=== PATIENT | female | born 1945 | race Caucasian/White ===

== ENCOUNTER → 2016-10-08 | Outpatient (CLI) | payer MEDICARE, OTHER ==
[2016-10-08 11:51] LABS: Basophils % (A) 1 %; CH 28.6; CHCM 32.6; Eosinophils # (A) 0.2 k/uL (0-0.7); Eosinophils % (A) 3 %; HCT 40.7 % (34.0-46.0); HGB 13.8 gm/dL (11.4-16.0); Luc # (Auto) 0.24; Luc % (Auto) 4; Lymphocytes # (A) 1.9 k/uL (1.0-4.8); Lymphocytes % (A) 34 %; MCH 29.8 pg (25.0-35.0); MCHC 33.8 g/dL (31.0-37.0); MCV 88.1 fL (80.0-100.0); Mean Platelet Volume 7.2; Monocytes # (A) 0.3 k/uL (0-1.0); Monocytes % (A) 5 %; Neutrophils % (A) 53 %; RBC 4.62 m/uL (3.80-5.40); WBC 5.7 k/uL (3.8-10.6); WBC (Perox) 6.17
[2016-10-08 12:05] LABS: Anion Gap 12 mmol/L; Blood Urea Nitrogen 17 mg/dL (7-17); Carbon Dioxide 29 mmol/L (22-30); Chloride 101 mmol/L (98-107); Non-African American GFR(MDRD) >60 (>60 ml/min/1.73 sqM); Potassium 4.2 mmol/L (3.5-5.1); Sodium 142 mmol/L (137-145)
== END | disposition home or self-care (01) ==
LOC: LABPAT 11:17
PROVIDERS: ATTEND Obstetrics & Gynecology
DX: Z01.818 Encounter for other preprocedural examination (principal); R35.0 Frequency of micturition
CPT/HCPCS: 36415; 80051; 82565; 84520; 85025; 86850; 86900; 86901; 87086

== ENCOUNTER 2016-10-16 06:01 | Day surgery (SDC) | payer MEDICARE, OTHER ==
--- NOTE | 2016-10-12 19:26 | HP ---
DATE OF ADMISSION: 10/16/2016 This is a 71-year-old white female, 6, para 6-0-0-5, who presents with complete uterine prolapse from Dr. Lora's care. Patient is menopausal. She denies vaginal bleeding. She is not currently sexually active. She states that she has to push the uterus back into the vaginal vault in order to completely empty the bladder. She denies urine leakage. No issues with bowel movements. She presents for surgical palliation, declining option of pessary and declining option for referral to urogynecologist. Second opinion is also offered and declined. Review of systems is otherwise negative. Past medical history is significant for anemia. PAST SURGICAL HISTORY: 1. Dental surgery in 2014. 2. Eye surgery in 2013. 3. Adenoidectomy and tonsillectomy in 1971. CURRENT MEDICATIONS: Multivitamin with iron daily. ALLERGIES include INSECTICIDE, to which she reports her throat closing and facial swelling. There are NO KNOWN MEDICAL ALLERGIES. FAMILY HISTORY: Significant for bone cancer in her mother, breast cancer in her mother, renal cancer in a sister, and father for heart attack. Reproductive history is significant for vaginal deliveries x6. She has 5 living children. SOCIAL HISTORY: Social alcohol, 2 to 4 cups of caffeine daily. Former smoker. She denies alcohol or drug use. On exam, this is a pleasant white female, 5 feet 5-1/2 inches, 154 pounds, BMI 25. Blood pressure 122/76, pulse in the 70s. Patient is afebrile. The neck is soft and supple with good range of motion. No thyromegaly. No cervical lymphadenopathy. Chest is clear to auscultation in all lassiter anteriorly and posteriorly with no rales, rhonchi or wheezing. Cardiovascular exam reveals regular rate and rhythm with no murmur, click or rub. Breasts are bilaterally symmetric to inspection with no skin changes, nipple discharge. No deformities. No axillary adenopathy. No discernible lesions or masses. Gastrointestinal exam reveals no organosplenomegaly, no obvious hernias, no CVA tenderness. Urogenital exam reveals a complete uterine prolapse along with a grade 4 cystocele and rectocele. Tissues are dry and atrophic but nontender. Rectal exam reveals FIT-negative stool. No rectal lesions or masses. There are no pelvic lymph nodes to palpation. Lymphatic system appears negative. IMPRESSION: Complete uterine prolapse along with cystocele and rectocele; patient requesting vaginal hysterectomy and anterior and posterior colporrhaphies. PLAN: We will proceed with vaginal hysterectomy, A&P repairs along with cystoscopy postoperatively. Patient is aware of the risks of surgery to include but not exclusive of damage to the bladder, bowels, ureters, blood vessels, or indeed any pelvic or abdominal organs. She understands the increased risk of damage secondary to the complete prolapse. She is declining option for pessary. She is declining option for referral to urogynecologist. Risks of anesthesia, including aspiration, nerve damage and , are all reviewed in detail. The ACOG pamphlet on this surgery has been given to the patient, and she has reviewed them. I believe she understands our discussion with no reservation or question.
[2016-10-15 13:47] VITALS: BMI 24.5
[~2016-10-16 06:01] MED LIST: HYDROmorphone 1 MG/ML 1 ML SYRINGE IVP PRN; MIDAZOLAM 2 MG/2 ML VIAL IV PRN; ONDANSETRON 4 MG/2 ML VIAL IVP ONE; ceFAZolin 2 GM in SODIUM CHLORIDE 0.9% 100 ML IVPB ONE
[2016-10-16] MEDS ORDERED: LIDOCAINE 1% 20 ML VIAL (10MG/ML) FOR IV START INTRADERMA ONE (06:15)
[2016-10-16] MEDS: LACTATED RINGERS 1,000 ML IV SCH (06:35)
[2016-10-16] MEDS ORDERED: MIDAZOLAM 2 MG/2 ML VIAL ONE (07:24)
[2016-10-16] MEDS ORDERED: MORPHINE SULFATE (PF) 0.3 MG/0.3 ML SYR ONE (07:24)
[2016-10-16] MEDS ORDERED: PROPOFOL 10 MG/ML 20 ML VIAL IV ONE (07:24)
[2016-10-16] MEDS ORDERED: fentaNYL (PF) 50 MCG/ML 2 ML AMP ONE (07:24)
[2016-10-16] MEDS ORDERED: VASOPRESSIN 20 UNIT/ML 1 ML VIAL SQ ONE ×2 (07:45→09:04)
[2016-10-16] MEDS ORDERED: BACITRACIN 500 UNIT/GM OINT 28.4 GM TUBE TOPICAL ONE (07:55)
[2016-10-16] MEDS ORDERED: ONDANSETRON 4 MG/2 ML VIAL IVP PRN (08:07)
[2016-10-16] MEDS ORDERED: MORPHINE SULFATE 4 MG/ML SYRINGE IVP PRN (08:07)
[2016-10-16] MEDS ORDERED: diphenhydrAMINE 50 MG/ML 1 ML VIAL IVP PRN ×2 (08:07→09:46)
[2016-10-16] MEDS ORDERED: NALOXONE 0.4 MG/ML 1 ML VIAL IV PRN (08:07)
[2016-10-16] MEDS ORDERED: KETOROLAC 30 MG/ML 1 ML VIAL IVP PRN ×2 (08:07→09:46)
[2016-10-16] MEDS ORDERED: LACTATED RINGERS 1,000 ML IV ONE ×2 (08:48)
[2016-10-16] MEDS ORDERED: ZOLPIDEM 5 MG TAB PO PRN (09:46)
[2016-10-16] MEDS ORDERED: IBUPROFEN 600 MG TAB PO PRN (09:46)
[2016-10-16] MEDS ORDERED: SIMETHICONE 80 MG CHEWABLE PO PRN (09:46)
[2016-10-16] MEDS ORDERED: METOCLOPRAMIDE 5 MG/ML 2 ML VIAL IVP PRN (09:46)
[2016-10-16] MEDS ORDERED: Acetaminophen-Codeine 300-30mg TAB PO PRN (09:46)
--- NOTE | 2016-10-16 09:46 | P.OP ---
Date of Procedure: 10/16/16 Preoperative Diagnosis: Grade 4 uterine prolapse, grade 4 cystocele, grade 4 rectocele. Postoperative Diagnosis: Same, normal-appearing ovaries, negative cystoscopy, negative rectal exam Procedure(s) Performed: Vaginal hysterectomy, anterior and posterior colporrhaphy's, cystoscopy Anesthesia: GETA Surgeon: Jeanette Alberts Air Quality Technician #1: Gris Washburn Estimated Blood Loss (ml): 300 IV fluids (ml): 1,500 Urine output (ml): 100 Pathology: other (Cervix and uterus) Condition: stable Disposition: PACU Description of Procedure: Patient brought to the operating suite where a general anesthetic is administered following a spinal with Duramorph. The patient is placed in the dorsal lithotomy position, the cervix vagina perineal bodies and lower abdomen are all prepped and draped in usual sterile fashion. The appropriate timeout is performed to assure proper patient and procedural identification. Antibiotics are given. Complete uterine prolapse is noted. Speculum was placed into the vagina. Anterior lip of the cervix is grasped with a double- tooth tenaculum. Cervix was injected circumferentially with a dilute Pitressin solution. Lateral restraint for approximate 100 mL of clear yellow urine. A hopi blade scalpel is used to incise the cervix circumferentially with V like positioning in the back. A sponge is used to sweep the mucosa from the underlying fascial plane, at all times the bladder swept well from the operative field to avoid bladder and/or ureteral injury. The peritoneum was entered at 6:00 and suture tied with 2-0 Vicryl, held with a hemostat. Large billed speculum is then placed. Again, mucosa is swept well from the operative field, Metzenbaum scissors are used anteriorly to protect the bladder plane. Sourav clamps are used in the uterosacral cardinal ligament complex these are clamped cut and held laterally with a hemostat. 2 additional pedicles are taken superior to this, uterine vasculature is identified, clamped cut and suture ligated. The uterus is then "walked out" posteriorly. Peritoneum is entered 12:00, atraumatically. Sourav clamps are used over the final pedicles and the specimen is sent to pathology. 0 Vicryl suture is used in a Gui stitch to tie, flashed, and retied these pedicles for excellent hemostasis. Sponge stick is then used and bilateral ovaries are inspected, small and atrophic. The shallow weighted speculum was then placed and the 2-0 Vicryl stitch placed at 6:00 is brought around in a pursestring fashion to close the peritoneum. The uterosacral cardinal ligament complex these are brought across, to incorporate the opposite complex as well as the vaginal mucosa. 2 additional [id number] sutures are used to close the vaginal wall. The anterior most opening is now grasped with Allis clamps. The anterior vaginal mucosa is injected with dilute Pitressin solution and Metzenbaum scissors are used in the midline to underlying the mucosa. A good plane is established. Allis clamps are used on the edges of the incision and a fanlike fashion. Lamar catheter is placed in the urine is noted to be clear. 2-0 Vicryl suture is used in an interrupted fashion to bring the mucosal edges together in the midline thereby reducing the large cystocele. Hemostasis is very good. Metzenbaum scissors are used to trim the redundant mucosa and a 2-0 Vicryl stitch is used in a running locking fashion to close the anterior most mucosa. Excellent reapproximation is achieved. The speculum was now removed A triangular portion of tissue is removed from the perineal body. The posterior vaginal mucosa is injected with the same dilute Pitressin solution. Metzenbaum scissors are used in the midline to undermine and open the mucosa. The edges are held in a fanlike fashion again with Allis clamps. A sponge rolled finger is used to separate the mucosa from the underllying fascial plane. 2-0 Vicryl sutures used in an interrupted fashion to bring the fascial edges together in the midline, thereby reducing the rectocele. Metzenbaum scissors are used to trim the redundant skin. 2-0 Vicryl is used in a running locking fashion to close the posterior mucosa. An episiotomy like closure is used to finish our repair. A wide bulbocavernosus stitch is used for excellent reapproximation and tone. A rectal exam is performed to assure no rectal defects, mucosa is smooth. Cystoscope was then placed in the bladder is infused with sterile saline. The bladder gamez are completely intact, no defects or puckering. No evidence of blood. Bilateral ureteral openings are noted to be freely peristalsing urine. Cystoscope was removed. Vagina is packed with a Kerlix sponge with basic tracing. Lamar catheter is noted to be draining clear urine. All sponge needle and instrument counts are correct. Vital signs are stable prior to leaving the operating room, blood pressure 133/72, pulse 60, 100% O2 saturation. Estimated blood loss total 300 mL's. Fluid replacement 1500 mL's. Complications: None.
[2016-10-17] MEDS: LACTATED RINGERS 1,000 ML IV SCH (06:19)
[2016-10-17 08:07] LABS: Basophils % (A) 0 %; CH 29.3; CHCM 33.9; Eosinophils # (A) 0.1 k/uL (0-0.7); Eosinophils % (A) 1 %; HCT 31.3 % (34.0-46.0); HDW 2.52; HGB 10.9 gm/dL (11.4-16.0); Luc % (Auto) 3; Lymphocytes # (A) 1.3 k/uL (1.0-4.8); Lymphocytes % (A) 20 %; MCH 30.3 pg (25.0-35.0); MCHC 34.9 g/dL (31.0-37.0); MCV 86.8 fL (80.0-100.0); Mean Platelet Volume 7.4; Monocytes # (A) 0.4 k/uL (0-1.0); Monocytes % (A) 6 %; Neutrophils # (A) 4.4 k/uL (1.3-7.7); Neutrophils % (A) 69 %; RBC 3.61 m/uL (3.80-5.40); WBC 6.3 k/uL (3.8-10.6); WBC (Perox) 6.73
[2016-10-17] MEDS: SENNOSIDES-DOCUSATE SODIUM 1 EACH TAB PO SCH ×2 (08:38)
[2016-10-17] MEDS ORDERED: ACETAMINOPHEN TAB 325 MG TAB PO PRN (09:48)
--- NOTE | 2016-10-17 11:02 | P.DS ---
Providers Expected date of discharge: 10/17/16 Attending physician: Jeanette Alberts - Discharge Diagnosis(es) (1) Uterine procidentia Current Visit: Yes Status: Acute Hospital Course: The patient is a 71-year-old 6 para 6005 who presented in referral with findings of complete uterine procidentia. She is not sexually active but reports that she has significant pressure and is forced to push the uterus back into the vaginal vault in order to empty her bladder. She denies any specific problems with moving her bowels. She was offered the option of pessary placement and declined in favor of surgical intervention. She declined referral to urogynecology for sacral spinous fixation. She was taken to the operating room where she underwent repair of her complete procidentia which would otherwise be characterized as grade 4 uterine prolapse, cystocele, and rectocele. The repair was carried out and uncomplicated fashion. Her postoperative course was unremarkable with vital signs remaining stable and her temperature was afebrile throughout. The on postoperative day #1, she had the Lamar catheter removed and underwent a voiding trial at which time she was able to void approximate 400 mL of urine with minimal residual as noted on bladder scan. She was tolerating regular diet and ambulating routinely. She reported normal bowel function having passed flatus. She was deemed stable for discharge on postoperative day #1 was discharged home to follow-up in the office in 2 weeks for a recheck and 6 weeks routinely. Her instructions included calling for any significantly increased vaginal bleeding, pain, urinary or GI concerns, fever, or anything else that concerned her. She was specifically instructed to do no heavy lifting of more than 5-10 pounds over the next 6 weeks time. She was lastly instructed to do no driving until off of all pain medications or 2 weeks' time, whichever came first. She understood all of her instructions and agrees to follow up as noted above. Discharge medications included her normal home medications as well as a prescription for Tylenol 3, 1-2 by mouth every 6 hours when necessary pain, #20 dispensed. She was intending to hold this prescription as she is currently managing her pain with Motrin alone. Discharge hemoglobin and hematocrit were 10.9 and 31.3 respectively. Procedures: #1. Vaginal hysterectomy #2. Anterior colporrhaphy #3. Posterior colporrhaphy #4. Diagnostic cystoscopy Patient Condition at Discharge: Stable Plan - Discharge Summary Discharge Medication List Multivitamin with Iron [Multivitamins with Iron] 1 each PO DAILY 10/15/16 [ History] Follow up Appointment(s)/Referral(s): Jeanette Alberts MD [STAFF PHYSICIAN] - 2 Weeks Discharge Disposition: HOME SELF-CARE
[2016-10-17 14:15] VITALS: BP 117/62; PULSE 64; RESP 14; TEMP 98.1
== END 2016-10-17 14:20 | disposition home or self-care (01) ==
LOC: OR 06:01 → 4FBP 09:20 → OR 10-17 14:20
PROVIDERS: ATTEND Obstetrics & Gynecology
DX: N81.3 Complete uterovaginal prolapse (principal); Z79.899 Other long term (current) drug therapy; Z82.49 Family history of ischemic heart disease and other diseases of the circulatory system; Z80.3 Family history of malignant neoplasm of breast; Z80.8 Family history of malignant neoplasm of other organs or systems; Z80.51 Family history of malignant neoplasm of kidney; Z87.891 Personal history of nicotine dependence
CPT/HCPCS: 88305; 85025; 58260; 57260; J2250; J1200; J0690; J2405; J2274; J3010; J2704; 86850; 86900; 86901; 88307

== ENCOUNTER → 2018-01-19 | Outpatient (CLI) | payer MEDICARE, OTHER ==
--- NOTE | 2018-01-19 11:51 | BD ---
EXAMINATION TYPE: Axial Bone Density DATE OF EXAM: 01/19/2018 CLINICAL HISTORY: Height: 65.25 inches Weight: 162 FRAX RISK QUESTIONS: Alcohol (3 or more units per day): no Family History (Parent hip fracture): no Glucocorticoids (More than 3mos): no (Ex: prednisone, prednisolone, methylprednisolone, dexamethasone, and hydrocortisone). History of Fracture in Adulthood: no Secondary Osteoporosis: 1. Type 1 Diabetes: no 2. Hyperthyroidism: no 3. Menopause before 45: no 4. Malnutrition: no 5. Chronic liver disease: no Rheumatoid Arthritis: no Current Tobacco Use: no RISK FACTORS HISTORY OF: Family History of Osteoporosis: no Active: yes Diet low in dairy products/other sources of calcium: no Postmenopausal woman: yes Take estrogen and/or progesterone medications: no Lost more than 2 inches in height since high school: unsure, may have been about 67.5 inches at one t [employer] Frequent falls: no Poor Health: no Hyperparathyroidism: no Adrenal Insufficiency: no MEDICATIONS: Prednisone or other steroids: no Thyroid Medications: no Osteoporosis Medications:no Additional Medications: n/a Additional History: EXAM MEASUREMENTS: Bone mineral densitometry was performed using the [employer] System. Bone mineral density as measured about the Lumbar spine is: ----- L1-L4(G/cm2): 1.013 T Score Values are as follows: ----- L2: -1.5 ----- L3: -0.9 ----- L4: -1.7 ----- L1-L4: -1.4 Bone mineral density BASELINE Bone mineral density about the R hip (g/cm2): 0.631 Bone mineral density about the L hip (g/cm2): 0.669 T Score values are as follows: -----R Neck: -2.9 -----L Neck: -2.7 -----R Total: -2.9 -----L Total: -2.7 Bone mineral density BASELINE IMPRESSION: 1. Osteoporosis about the bilateral femora. 2. Osteopenia about the lumbar spine. NOTE: T-SCORE=SD OF THE YOUNG ADULT MEAN.
== END | disposition home or self-care (01) ==
LOC: RADBDWWP 10:27
PROVIDERS: ATTEND Internal Medicine
DX: M81.0 Age-related osteoporosis without current pathological fracture (principal)
CPT/HCPCS: 77080

== ENCOUNTER → 2022-07-23 | Outpatient (CLI) | payer MEDICARE, OTHER ==
--- NOTE | 2022-07-23 16:10 | BD ---
EXAMINATION TYPE: Axial Bone Density DATE OF EXAM: 07/23/2022 COMPARISON: 01-19-18 CLINICAL HISTORY: 77 years year old Female. ICD-10 CODE: M85.80 oth disorders of bone density/struct ure Height: 64.5IN Weight: 169LB FRAX RISK QUESTIONS: Secondary Osteoporosis: RISK FACTORS HISTORY OF: Active: NO Postmenopausal woman: YES Lost more than 2 inches in height since high school: YES MEDICATIONS: Additional Medications: CALCIUM WITH VITAMIN D Additional History: EXAM MEASUREMENTS: Bone mineral densitometry was performed using the [employer] System. Bone mineral density as measured about the Lumbar spine is: ----- L1-L4(G/cm2): 1.005 T Score Values are as follows: ----- L1: -1.5 ----- L2: -2.5 ----- L3: -1.3 ----- L4: -1.0 ----- L1-L4: -1.5 Bone mineral density has: Decreased -1.9% since study of: 01-19-18 Bone mineral density about the R hip (g/cm2): 0.635 Bone mineral density about the L hip (g/cm2): 0.648 T Score values are as follows: -----R Neck: -2.7 -----L Neck: -2.6 -----R Total: -3.0 -----L Total: -2.9 Bone mineral density has: Decreased -1.7% since study of: 01-19-18 FRAX%s: The graph provided illustrates a 21.2% chance for a major osteoporotic fx and a 7.9% chance f or the hips probability for fx in 10 years time. IMPRESSION: Osteoporosis (T Score less than -2.5). There is increased fracture risk and therapy is usually indicated based on age. Re-Screen 1-2 years. NOTE: T-SCORE=SD OF THE YOUNG ADULT MEAN.
== END | disposition home or self-care (01) ==
LOC: RADBDWWP 09:55
PROVIDERS: ATTEND Family Medicine
DX: M81.0 Age-related osteoporosis without current pathological fracture (principal)
CPT/HCPCS: 77080

== ENCOUNTER → 2023-03-19 | Outpatient (CLI) | payer MEDICARE, OTHER ==
--- NOTE | 2023-03-19 11:21 | USB ---
Reason for Exam: Clinical finding. Patient History: Menarche at age 10. First Full-Term at age 18. Hysterectomy at age 69. Postmenopausal. Risk Values: [place] 5 year model risk: 1.5%. NCI Lifetime model risk: 2.3%. Technique: Method: Targeted. Findings: The area of palpable concern of the left breast, the lower outer quadrant of the left breast, the axilla of the left breast and the retroareolar of the left breast were scanned. Spiculated mass 4:00 position 6 cm from the nipple measuring 3.3 x 2.8 x 2.9 cm. Irregular margins and hypervascular vascularity seen. No additional masses noted. There is a normal sized lymph node within the left axilla with mildly thickened cortex. Tissue diagnosis is recommended.. Overall Assessment: Highly suggestive of malignancy, BI-RAD 5 Management: Ultrasound Core Biopsy of the left breast. A clinical breast exam by your physician is recommended on an annual basis and results should be correlated with mammographic findings. This exam should not preclude additional follow-up of suspicious palpable abnormalities. Results were given to the patient verbally at the time of exam. Electronically signed and approved by: Barney Rosario M.D. Radiologis
--- NOTE | 2023-03-22 09:07 | MM ---
Reason for Exam: Clinical finding. Indicated Problems: Lump or thickening of the left side (size 25) for 1 Year(s). Patient History: Menarche at age 10. First Full-Term at age 18. Hysterectomy at age 69. Postmenopausal. Risk Values: [place] 5 year model risk: 1.5%. NCI Lifetime model risk: 2.3%. Prior Study Comparison: No prior studies available for comparison. Tissue Density: There are scattered fibroglandular densities. Findings: Analyzed By CAD. Spiculated mass upper outer left breast 7 cm from the nipple measuring approximately 3.7 x 2.8 cm with a few internal calcifications seen compatible with malignancy. There is architectural distortion as well as probable ulceration. No additional masses are seen within either breast. Vascular calcifications seen bilaterally. Overall Assessment: Incomplete: need additional imaging evaluation, BI-RAD 0 Management: Diagnostic Breast Ultrasound of the left breast. Results were given to the patient verbally at the time of exam. Patient should continue monthly self-breast exams. A clinical breast exam by your physician is recommended on an annual basis. This exam should not preclude additional follow-up of suspicious palpable abnormalities. Note on [place] scores and lifetime risk: 1. A [place] score greater than 3% is considered moderate risk. If this is the case, consider specialist referral to assess eligibility for a risk reducing agent. 2. If overall lifetime risk for the development of breast cancer is 20% or higher, the patient may qualify for future screening with alternating mammogram and breast MRI. Electronically signed and approved by: Barney Rosario M.D. Radiologis
== END | disposition home or self-care (01) ==
LOC: RADMAMWWP 09:30
PROVIDERS: ATTEND Family Medicine
DX: N63.23 Unspecified lump in the left breast, lower outer quadrant (principal); Z78.0 Asymptomatic menopausal state
CPT/HCPCS: 77062; 77066

== ENCOUNTER → 2023-04-02 | Day surgery (SDC) | payer MEDICARE, OTHER ==
--- NOTE | 2023-04-07 14:46 | MM ---
Reason for Exam: Post Procedure Mammogram. Last screening mammogram was performed less than 1 month ago. Patient History: Menarche at age 10. First Full-Term at age 18. Hysterectomy at age 69. Postmenopausal. Risk Values: [place] 5 year model risk: 1.5%. NCI Lifetime model risk: 2.3%. Prior Study Comparison: 03/19/2023 Bilateral MG 3D diag mammo w/cad [facility] [place] 03/19/2023 Left US breast limited , [facility]. Tissue Density: Left: There are scattered fibroglandular densities. Pathology Description: Location: axilla. Marker Left Behind. Needle Type: Mammotome Cores: 4 Pathology Description: Location: 4 o'clock. Marker Left Behind. Needle Type: Mammotone Cores: 6 The procedure of ultrasound guided core biopsy was explained to the patient. Benefits, alternatives, and risks were discussed. An informed consent was then obtained. * The BI-RADS 5, 4:00 left breast mass is identified and targeted for biopsy. * The equivocal, mildly thickened and prominent but nonenlarged left axillary lymph node is identified and targeted for biopsy. The patient was placed in supine positioning for imaging and for the procedure. The overlying skin was prepped and draped in usual sterile fashion. Lidocaine was used as anesthetic into the skin followed by lidocaine/epinephrine into the subcutaneous tissue up to area of concern in the left breast at each site transportation logistics internship. SITE 1, 4:00 breast mass: Under ultrasound guidance, a 13-gauge vacuum-assisted mammotome Elite biopsy gun device was used to obtain 6 core samples. Following this, a coil clip was left in lesion. SITE 2, equivocal axillary node: Under ultrasound guidance, a 13-gauge vacuum-assisted mammotome Elite biopsy gun device was used to obtain 4 core samples. Following this, a butterfly clip was left in lesion. The patient tolerated the procedure well without any immediate complication. The patient was kept in the radiology department for short stay after the procedure and then discharged home in stable condition. Postprocedure mammogram: The patient was transferred to mammography for physician ordered post procedure mammogram for clip placement verification. Post procedure mammogram shows coil clip within the 4:00 posterior mass. The butterfly clip within the axilla is outside the field of view. IMPRESSION: Successful, uncomplicated ultrasound guided core biopsy of the BI-RADS 5 4:00 left breast mass as well as an equivocal left axillary lymph node. Full pathology results to follow. Pathology Results: Result: Malignant, Invasive ductal carcinoma. A. LEFT BREAST, 4:00 POSITION, ULTRASOUND GUIDED CORE BIOPSY: Invasive ductal carcinoma, Grade 2 (see Surgical Pathology Cancer Case Summary). B. LEFT AXILLA, ULTRASOUND GUIDED CORE BIOPSY: Fragments of reactive lymphoid tissue, negative for metastatic carcinoma (see note below). Overall Assessment: Malignant Assessment: MG diagnostic mammo LT wo CAD. - Left: Known biopsy proven malignancy, BI-RAD 6. Management: Surgical Consultation of the left breast. Electronically signed and approved by: Norberto Major M.D. Radiologist
== END ==
LOC: RADUSWWP 09:57
PROVIDERS: ATTEND Surgery
DX: C50.912 Malignant neoplasm of unspecified site of left female breast (principal)
CPT/HCPCS: 88305; 88342; 88341; 77065; 19083; 19084; A4648

== ENCOUNTER → 2023-04-15 | Outpatient (CLI) | payer MEDICARE, OTHER ==
[2023-04-15 15:34] VITALS: BP 149/73; PULSE 70; RESP 18; TEMP 98.1
--- NOTE | 2023-04-15 16:00 | P.GSHP ---
History of Present Illness H&P Date: 04/15/23 Chief Complaint: [id number]+Pr+Her2-G2 Valentine is an 78 year old female seen in consultation for Dr. 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 She had a bilateral mammogram on 03-19-23, this showed a left breast 3.7 cm lesion. No lesions in the right breast. She had not had a mammogram for many years prior to these mammograms. This led to an ultrasound of the left breast on the same date also showing a lymph node with a thickened cortex. Biopsy of both were done on 04-02-23. The had an invasive ductal cancer of the left ER+Pr+Her2-G2. The node was (-) for cancer. The patient has been able to feel the spot in her breast for about 1 year. She has not had any other surgeries or biopsies on her breast. She's not had any recent trauma or infection in her breasts. Caffiene: occasional tea nicotine: none chocolate: several times a week Family History: mother: renal/breast cancer maternal aunt (2): breast cancer sister: renal cancer Hormonal History: menarche: 10 5 living; 1 at age at first :17,breast fed: yes menopause: 50's Surgical History: cataract with lenses oral surgery has dentures tonsil/adenoids Medical History: none Social History: smoked for 1 year in 1970; 1 pack/ 4 days alcohol: none drugs: none - Constitutional Constitutional: Denies chills, Denies fever - EENT Eyes: denies blurred vision, denies pain Ears: deny: decreased hearing, tinnitus Ears, nose, mouth and throat: Denies headache, Denies sore throat - Breasts Breasts: bilateral: as per HPI - Cardiovascular Cardiovascular: Denies chest pain, Denies shortness of breath - Respiratory Respiratory: Denies cough, Denies 7 - Gastrointestinal Gastrointestinal: Denies abdominal pain, Denies diarrhea, Denies nausea, Denies vomiting - Genitourinary (Female) Genitourinary: Denies dysuria, Denies hematuria - Menstruation Menstruation: Reports postmenopausal - Musculoskeletal Musculoskeletal: Denies myalgias - Integumentary Integumentary: Denies pruritus, Denies rash - Neurological Neurological: Denies numbness, Denies weakness - Psychiatric Psychiatric: Denies anxiety, Denies depression - Endocrine Endocrine: Denies fatigue, Denies weight change - Hematologic/Lymphatic Comment: none - Allergic/Immunologic Allergic/Immunologic: Reports as per HPI Past Medical History Additional Past Medical History / Comment(s): HX ANEMIA. UTERINE PROLAPSE History of Any Multi-Drug Resistant Organisms: None Reported Past Surgical History: Adenoidectomy, Tonsillectomy Additional Past Surgical History / Comment(s): BILAT CATARACTS REMOVED. DENTAL SX Past Anesthesia/Blood Transfusion Reactions: No Reported Reaction Past Psychological History: No Psychological Hx Reported Smoking Status: Former smoker Past Alcohol Use History: Rare Additional Past Alcohol Use History / Comment(s): SMOKED FOR 1 YEAR IN 1971 Past Drug Use History: None Reported - Past Family History Mother Family Medical History: Cancer Sister(s) Family Medical History: Cancer Medications and Allergies Home Medications Medication Instructions Recorded Confirmed Type No Known Home Medications 04/15/23 04/15/23 History Allergies Allergy/AdvReac Type Severity Reaction Status Date / Time apple Allergy Swelling Unverified 04/15/23 15:36 mold Allergy Swelling Unverified 04/15/23 15:36 INSECTICIDES Allergy Anaphylaxis Uncoded 04/15/23 15:35 Surgical - Exam Vital Signs Temp Pulse Resp BP Pulse Ox 98.1 F 70 18 149/73 99 04/15/23 15:31 04/15/23 15:31 04/15/23 15:31 04/15/23 15:31 04/15/23 15:31 - General no distress - Eyes normal ocular movement - ENT no hearing loss - Neck trachea midline - Respiratory normal respiratory effort, clear to auscultation - Cardiovascular Rhythm: regular Heart Sounds: normal: S1, S2 - Abdomen Abdomen: soft, non tender, no guarding, no rigid, no rebound - Integumentary normal turgor - Neurologic no disoriented, no combative - Musculoskeletal normal gait, normal posture - Psychiatric oriented to time, oriented to person, oriented to place, speech is normal, memory intact Breast Exam: BRA: 36C inspection: Skin retraction lateral aspect of the left breast, bilateral grade 2 ptosis Palpation: Right breast: Multiple positional exam no dominant masses or nodules of concern Right axilla: No adenopathy of concern Left breast: Retraction in the lateral aspect of the breast with question of tumor extruding very close to the surface of the skin, approximately 4 cm in size freely mobile or other dominant masses or nodules of concern Left axilla: No adenopathy of concern Results Mammogram and ultrasound results reviewed Assessment and Plan Assessment: Impression: Biopsy-proven left breast invasive ductal carcinoma T2 and 0 ERP positive MS positive HER-2/clair negative G2 Plan: Presentation of case at tumor board Appointment medical oncology CC: Dr. Myers
== END ==
LOC: WWCWWP 14:43
PROVIDERS: ATTEND Surgery
DX: C50.912 Malignant neoplasm of unspecified site of left female breast (principal); Z17.0 Estrogen receptor positive status [ER+]; Z80.3 Family history of malignant neoplasm of breast; Z87.891 Personal history of nicotine dependence; Z91.018 Allergy to other foods; Z91.09 Other allergy status, other than to drugs and biological substances; Z91.038 Other insect allergy status

== ENCOUNTER → 2023-05-19 | Outpatient (CLI) | payer MEDICARE, OTHER ==
[2023-05-19 12:54] VITALS: BP 109/68; PULSE 77; RESP 17; TEMP 97.8
--- NOTE | 2023-05-19 13:52 | P.PN ---
Subjective Progress Note Date: 05/19/23 History of Present Illness H&P Date: 05-19-23 Chief Complaint: [id number]+Pr+Her2-G2; stage IIIB Valentine is an 78 year old female seen in consultation for Dr. 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 She had a bilateral mammogram on 03-19-23, this showed a left breast 3.7 cm lesion. No lesions in the right breast. She had not had a mammogram for many years prior to these mammograms. This led to an ultrasound of the left breast on the same date also showing a lymph node with a thickened cortex. Biopsy of both were done on 04-02-23. The had an invasive ductal cancer of the left ER+Pr+Her2-G2. The node was (-) for cancer. The patient has been able to feel the spot in her breast for about 1 year. She has not had any other surgeries or biopsies on her breast. She's not had any recent trauma or infection in her breasts. She has recently done 17 days of juicing and ingesting hydrogen peroxide and exercising to improve her immune system. Presentation of case at tumor board done 05-12-23 PET 05-12-23 no mets appointment medical oncology DR. Crowell 04-19-23/ discussed with him and he is aware patient does not want chemotherapy genetic testing (-) oncotype 32 she has declined chemotherapy [id number]_Her2-G2 left breast invasive ductal cancer Caffiene: occasional tea nicotine: none chocolate: several times a week Family History: mother: renal/breast cancer maternal aunt (2): breast cancer sister: renal cancer Hormonal History: menarche: 10 5 living; 1 at age at first :17,breast fed: yes menopause: 50's Surgical History: cataract with lenses oral surgery has dentures tonsil/adenoids Medical History: none Social History: smoked for 1 year in 1970; 1 pack/ 4 days alcohol: none drugs: none - Constitutional Constitutional: Denies chills, Denies fever - EENT Eyes: denies blurred vision, denies pain Ears: deny: decreased hearing, tinnitus Ears, nose, mouth and throat: Denies headache, Denies sore throat - Breasts Breasts: bilateral: as per HPI - Cardiovascular Cardiovascular: Denies chest pain, Denies shortness of breath - Respiratory Respiratory: Denies cough - Gastrointestinal Gastrointestinal: Denies abdominal pain, Denies diarrhea, Denies nausea, Denies vomiting - Genitourinary (Female) Genitourinary: Denies dysuria, Denies hematuria - Menstruation Menstruation: Reports postmenopausal - Musculoskeletal Musculoskeletal: Denies myalgias - Integumentary Integumentary: Denies pruritus, Denies rash - Neurological Neurological: Denies numbness, Denies weakness - Psychiatric Psychiatric: Denies anxiety, Denies depression - Endocrine Endocrine: Denies fatigue, Denies weight change - Hematologic/Lymphatic Comment: none - Allergic/Immunologic Allergic/Immunologic: Reports as per HPI Past Medical History Additional Past Medical History / Comment(s): HX ANEMIA. UTERINE PROLAPSE History of Any Multi-Drug Resistant Organisms: None Reported Past Surgical History: Adenoidectomy, Tonsillectomy Additional Past Surgical History / Comment(s): BILAT CATARACTS REMOVED. DENTAL SX Past Anesthesia/Blood Transfusion Reactions: No Reported Reaction Past Psychological History: No Psychological Hx Reported Smoking Status: Former smoker Past Alcohol Use History: Rare Additional Past Alcohol Use History / Comment(s): SMOKED FOR 1 YEAR IN 1971 Past Drug Use History: None Reported - Past Family History Mother Family Medical History: Cancer Sister(s) Family Medical History: Cancer Medications and Allergies Home Medications Medication Instructions Recorded Confirmed Type No Known Home Medications 04/15/23 04/15/23 History Allergies Allergy/AdvReac Type Severity Reaction Status Date / Time apple Allergy Swelling Unverified 04/15/23 15:36 mold Allergy Swelling Unverified 04/15/23 15:36 INSECTICIDES Allergy Anaphylaxis Uncoded 04/15/23 15:35 Objective - Vital Signs Vital signs: Vital Signs Temp 97.8 F 05/19/23 12:43 Pulse 77 05/19/23 12:43 Resp 17 05/19/23 12:43 BP 109/68 05/19/23 12:43 Pulse Ox 99 05/19/23 12:43 FiO2 Intake & Output 05/18/23 05/19/23 05/19/23 18:59 06:59 18:59 Weight 72.575 kg - Constitutional General appearance: Present: cooperative - EENT Eyes: Present: EOMI - Neck Neck: Present: normal ROM - Respiratory Respiratory: bilateral: CTA - Cardiovascular Rhythm: regular Heart sounds: normal: S1, S2 - Gastrointestinal General gastrointestinal: Present: soft - Musculoskeletal Musculoskeletal: Present: gait normal - Psychiatric Psychiatric: Present: A&O x's 3, appropriate affect, intact judgment & insight - Additional findings Additional findings: Breast Exam: BRA: 36C inspection: Skin retraction lateral aspect of the left breast, bilateral grade 2 ptosis Palpation: Right breast: Multiple positional exam no dominant masses or nodules of concern Right axilla: No adenopathy of concern Left breast: Retraction in the lateral aspect of the breast with question of tumor extruding very close to the surface of the skin, approximately 4 cm in size freely mobile or other dominant masses or nodules of concern Left axilla: No adenopathy of concern Assessment and Plan Assessment: Impression: Biopsy-proven left breast invasive ductal carcinoma T3N0M0 ERPR(+) HER-2/clair negative G2; Plan: Presentation of case at tumor board done 05-12-23 PET 05-12-23 no mets appointment medical oncology DR. Crowell 04-19-23/ discussed with him and he is aware patient does not want chemotherapy genetic testing (-) oncotype 32 We have talked about surgical treatment options which would be lumpectomy plus radiation versus mastectomy plus or minus reconstruction. We've also talked about sentinel node biopsy and axillary node dissection. We talked about the choosing wisely criteria that she may not benefit from sentinel node biopsy. At this time we are going to present her case at tumor board; she has declined chemotherapy I discussed that this is a stage IIIB left mastectomy and sentinal node injection left and left sentinal node biopsy possible left axillary node resection Discussed appointment with plastic surgery and/or reconstruction and she has not interested in this at the present time Risk and benefits of the procedure discussed with the patient this can include but are not limited to bleeding, infection, reaction to the anesthetic. The patient understands that depending on the troy status and the margins she may be recommended to have radiation therapy. This was sentinel node biopsy she may have decreased sensation to the upper arm, lymphedema, or injury of thoracodorsal or long thoracic nerve and scapula. She understands this and wishes to proceed. We have also discussed the choosing wisely guidelines however she would like to have a sentinel node sampling. CC: Dr. Myers
== END ==
LOC: WWCWWP 12:12
PROVIDERS: ATTEND Surgery
DX: C50.912 Malignant neoplasm of unspecified site of left female breast (principal); Z17.0 Estrogen receptor positive status [ER+]; Z80.3 Family history of malignant neoplasm of breast; Z91.018 Allergy to other foods; Z91.09 Other allergy status, other than to drugs and biological substances; Z91.038 Other insect allergy status; Z87.891 Personal history of nicotine dependence

== ENCOUNTER 2023-06-21 06:46 | Day surgery (SDC) | payer MEDICARE, OTHER ==
--- NOTE | 2023-06-17 07:48 | P.PN ---
Subjective Progress Note Date: 06/17/23 left breast invasive ductal cancer [id number]+Pr+Her2-G2; stage IIIB if there is skin involvement vs IB if no skin involvement Valentine is an 78 year old female seen in consultation for Dr. 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 She had a bilateral mammogram on 03-19-23, this showed a left breast 3.7 cm lesion. No lesions in the right breast. She had not had a mammogram for many years prior to these mammograms. This led to an ultrasound of the left breast on the same date also showing a lymph node with a thickened cortex. Biopsy of both were done on 04-02-23. The had an invasive ductal cancer of the left ER+Pr+Her2-G2. The node was (-) for cancer. The patient has been able to feel the spot in her breast for about 1 year. She has not had any other surgeries or biopsies on her breast. She's not had any recent trauma or infection in her breasts. She has recently done 17 days of juicing and ingesting hydrogen peroxide and exercising to improve her immune system. Presentation of case at tumor board done 05-12-23 PET 05-12-23 no mets appointment medical oncology DR. Crowell 04-19-23/ discussed with him and he is aware patient does not want chemotherapy genetic testing (-) oncotype 32 she has declined chemotherapy T2 or T4 [id number]+Pr_Her2-G2 left breast invasive ductal cancer Caffiene: occasional tea nicotine: none chocolate: several times a week Family History: mother: renal/breast cancer maternal aunt (2): breast cancer sister: renal cancer Hormonal History: menarche: 10 5 living; 1 at age at first :17,breast fed: yes menopause: 50's Surgical History: cataract with lenses oral surgery has dentures tonsil/adenoids Medical History: none Social History: smoked for 1 year in 1970; 1 pack/ 4 days alcohol: none drugs: none - Constitutional Constitutional: Denies chills, Denies fever - EENT Eyes: denies blurred vision, denies pain Ears: deny: decreased hearing, tinnitus Ears, nose, mouth and throat: Denies headache, Denies sore throat - Breasts Breasts: bilateral: as per HPI - Cardiovascular Cardiovascular: Denies chest pain, Denies shortness of breath - Respiratory Respiratory: Denies cough - Gastrointestinal Gastrointestinal: Denies abdominal pain, Denies diarrhea, Denies nausea, Denies vomiting - Genitourinary (Female) Genitourinary: Denies dysuria, Denies hematuria - Menstruation Menstruation: Reports postmenopausal - Musculoskeletal Musculoskeletal: Denies myalgias - Integumentary Integumentary: Denies pruritus, Denies rash - Neurological Neurological: Denies numbness, Denies weakness - Psychiatric Psychiatric: Denies anxiety, Denies depression - Endocrine Endocrine: Denies fatigue, Denies weight change - Hematologic/Lymphatic Comment: none - Allergic/Immunologic Allergic/Immunologic: Reports as per HPI Past Medical History Additional Past Medical History / Comment(s): HX ANEMIA. UTERINE PROLAPSE History of Any Multi-Drug Resistant Organisms: None Reported Past Surgical History: Adenoidectomy, Tonsillectomy Additional Past Surgical History / Comment(s): BILAT CATARACTS REMOVED. DENTAL SX Past Anesthesia/Blood Transfusion Reactions: No Reported Reaction Past Psychological History: No Psychological Hx Reported Smoking Status: Former smoker Past Alcohol Use History: Rare Additional Past Alcohol Use History / Comment(s): SMOKED FOR 1 YEAR IN 1971 Past Drug Use History: None Reported - Past Family History Mother Family Medical History: Cancer Sister(s) Family Medical History: Cancer Medications and Allergies Home Medications Medication Instructions Recorded Confirmed Type No Known Home Medications 04/15/23 04/15/23 History Allergies Allergy/AdvReac Type Severity Reaction Status Date / Time apple Allergy Swelling Unverified 04/15/23 15:36 mold Allergy Swelling Unverified 04/15/23 15:36 INSECTICIDES Allergy Anaphylaxis Uncoded 04/15/23 15:35 Objective - Vital Signs Vital signs: Intake & Output 06/16/23 06/17/23 06/17/23 18:59 06:59 18:59 Weight 72.121 kg - Constitutional General appearance: Present: cooperative - EENT Eyes: Present: EOMI - Neck Neck: Present: normal ROM - Respiratory Respiratory: bilateral: CTA - Cardiovascular Heart sounds: normal: S1, S2 - Integumentary Integumentary: Present: normal turgor - Psychiatric Psychiatric: Present: A&O x's 3, appropriate affect, intact judgment & insight - Additional findings Additional findings: Breast Exam: BRA: 36C inspection: Skin retraction lateral aspect of the left breast, bilateral grade 2 ptosis Palpation: Right breast: Multiple positional exam no dominant masses or nodules of concern Right axilla: No adenopathy of concern Left breast: Retraction in the lateral aspect of the breast with question of tumor extruding very close to the surface of the skin, approximately 4 cm in size freely mobile or other dominant masses or nodules of concern Left axilla: No adenopathy of concern Assessment and Plan Assessment: Impression: Biopsy-proven left breast invasive ductal carcinoma T2 or T4 N0M0 ERPR(+) HER- 2/clair negative G2; Plan: Presentation of case at tumor board done 05-12-23 PET 05-12-23 no mets appointment medical oncology DR. Crowell 04-19-23/ discussed with him and he is aware patient does not want chemotherapy genetic testing (-) oncotype 32 We have talked about surgical treatment options which would be lumpectomy plus radiation versus mastectomy plus or minus reconstruction. We've also talked about sentinel node biopsy and axillary node dissection. We talked about the choosing wisely criteria that she may not benefit from sentinel node biopsy. At this time we are going to present her case at tumor board; she has declined chemotherapy I discussed that this is a stage IIIB left mastectomy and sentinal node injection left and left sentinal node biopsy possible left axillary node resection Discussed appointment with plastic surgery and/or reconstruction and she has not interested in this at the present time Risk and benefits of the procedure discussed with the patient this can include but are not limited to bleeding, infection, reaction to the anesthetic. The patient understands that depending on the troy status and the margins she may be recommended to have radiation therapy. This was sentinel node biopsy she may have decreased sensation to the upper arm, lymphedema, or injury of thoracodorsal or long thoracic nerve and scapula. She understands this and wishes to proceed. We have also discussed the choosing wisely guidelines however she would like to have a sentinel node sampling. CC: Dr. Myers
[~2023-06-21 06:46] MED LIST changes: +HEPARIN SODIUM,PORCINE 5,000 UNIT/ML 1 ML VIAL SQ PRN; -HYDROmorphone 1 MG/ML 1 ML SYRINGE IVP PRN; -MIDAZOLAM 2 MG/2 ML VIAL IV PRN; -ONDANSETRON 4 MG/2 ML VIAL IVP ONE; -ceFAZolin 2 GM in SODIUM CHLORIDE 0.9% 100 ML IVPB ONE
[2023-06-21] MEDS ORDERED: DEXAMETHASONE SOD PHOSPHATE 4 MG/ML 1 ML VIAL IV ONE (07:07)
[2023-06-21] MEDS ORDERED: LIDOCAINE 1% (10MG/ML) FOR IV START INTRADERMA PRN (07:07)
[2023-06-21] MEDS ORDERED: MIDAZOLAM 2 MG/2 ML VIAL IV PRN (07:07)
[2023-06-21] MEDS ORDERED: HYDROmorphone 0.5 MG/0.5 ML SYRINGE IVP PRN (07:07)
[2023-06-21] MEDS ORDERED: LACTATED RINGERS 1,000 ML IV SCH (07:07)
[2023-06-21] MEDS ORDERED: ONDANSETRON 4 MG/2 ML VIAL IVP ONE (07:07)
[2023-06-21] MEDS ORDERED: fentaNYL (PF) 50 MCG/ML 2 ML AMP IV PRN (07:07)
--- NOTE | 2023-06-21 08:49 | P.NAPBC ---
NAPBC Queries - NAPBC Queries Was patient's case review presented at [facility] tumor board? If no, comment.: Yes Was patient's pathology reviewed at [facility]? If no, comment.: Yes Was breast conservation surgery offered? If no, comment.: No Was sentinel node biopsy offered? If no, comment.: Yes Was diagnosis confirmed by percutaneous core biopsy? If no, comment.: Yes Is patient mastectomy patient?: Yes Was a preop referral to reconstructive surgeon offered?: No (patient declined) Clinical Stage: T2 vs T4 N0M0ER+Pr+Her2-G2 stage IB or stage IIIb depending on pathoogy of skin involvement
[2023-06-21] MEDS ORDERED: fentaNYL (PF) 50 MCG/ML 2 ML AMP ONE (08:57)
[2023-06-21] MEDS ORDERED: LIDOCAINE 1% INJ 10MG/ML (20 ML MDV) ONE (08:57)
[2023-06-21] MEDS ORDERED: PROPOFOL 10 MG/ML 20 ML VIAL IV ONE (08:57)
[2023-06-21] MEDS ORDERED: SUCCINYLCHOLINE CHLORIDE 200 MG/10 ML VIAL IV ONE (08:57)
--- NOTE | 2023-06-21 09:58 | NM ---
EXAMINATION TYPE: NM sentinel node injection DATE OF EXAM: 06/21/2023 COMPARISON: NONE INDICATION: Abnormal mammogram. Informed consent was obtained. A timeout was performed. The area around the left nipple was cleansed with alcohol. In a single dose, a total of 522 uCi Anupam hnetium 99m Tilmanocept was injected. The patient tolerated the procedure very well. IMPRESSION: 1. Successful injection for sentinel node evaluation.
[2023-06-21] MEDS ORDERED: IV FLUID CONTINUATION 1,000 ML IV ONE (10:54)
[2023-06-21] MEDS ORDERED: ONDANSETRON 4 MG/2 ML VIAL IVP PRN (11:12)
[2023-06-21] MEDS ORDERED: NALOXONE 0.4 MG/ML 1 ML VIAL IV PRN (11:12)
[2023-06-21] MEDS ORDERED: HYDROcodone/APAP 5-325MG 1 EACH TAB PO PRN (11:12)
[2023-06-21] MEDS ORDERED: MELATONIN 3 MG TABLET PO PRN (11:12)
[2023-06-21] MEDS ORDERED: MORPHINE SULFATE 4 MG/ML SYRINGE IVP PRN (11:12)
--- NOTE | 2023-06-21 11:12 | P.PCN ---
Date of Procedure: 06/21/23 Preoperative Diagnosis: Left breast invasive ductal carcinoma Postoperative Diagnosis: Same Procedure(s) Performed: Left simple mastectomy, left deep axillary node resection Anesthesia: STEPHANIEA Surgeon: Zakiya Khan Estimated Blood Loss (ml): 20 IV fluids (ml): 400 Pathology: other (Left breast, left deep axillary lymph node) Condition: stable Disposition: floor Indications for Procedure: Left breast invasive ductal carcinoma Operative Findings: tumor lower outer quadrant left breast Description of Procedure: The patient was seen initially by radiology. Radiotracer was injected in the left periareolar region. The patient was brought to the operative suite. Following induction of anesthesia the neoprobe was used to interrogate the axilla. Radioactivity was identified. The left breast and axilla were prepped and draped in a sterile fashion. The skin markings were placed for a left mastectomy. The patient had a tumor that was eroding close to the skin possibly through the skin in the lower outer quadrant of the breast. This was approximately 3 cm in size. Using a skin marker superior and inferior skin flaps were outlined. These were then dissected down to the pectoralis muscle. Dissection was performed removing the breast from the pectoralis muscle using the electrocautery device as well as the Harmonic scalpel as necessary. The breast was removed. A short suture was placed superiorly and a long suture laterally. Dissection was performed in the axilla. In the axilla the neoprobe was used to identify a radioactive lymph node. A deep axillary node was identified. The tissue was grasped using an Allis clamp. This was a deep axillary node. Careful dissection was performed and this tissue was removed. The 10 second count on the lymph node was 3834. The background 10 second count was 18. After we assured that hemostasis was attained the wound was well irrigated. Surgicel in powder form was placed. A #10 DIEGO drain was placed. This was secured using a nylon suture. Additional tissue was removed from the superior flap near the area where the tumor had been present as a new superior margin. Interrupted 3-0 Vicryl subcutaneous sutures were placed. A running 3-0 Vicryl subcutaneous suture was placed. A 4-0 Monocryl subcuticular suture was placed. Surgical glue was placed. The patient tolerated the procedure in stable condition. All instrument and sponge counts were correct at the end of the case.
[2023-06-21] MEDS ORDERED: hydrALAZINE HCL 20 MG/ML 1 ML VIAL IV ONE (12:05)
[2023-06-21] MEDS: DEXTROSE 5%-0.45% NACL 1,000 ML IV SCH (12:53)
--- NOTE | 2023-06-21 17:16 | P.CONS ---
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 Patient pain is well-controlled. Denied any dysuria fever chills. REVIEW OF SYSTEMS: CONSTITUTIONAL: No fever, no malaise, no fatigue. HEENT: No recent visual problems or hearing problems. Denied any sore throat. CARDIOVASCULAR: No chest pain, orthopnea, PND, no palpitations, no syncope. PULMONARY: No shortness of breath, no cough, no hemoptysis. GASTROINTESTINAL: No diarrhea, no nausea, no vomiting, no abdominal pain. NEUROLOGICAL: No headaches, no weakness, no numbness. HEMATOLOGICAL: Denies any bleeding or petechiae. GENITOURINARY: Denies any burning micturition, frequency, or urgency. MUSCULOSKELETAL/RHEUMATOLOGICAL: Denies any joint pain, swelling, or any muscle pain. ENDOCRINE: Denies any polyuria or polydipsia. The rest of the 14-point review of systems is negative. PHYSICAL EXAMINATION: GENERAL: The patient is alert and oriented x3, not in any acute distress. Well developed, well nourished. HEENT: Pupils are round and equally reacting to light. EOMI. No scleral icterus. No conjunctival pallor. Normocephalic, atraumatic. No pharyngeal erythema. No thyromegaly. CARDIOVASCULAR: S1 and S2 present. No murmurs, rubs, or gallops. PULMONARY: Chest is clear to auscultation, no wheezing or crackles. ABDOMEN: Soft, nontender, nondistended, normoactive bowel sounds. No palpable organomegaly. MUSCULOSKELETAL: No joint swelling or deformity. EXTREMITIES: No cyanosis, clubbing, or pedal edema. NEUROLOGICAL: Gross neurological examination did not reveal any focal deficits. SKIN: No rashes. Breasts were not examined Assessment and plan -Left mastectomy: Patient pain is well controlled at this time clinically doing well. Recommended incentive spirometry to prevent atelectasis postoperatively. Left breast cancer Further recommendations from medicine perspective DVT prophylaxis: As per primary service Past Medical History Past Medical History: Cancer Additional Past Medical History / Comment(s): HX ANEMIA. bladder PROLAPSE, some urgency and leakage. left breast cancer History of Any Multi-Drug Resistant Organisms: None Reported Past Surgical History: Adenoidectomy, Hysterectomy, Tonsillectomy Additional Past Surgical History / Comment(s): BILAT CATARACTS REMOVED. DENTAL SX Past Anesthesia/Blood Transfusion Reactions: No Reported Reaction Past Psychological History: No Psychological Hx Reported Smoking Status: Former smoker Past Alcohol Use History: Rare Additional Past Alcohol Use History / Comment(s): SMOKED FOR 1 YEAR IN 1971 Past Drug Use History: None Reported - Past Family History Mother Family Medical History: Cancer Sister(s) Family Medical History: Cancer Medications and Allergies Home Medications Medication Instructions Recorded Confirmed Type Unk Vitamin C 1 tab PO DAILY 06/16/23 06/16/23 History Unk Vitamin D 1 tab PO DAILY 06/16/23 06/16/23 History Unk Zinc 1 tab PO DAILY 06/16/23 06/16/23 History HYDROcodone/APAP 5-325MG [[place] 5] 1 - 2 each PO Q6HR PRN #20 tab 06/21/23 Rx Allergies Allergy/AdvReac Type Severity Reaction Status Date / Time apple Allergy Swelling Verified 06/21/23 07:18 mold Allergy Swelling Verified 06/21/23 07:18 INSECTICIDES Allergy Anaphylaxis Uncoded 06/21/23 07:08 Physical Exam Vitals: Vital Signs Temp Pulse Resp BP Pulse Ox 06/21/23 14:28 63 18 127/70 99 06/21/23 13:58 69 18 139/75 99 06/21/23 13:28 97.5 F L 66 18 147/72 99 06/21/23 13:13 68 18 132/72 100 06/21/23 12:58 73 18 146/77 95 06/21/23 12:43 97.0 F L 77 18 139/72 98 06/21/23 12:29 58 L 16 157/77 95 06/21/23 12:18 57 L 16 173/74 96 06/21/23 12:06 65 16 177/76 96 06/21/23 11:51 78 16 178/79 100 06/21/23 11:36 74 16 155/85 100 06/21/23 11:21 96.8 F L 68 16 154/81 99 06/21/23 08:20 66 16 138/69 94 L 06/21/23 07:13 97.9 F 83 16 143/73 97 Intake and Output 06/21/23 06/21/23 06/21/23 06:59 14:59 22:59 Intake Total 1300 Output Total 670 Balance 630 Intake: IV 1300 Output: Urine 650 Estimated Blood Loss 20 Other: # Voids 1 Weight 71.8 kg
[2023-06-21] MEDS: HEPARIN SODIUM,PORCINE 5,000 UNIT/ML 1 ML VIAL SQ SCH (22:41)
[2023-06-22] MEDS: DEXTROSE 5%-0.45% NACL 1,000 ML IV SCH (00:23)
[2023-06-22 00:52] VITALS: RESP 16
[2023-06-22 06:54] LABS: Basophils % (A) 0 %; Eosinophils % (A) 0 %; HCT 34.3 % (34.0-46.0); HGB 11.3 gm/dL (11.4-16.0); Lymphocytes # (A) 1.9 k/uL (1.0-4.8); Lymphocytes % (A) 23 %; MCV 87.9 fL (80.0-100.0); Mean Platelet Volume 9.2; Monocytes # (A) 0.5 k/uL (0-1.0); Monocytes % (A) 6 %; Neutrophils # (A) 5.9 k/uL (1.3-7.7); Neutrophils % (A) 68 %; Platelet Count 152 k/uL (150-450); RDW 14.9 % (11.5-15.5); WBC 8.6 k/uL (3.8-10.6)
[2023-06-22 07:08] LABS: African American GFR (CKD) 83 (>60 ml/min/1.73 sqM); Anion Gap 5 mmol/L; Blood Urea Nitrogen 12 mg/dL (7-17); Carbon Dioxide 27 mmol/L (22-30); Chloride 105 mmol/L (98-107); Glucose 92 mg/dL (74-99); Non-African American GFR(CKD) 72 (>60 ml/min/1.73 sqM); Potassium 3.8 mmol/L (3.5-5.1); Sodium 137 mmol/L (137-145)
[2023-06-22] MEDS ORDERED: VITAMIN D PO SCH (09:00)
[2023-06-22] MEDS ORDERED: ZINC PO SCH (09:00)
[2023-06-22] MEDS ORDERED: VITAMIN C PO SCH (09:00)
[2023-06-22 09:11] VITALS: BP 122/66; PULSE 67; TEMP 98.1
[2023-06-22] MEDS: HEPARIN SODIUM,PORCINE 5,000 UNIT/ML 1 ML VIAL SQ SCH (09:18)
--- NOTE | 2023-06-22 12:26 | P.PN ---
Subjective Progress Note Date: 06/22/23 Principal diagnosis: Left breast invasive ductal carcinoma The patient is postop day #1 left breast mastectomy with deep sentinel node biopsy. Postoperatively she has done well. She is ready for discharge. DIEGO output is serosanguineous in nature. Objective - Vital Signs Vital signs: Vital Signs Temp 98.1 F 06/22/23 08:00 Pulse 67 06/22/23 08:00 Resp 16 06/22/23 08:00 BP 122/66 06/22/23 08:00 Pulse Ox 97 06/22/23 00:00 FiO2 Intake & Output 06/21/23 06/22/23 06/22/23 18:59 06:59 18:59 Intake Total 1300 Output Total 670 65 Balance 630 -65 Weight 71.8 kg Intake: IV 1300 Output: Drainage 65 Left Breast 65 Urine 650 Estimated Blood Loss 20 Other: # Voids 1 2 # Bowel Movements 1 - Constitutional General appearance: Present: cooperative - EENT Eyes: Present: EOMI ENT: Present: hearing grossly normal - Neck Neck: Present: normal ROM - Respiratory Respiratory: bilateral: CTA - Cardiovascular Heart sounds: normal: S1, S2 - Additional findings Additional findings: Incision left chest wall and dry, small seroma which was able to be evacuated with milking the DIEGO drain - Labs CBC & Chem 7: 06/22/23 06:22 06/22/23 06:22 Labs: Abnormal Lab Results - Last 24 Hours (Table) 06/22/23 Range/Units 06:22 Hgb 11.3 L (11.4-16.0) gm/dL Assessment and Plan Assessment: Impression: Biopsy-proven left breast invasive ductal carcinoma T2 or T4 N0M0 ERPR(+) HER- 2/clair negative G2; POD #1 left mastectomy with deep sentinel node biopsy Plan Discharge home to be followed as an outpatient Teach patient drain care
--- NOTE | 2023-06-22 12:28 | P.DS ---
Providers Attending physician: Zakiya Khan Consults: 06/21/23 11:15 Consult Physician Routine Consulting Provider: Albert Denise Consult Reason/Comments: medical managment Do you want consulting provider notified?: Yes Primary care physician: [facility] Course: The patient is an 78-year-old white female postop day #1 left mastectomy for invasive ductal carcinoma and deep sentinel node biopsy. Postoperatively she has done well and is able to be discharged home to be followed as an outpatient. Plan - Discharge Summary Discharge Rx Participant: Yes New Discharge Prescriptions: New HYDROcodone/APAP 5-325MG [[place] 5] 1 - 2 each PO Q6HR PRN #20 tab PRN Reason: Pain No Action Unk Zinc 1 tab PO DAILY Unk Vitamin D 1 tab PO DAILY Unk Vitamin C 1 tab PO DAILY Discharge Medication List Unk Vitamin C 1 tab PO DAILY 06/16/23 [History] Unk Vitamin D 1 tab PO DAILY 06/16/23 [History] Unk Zinc 1 tab PO DAILY 06/16/23 [History] HYDROcodone/APAP 5-325MG [[place] 5] 1 - 2 each PO Q6HR PRN #20 tab 06/21/23 [Rx] Follow up Appointment(s)/Referral(s): Zakiya Khan MD [STAFF PHYSICIAN] - 3 Days Activity/Diet/Wound Care/Special Instructions: Do not drive until seen by Dr. Beverly May shower after 48 hours Teaching drain care, drainage and recorded twice a day and as needed wear sena wrap at all times
== END 2023-06-22 14:30 | disposition home or self-care (01) ==
LOC: OR 06:46 → 4FBP 11:51 → OR 06-22 14:30
PROVIDERS: ATTEND Surgery
DX: C50.912 Malignant neoplasm of unspecified site of left female breast (principal); Z90.12 Acquired absence of left breast and nipple; Z98.42 Cataract extraction status, left eye; Z98.41 Cataract extraction status, right eye; Z90.710 Acquired absence of both cervix and uterus; Z98.890 Other specified postprocedural states
CPT/HCPCS: 19303; 38525; 88305; 80048; 85025; 88342; 88307; 88341; 38792; A9520; J2250; J0330; J0360; J1644 ×2; J1100; J0690; J2405; J2001; J3010; J2704

== ENCOUNTER → 2023-06-25 | Outpatient (CLI) | payer MEDICARE, OTHER ==
[2023-06-25 15:05] VITALS: BP 160/77; PULSE 71; RESP 18; TEMP 98
--- NOTE | 2023-06-25 15:11 | P.PN ---
Progress Note - Text Progress Note Date: 06/25/23 Valentine is an 78 year old status post left mastectomy on 06-21-22. Her pathology is pending. She is doing well postoperatively. Her DIEGO drain is still over 40 mL per 24-hour periods. Examination: Lungs: Clear Heart: Regular rate and rhythm DIEGO drain greater than 40 mL per 24-hour period serous in nature Incision: Clean and dry, no evidence of seroma Impression: Patient doing well at this time Plan: We pathology Follow-up one week for drain removal CC: Dr. Myers
== END ==
LOC: WWCWWP 14:53
PROVIDERS: ATTEND Surgery
DX: Z01.818 Encounter for other preprocedural examination (principal); Z90.12 Acquired absence of left breast and nipple; Z91.018 Allergy to other foods; Z91.048 Other nonmedicinal substance allergy status; Z87.891 Personal history of nicotine dependence; Z91.038 Other insect allergy status

== ENCOUNTER → 2023-07-06 | Outpatient (CLI) | payer MEDICARE, OTHER ==
--- NOTE | 2023-07-06 10:30 | P.PN ---
Progress Note - Text Progress Note Date: 07/06/23 Valentine is an 78 year old status post left mastectomy on 06-21-22. Her pathology revealed all margins were negative, however the tumor did penetrate the skin. One lymph node revealed isolated tumor cells. She is doing well postoperatively. Her DIEGO drain is minimal. Examination: Incision: Clean and dry, no evidence of infection or seroma Impression: Patient doing well at this time Plan: DC DIEGO drain Follow-up 4 months Follow-up medical oncology CC: Dr. Myers Additional CC's: Wilfredo Myers
== END ==
LOC: WWCWWP 10:08
PROVIDERS: ATTEND Surgery
DX: Z90.12 Acquired absence of left breast and nipple (principal); Z91.09 Other allergy status, other than to drugs and biological substances; Z87.891 Personal history of nicotine dependence; Z91.018 Allergy to other foods; Z91.038 Other insect allergy status

== ENCOUNTER → 2023-11-05 | Outpatient (CLI) | payer MEDICARE, OTHER ==
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
[2023-11-05 10:25] VITALS: BP 135/79; PULSE 70; RESP 18; TEMP 98
== END ==
LOC: WWCWWP 09:13
PROVIDERS: ATTEND Surgery
DX: C50.912 Malignant neoplasm of unspecified site of left female breast (principal); L98.8 Other specified disorders of the skin and subcutaneous tissue; Z17.0 Estrogen receptor positive status [ER+]; Z80.3 Family history of malignant neoplasm of breast; Z90.12 Acquired absence of left breast and nipple; Z91.018 Allergy to other foods; Z91.09 Other allergy status, other than to drugs and biological substances; Z91.038 Other insect allergy status; Z87.891 Personal history of nicotine dependence

== ENCOUNTER → 2024-04-03 | Outpatient (CLI) | payer MEDICARE, OTHER ==
--- NOTE | 2024-04-03 13:08 | MM ---
Reason for Exam: Hx of breast cancer, mastectomy. Last screening mammogram was performed 12 month(s) ago. Patient History: Menarche at age 10. First Full-Term at age 18. Hysterectomy at age 69. Postmenopausal. Breast cancer, left, age 78. 06/21/2023, Mastectomy on the Left side. 04/02/2023, US biopsy breast add'l VAD LT on the Left side. 04/02/2023, Malignant US biopsy breast VAD LT on the left side. Maternal aunt had breast cancer at or over age 50. Maternal aunt had breast cancer. Mother had breast cancer, age 51. Prior Study Comparison: 03/19/2023 Bilateral MG 3D diag mammo w/cad [facility], [facility]. 04/02/2023 Left MG diagnostic mammo LT wo CAD., [facility]. Tissue Density: Right: The breasts are heterogeneously dense, which may obscure small masses. Findings: Analyzed By CAD. Evidence for mass or distortion. Benign calcifications right breast. Overall Assessment: Benign, BI-RAD 2 Management: Diagnostic Mammogram of the right breast in 1 year. . Results were given to the patient verbally at the time of exam. Patient should continue monthly self-breast exams. A clinical breast exam by your physician is recommended on an annual basis. This exam should not preclude additional follow-up of suspicious palpable abnormalities. Note on [place] scores and lifetime risk: 1. A [place] score greater than 3% is considered moderate risk. If this is the case, consider specialist referral to assess eligibility for a risk reducing agent. 2. If overall lifetime risk for the development of breast cancer is 20% or higher, the patient may qualify for future screening with alternating mammogram and breast MRI. [facility], , 04/03/2024 1:05 PM. Electronically signed and approved by: Barney Rosario M.D. Radiologis
== END | disposition home or self-care (01) ==
LOC: RADMAMWWP 12:44
PROVIDERS: ATTEND Surgery
DX: Z85.3 Personal history of malignant neoplasm of breast
CPT/HCPCS: 77061; 77065

== ENCOUNTER → 2024-04-06 | Outpatient (CLI) | payer MEDICARE, OTHER ==
[2024-04-06 11:11] VITALS: BP 150/77; PULSE 75; RESP 17; TEMP 97.9
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
== END ==
LOC: WWCWWP 10:09
PROVIDERS: ATTEND Surgery
DX: Z48.817 Encounter for surgical aftercare following surgery on the skin and subcutaneous tissue (principal); Z85.3 Personal history of malignant neoplasm of breast; Z80.3 Family history of malignant neoplasm of breast; Z90.12 Acquired absence of left breast and nipple; Z91.018 Allergy to other foods; Z91.09 Other allergy status, other than to drugs and biological substances; Z91.038 Other insect allergy status; Z87.891 Personal history of nicotine dependence

== ENCOUNTER → 2024-05-19 | Outpatient (CLI) | payer MEDICARE, OTHER ==
--- NOTE | 2024-05-19 15:14 | XR ---
EXAMINATION TYPE: XR ribs LT w pa chest xray DATE OF EXAM: 05/19/2024 1:40 PM COMPARISON: None CLINICAL INDICATION: Female, 79 years old with history of R07.89 OTHER CHEST PAIN; [facility] TECHNIQUE: XR ribs LT w pa chest xray; Frontal and oblique views of the ribs with frontal chest radio graph. FINDINGS: The ribs have a normal appearance. No evidence of fracture. Overall, the lungs are clear. The cardiac silhouette is normal in size. The remaining osseous structures are intact. Flattening o f the diaphragms with increased lucency along apices. Costochondral calcinosis. IMPRESSION: No evidence for displaced rib fracture. [facility], , 05/19/2024 3:12 PM
== END | disposition home or self-care (01) ==
LOC: RADXRMAIN 13:20
PROVIDERS: ATTEND Family Medicine
DX: R07.89 Other chest pain (principal)

== ENCOUNTER → 2024-06-20 | Outpatient (CLI) | payer MEDICARE, OTHER ==
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
== END | disposition home or self-care (01) ==
LOC: RADNMMAIN 09:00
PROVIDERS: ATTEND Physical Medicine & Rehabilitation
DX: S22.050S Wedge compression fracture of T5-T6 vertebra, sequela (principal)
CPT/HCPCS: 78306; A9503

== ENCOUNTER 2024-08-21 12:10 | Inpatient (IN) | payer MEDICARE, OTHER ==
--- NOTE | 2024-08-21 12:35 | ED ---
General Adult HPI - General Source: patient, family Mode of arrival: ambulatory Limitations: no limitations <Franky Sommer - Last Filed: 08/21/24 12:34> - General Source: patient, family Mode of arrival: ambulatory Limitations: no limitations <Merlene Penn - Last Filed: 08/21/24 17:01> - General Chief complaint: Recheck/Abnormal Lab/Rx Stated complaint: Back pain,Weakness Time Seen by Provider: 08/21/24 12:34 - History of Present Illness Initial comments: 79-year-old female sent over by [facility]. Patient has a tumor on her spine, this has caused a T5 compression fracture. Patient is having an inability to ambulate. She was sent here for orthopedic consult. (Franky Sommer) This is an 79-year-old female who presents to the emergency department for back pain. Patient was diagnosed with breast cancer in 2022. States that she underwent treatment with a mastectomy. She started experiencing back pain in April and followed up with Dr. Dickerson, orthopedics. There was concern that there were lesions on her spine and she was advised to follow-up with Dr. Glaser. Family states that it took 5 weeks to get in with him and over that time symptoms have continued to get worse. Most recent imaging of the back was in July. She has continued to have increasing pain and weakness of the lower extremities and she has gotten to the point where she is barely able to function and take care of herself. During a follow-up at [facility] today she was advised to come here for urgent orthopedic evaluation. Denies any loss of bowel/bladder control or saddle anesthesia. (Merlene Penn) - Related Data Home Medications Medication Instructions Recorded Confirmed Ascorbic Acid [Vitamin C] 1,000 mg PO DAILY 08/21/24 08/21/24 Cholecalciferol (Vitamin D3) 50 mcg PO DAILY 08/21/24 08/21/24 [Vitamin D3 (50 Mcg = 2000 Iu)] Cyanocobalamin (Vitamin B-12) 1,000 mcg PO DAILY 08/21/24 08/21/24 [Vitamin B-12] Lutein 20 mg PO DAILY 08/21/24 08/21/24 Vitamin E (Dl,Tocopheryl Acet) 400 unit PO DAILY 08/21/24 08/21/24 [Vitamin E (400 Iu = 180 mg)] oxyCODONE-APAP 5-325MG [Percocet 1 tab PO Q4H PRN 08/21/24 08/21/24 5-325 mg] Allergies Allergy/AdvReac Type Severity Reaction Status Date / Time apple Allergy Swelling Verified 08/21/24 15:25 mold Allergy Swelling Verified 08/21/24 15:25 INSECTICIDES Allergy Anaphylaxis Uncoded 08/21/24 15:25 Review of Systems ROS Other: All systems not noted in ROS Statement are negative. <Franky Sommer - Last Filed: 08/21/24 12:34> ROS Other: All systems not noted in ROS Statement are negative. <Merlene Penn - Last Filed: 08/21/24 17:01> ROS Statement: Those systems with pertinent positive or pertinent negative responses have been documented in the HPI. Past Medical History Past Medical History: Cancer Additional Past Medical History / Comment(s): HX ANEMIA. bladder PROLAPSE, some urgency and leakage. left breast cancer History of Any Multi-Drug Resistant Organisms: None Reported Past Surgical History: Adenoidectomy, Hysterectomy, Tonsillectomy Additional Past Surgical History / Comment(s): BILAT CATARACTS REMOVED. DENTAL SX Past Anesthesia/Blood Transfusion Reactions: No Reported Reaction Past Psychological History: No Psychological Hx Reported Smoking Status: Former smoker Past Alcohol Use History: Rare Past Drug Use History: None Reported - Past Family History Mother Family Medical History: Cancer Sister(s) Family Medical History: Cancer <Franky Sommer - Last Filed: 08/21/24 12:34> General Exam Limitations: no limitations <Franky Sommer - Last Filed: 08/21/24 12:34> Limitations: no limitations General appearance: alert, in no apparent distress Head exam: Present: atraumatic, normocephalic, normal inspection Respiratory exam: Present: normal lung sounds bilaterally. Absent: respiratory distress, wheezes, rales, rhonchi, stridor Cardiovascular Exam: Present: regular rate, normal rhythm Neurological exam: Present: alert, oriented X3, CN II-XII intact Psychiatric exam: Present: normal affect, normal mood Skin exam: Present: warm, dry, intact, normal color. Absent: rash <Merlene Penn - Last Filed: 08/21/24 17:01> - General Exam Comments Initial Comments: Visual Physical Exam Vital signs reviewed General: Well-appearing, nontoxic, no acute distress. Head: Normocephalic, atraumatic Eyes: PERRLA, EOMI ENT: Airway patent Chest: Nonlabored breathing Skin: No visual rash, normal skin tone Neuro: Alert and oriented 3 Musculoskeletal: No gross abnormalities (Franky Sommer) Course Vital Signs 08/21/24 12:29 Temperature 97.6 F Pulse Rate 70 Respiratory 20 Rate Blood Pressure 152/80 O2 Sat by Pulse 98 Oximetry Medical Decision Making <Franky Sommer - Last Filed: 08/21/24 12:34> - Lab Data Result diagrams: 08/21/24 13:19 08/21/24 13:19 - Radiology Data Radiology results: report reviewed, image reviewed <Merlene Penn - Last Filed: 08/21/24 17:01> - Medical Decision Making I performed the quick note portion of this visit, electronically signed Franky Sommer PA-C (Franky Sommer) This is an 79-year-old female who presents to the emergency department for back pain. Was pt. sent in by a medical professional or institution? @ -Sue Did you speak to anyone other than the patient for history? @ -Family provided the majority of the history. Did you review nursing and triage notes? @ -Yes, and I agree, it is accurate with regards to the patient's symptoms. Were old charts reviewed? @ -No Differential Diagnosis? @ -Differential Back Pain: Strain, zoster, cauda equina syndrome, epidural abscess, vertebral osteomyelitis, discitis, fracture, subluxation, disc herniation, DJD, spinal stenosis, dissection, AAA, pancreatitis, peptic ulcer disease, pyelonephritis, kidney stone, this is not meant to be an all-inclusive list. EKG interpreted by me (3pts min.)? @ -Not obtained X-rays interpreted by me (1pt min.)? @ -Not obtained CT interpreted by me (1pt min.)? @ -Not obtained U/S interpreted by me (1pt. min.)? @ -Not obtained What testing was considered but not performed? (CT, X-rays, U/S, labs)? Why? @ -None What meds were considered but not given? Why? @ -None Did you discuss the management of the patient with other professionals? @ -Yes, Janie with hem/onc, who advised that Dr. Glaser and Dr. Navas consulted with Dr. Lora regarding the patient and she will put in the appropriate imaging. Dr. Means accepts the patient for admission. Did you reconcile home meds? @ -No Was smoking cessation discussed for >3mins.? @ -No Was critical care preformed (if so, how long)? @ -No Were there social determinants of health that impacted care today? How? (Homelessness, low income, unemployed, alcoholism, drug addiction, transportation, low edu. Level, literacy, decrease access to med. care, intermediate, rehab)? @ -No Was there de-escalation of care discussed even if they declined? (Discuss DNR or withdrawal of care, Hospice)? @ -No What co-morbidities impacted this encounter? (DM, HTN, Smoking, COPD, CAD, Cancer, CVA, Hep., AIDS, mental health diagnosis, sleep apnea, morbid obesity)? @ -Cancer Was patient admitted / discharged? @ -Admitted. Patient was sent over from hem/onc for orthopedic evaluation due to concern of spinal cord compression from metastatic lesions based on the progressive weakness in her lower extremities. Case discussed with Janie Dobson, who advised that Dr. Glasre and Dr. Navas had consulted with Dr. Lora regarding the patient. She ordered the requested MRIs and CT scans. Patient admitted to medicine for further care with orthopedics and hem/onc, who were both listed as consult. Baseline laboratory studies were ordered at the time of admission. Case discussed with ED attending Dr. House. Undiagnosed new problem with uncertain prognosis? @ -None Drug Therapy requiring intensive monitoring for toxicity (Heparin, Nitro, Insulin, Cardizem)? @ -None Were any procedures done? @ -None Diagnosis/symptom? @ -Metastatic cancer to spine, lower extremity weakness Acute, or Chronic, or Acute on Chronic? @ -Acute Uncomplicated (without systemic symptoms) or Complicated (systemic symptoms)? @ -Complicated Side effects of treatment? @ -None Exacerbation, Progression, or Severe Exacerbation] @ -Not applicable Poses a threat to life or bodily function? @ -Yes, can lead to permanent loss of function. (Merlene Penn) - Lab Data Lab Results 08/21/24 08/21/24 Range/Units 13:19 13:19 WBC 7.6 (3.8-10.6) k/uL RBC 4.97 (3.80-5.40) m/uL Hgb 14.8 (11.4-16.0) gm/dL Hct 44.6 (34.0-46.0) % MCV 89.6 (80.0-100.0) fL MCH 29.7 (25.0-35.0) pg MCHC 33.2 (31.0-37.0) g/dL RDW 13.3 (11.5-15.5) % Plt Count 226 (150-450) k/uL MPV 8.0 Neutrophils % 68 % Lymphocytes % 23 % Monocytes % 6 % Eosinophils % 1 % Basophils % 1 % Neutrophils # 5.2 (1.3-7.7) k/uL Lymphocytes # 1.7 (1.0-4.8) k/uL Monocytes # 0.4 (0-1.0) k/uL Eosinophils # 0.1 (0-0.7) k/uL Basophils # 0.0 (0-0.2) k/uL Sodium 137 (137-145) mmol/L Potassium 3.8 (3.5-5.1) mmol/L Chloride 97 L (98-107) mmol/L Carbon Dioxide 27 (22-30) mmol/L Anion Gap 13 mmol/L BUN 14 (7-17) mg/dL Creatinine 0.78 (0.52-1.04) mg/dL Est GFR (CKD-EPI)AfAm 83 (>60 ml/min/1.73 sqM) Est GFR (CKD-EPI)NonAf 72 (>60 ml/min/1.73 sqM) Glucose 95 (74-99) mg/dL Calcium 10.7 H (8.4-10.2) mg/dL Total Bilirubin 1.1 (0.2-1.3) mg/dL AST 47 H (14-36) U/L ALT 24 (4-34) U/L Alkaline Phosphatase 191 H (38-126) U/L Total Protein 7.8 (6.3-8.2) g/dL Albumin 4.7 (3.5-5.0) g/dL Disposition <Franky Sommer - Last Filed: 08/21/24 12:34> <Merlene Penn - Last Filed: 08/21/24 17:01> Clinical Impression: Metastatic cancer to spine, Lower extremity weakness Disposition: ADMITTED IP TO THIS HOSP
[2024-08-21] MEDS: SODIUM CHLORIDE 0.9% 500 ML 500 ML IV STA (13:13)
[2024-08-21] MEDS: ONDANSETRON 4 MG/2 ML VIAL IVP STA (13:14)
[2024-08-21] MEDS: HYDROmorphone 0.5 MG/0.5 ML SYRINGE IVP STA (13:15)
[2024-08-21 13:36] LABS: Basophils % (A) 1 %; Eosinophils # (A) 0.1 k/uL (0-0.7); Eosinophils % (A) 1 %; HCT 44.6 % (34.0-46.0); HGB 14.8 gm/dL (11.4-16.0); Lymphocytes # (A) 1.7 k/uL (1.0-4.8); Lymphocytes % (A) 23 %; MCH 29.7 pg (25.0-35.0); MCHC 33.2 g/dL (31.0-37.0); MCV 89.6 fL (80.0-100.0); Monocytes # (A) 0.4 k/uL (0-1.0); Monocytes % (A) 6 %; Neutrophils # (A) 5.2 k/uL (1.3-7.7); Neutrophils % (A) 68 %; Platelet Count 226 k/uL (150-450); RBC 4.97 m/uL (3.80-5.40); RDW 13.3 % (11.5-15.5); WBC 7.6 k/uL (3.8-10.6)
[2024-08-21] MEDS ORDERED: ACETAMINOPHEN TAB 325 MG TAB PO PRN (14:19)
[2024-08-21] MEDS ORDERED: ONDANSETRON 4 MG/2 ML VIAL IVP PRN (14:19)
[2024-08-21] MEDS ORDERED: NALOXONE 0.4 MG/ML 1 ML VIAL IV PRN (14:19)
[2024-08-21] MEDS: DEXAMETHASONE SOD PHOSPHATE 4 MG/ML 1 ML VIAL IVP SCH ×2 (14:48→21:02)
[2024-08-21] MEDS: HYDROmorphone 1 MG/ML 1 ML SYRINGE IVP PRN (14:49)
--- NOTE | 2024-08-21 14:53 | CT ---
EXAMINATION TYPE: CT CervThoracic spine wo con DATE OF EXAM: 08/21/2024 2:34 PM COMPARISON: None. CLINICAL INDICATION: Female, 79 years old with history of pain, numbness in arms; pain, numbness in a libertad. poss fx and mets? TECHNIQUE: Axial CT images from the skull base to the inferior aspect of T2 we obtained without intra venous contrast. Coronal and sagittal reformatted images were also reviewed. Contrast used: mL of , (if blank None) Oral contrast used: (if blank None) CT DLP: 785.9 mGycm, Automated exposure control for dose reduction was used. FINDINGS: Fracture: None. Osseous structures: There is lytic lesion in the T6 vertebral body with erosion of the posterior endp late of T6 vertebral body. Additionally the T5 vertebral body demonstrates diffuse sclerosis with com pression fracture with up to 50% height loss. The T4 vertebral body also demonstrates soft tissue mas s in the posterior elements. There is diffuse abnormal appearance of the T5 vertebrae. There is incre ased kyphotic alignment of the upper thoracic spine likely due to compression fracture. The lumbar sp ine spine and cervical spine appear within normal limits for alignment. There is multilevel degenerat ion changes left bifurcation disc space narrowing and facet joint arthropathy. 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 Heterogenous thyroid gland tameka aterally. IMPRESSION: Evidence of metastatic disease in the spine at T4 and T6 and possibly at T5. T5 vertebral body fractu re possibly pathologic. Further evaluation with MRI with IV contrast recommended to evaluate spinal c anal stenosis from soft tissue mass.. [facility], , 08/21/2024 2:51 PM
[2024-08-21 15:00] LABS: ALT 24 U/L (4-34); AST 47 U/L (14-36); African American GFR (CKD) 83 (>60 ml/min/1.73 sqM); Albumin 4.7 g/dL (3.5-5.0); Alkaline Phosphatase 191 U/L (38-126); Blood Urea Nitrogen 14 mg/dL (7-17); Glucose 95 mg/dL (74-99); Non-African American GFR(CKD) 72 (>60 ml/min/1.73 sqM); Total Bilirubin 1.1 mg/dL (0.2-1.3); Total Protein 7.8 g/dL (6.3-8.2)
[2024-08-21] MEDS: KETOROLAC 15 MG/ML 1 ML VIAL IVP PRN (15:44)
[2024-08-21] MEDS ORDERED: DEXTROSE 50% SYRINGE 50 ML IVP PRN ×2 (15:46)
[2024-08-21 16:06] LABS: Anion Gap 13 mmol/L; Calcium 10.7 mg/dL (8.4-10.2); Carbon Dioxide 27 mmol/L (22-30); Chloride 97 mmol/L (98-107); Potassium 3.8 mmol/L (3.5-5.1); Sodium 137 mmol/L (137-145)
[2024-08-21] MEDS: DEXAMETHASONE SOD PHOSPHATE 10 MG/ML 1 ML VIAL IVP ONE (16:27)
[2024-08-21] MEDS: PANTOPRAZOLE 40 MG TABLET PO SCH (17:13)
[2024-08-21] MEDS: INSULIN ASPART (NovoLOG) 100 UNIT/ML VIAL SQ SCH (17:26)
[2024-08-21 18:07] LABS: Glucose,Whole Blood 183 mg/dL (70-110)
[2024-08-21 19:50] LABS: Glucose,Whole Blood 246 mg/dL (70-110)
--- NOTE | 2024-08-21 21:03 | P.HPIM ---
History of Present Illness This is a pleasant 79 years old female who presents because of back pain and suspicious for metastatic disease to the spine sent by her oncologist Dr. Glaser. Patient states that her problem started on April 20, 2024 when she was doing some heavy work like picking up the trailer she started having pain about her left shoulder blade, which was gradually getting worse over the next 2 weeks it progressed to the front of the chest and below her left breast where she had mastectomy from previous breast cancer before. She follow-up with her PCP, x- ray was unremarkable for her spine, she was referred to orthopedic team where she had bone scan and after referral to her oncologist Dr. Glaser she had MRI with contrast done about 3 weeks ago, she received a call from Dr. Glaser directed her to the emergency room just prior to hospitalization Patient complains from back pain 10/10 in the upper back radiating across the left to her front chest Complains from weakness in her both lower extremities but states this symmetrical from the knee down for 1.5 weeks with mild paresthesia and tingling on the side of both feet started yesterday She denies saddle paresthesia, she denies urine or bowel incontinence She denies any other specific GI/ symptoms no headache dizziness weakness numbness other than above no chest pain or dyspnea She denies smoking alcohol or illicit drugs As per signout I received from ED service, Dr. Lora team was contacted and he recommended to a admit patient under medical service was put the orthopedic team on consult. Orthopedic team already aware of the patient on admission Patient afebrile Labs unremarkable CBC, BMP, LFT CT of the cervical and thoracic spine showing metastatic disease to T4 and T6 with possible metastasis and pathological fracture of T5 Review of Systems Review of systems CONSTITUTIONAL: No fever, no malaise, no fatigue. HEENT: No recent visual problems or hearing problems. Denied any sore throat. CARDIOVASCULAR: No orthopnea, PND, no palpitations, no syncope. PULMONARY: No shortness of breath, no cough, no hemoptysis. GASTROINTESTINAL: No diarrhea, no nausea, no vomiting, no abdominal pain. Normoactive bowel sounds. NEUROLOGICAL: No headaches, no weakness, no numbness. HEMATOLOGICAL: Denies any bleeding or petechiae. GENITOURINARY: Denies any burning micturition, frequency, or urgency. MUSCULOSKELETAL/RHEUMATOLOGICAL: Denies any joint pain, swelling, or any muscle pain. ENDOCRINE: Denies any polyuria or polydipsia. Past Medical History Past Medical History: Cancer Additional Past Medical History / Comment(s): HX ANEMIA. bladder PROLAPSE, some urgency and leakage. left breast cancer History of Any Multi-Drug Resistant Organisms: None Reported Past Surgical History: Adenoidectomy, Hysterectomy, Tonsillectomy Additional Past Surgical History / Comment(s): BILAT CATARACTS REMOVED. DENTAL SX Past Anesthesia/Blood Transfusion Reactions: No Reported Reaction Past Psychological History: No Psychological Hx Reported Smoking Status: Former smoker Past Alcohol Use History: Rare Past Drug Use History: None Reported - Past Family History Mother Family Medical History: Cancer Sister(s) Family Medical History: Cancer Medications and Allergies Home Medications Medication Instructions Recorded Confirmed Type Ascorbic Acid [Vitamin C] 1,000 mg PO DAILY 08/21/24 08/21/24 History Cholecalciferol (Vitamin D3) 50 mcg PO DAILY 08/21/24 08/21/24 History [Vitamin D3 (50 Mcg = 2000 Iu)] Cyanocobalamin (Vitamin B-12) 1,000 mcg PO DAILY 08/21/24 08/21/24 History [Vitamin B-12] RX: Lutein 20 mg PO DAILY 08/21/24 08/21/24 History Vitamin E (Dl,Tocopheryl Acet) 400 unit PO DAILY 08/21/24 08/21/24 History [Vitamin E (400 Iu = 180 mg)] oxyCODONE-APAP 5-325MG [Percocet 1 tab PO Q4H PRN 08/21/24 08/21/24 History 5-325 mg] Allergies Allergy/AdvReac Type Severity Reaction Status Date / Time apple Allergy Swelling Verified 08/21/24 15:25 mold Allergy Swelling Verified 08/21/24 15:25 INSECTICIDES Allergy Anaphylaxis Uncoded 08/21/24 15:25 Physical Exam Vitals: Vital Signs Temp Pulse Resp BP Pulse Ox 08/21/24 12:29 97.6 F 70 20 152/80 98 Intake and Output 08/21/24 08/21/24 08/21/24 06:59 14:59 22:59 Other: Weight 158.2 kg GENERAL: The patient is alert and oriented x3, not in any acute distress. Well developed, well nourished. HEENT: Pupils are round and equally reacting to light. EOMI. No scleral icterus. No conjunctival pallor. Normocephalic, atraumatic. No pharyngeal erythema. No thyromegaly. CARDIOVASCULAR: S1 and S2 present. No murmurs, rubs, or gallops. PULMONARY: Chest is clear to auscultation, no wheezing , no crackles. ABDOMEN: Soft, nontender, nondistended, normoactive bowel sounds. No palpable organomegaly. MUSCULOSKELETAL: No joint swelling or deformity. EXTREMITIES: No cyanosis, clubbing, or pedal edema. NEUROLOGICAL: Gross neurological examination did not reveal any focal deficits. SKIN: No rashes. no petechiae. Results CBC & Chem 7: 08/21/24 13:19 08/21/24 13:19 Labs: Abnormal Lab Results - Last 24 Hours (Table) 08/21/24 Range/Units 13:19 AST 47 H (14-36) U/L Alkaline Phosphatase 191 H (38-126) U/L Assessment and Plan 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, T4-T6 with possible pathological fracture of T5 causing radicular pain of her upper back across to the front chest from the left side History of breast cancer status postmastectomy Bilateral lower extremity weakness and numbness could be related to above however there is no lateralization Plan: Start the patient on dexamethasone 4 mg every 6 hours Orthopedic team consult Hematology/oncology team consult Resume home medication Pain management Further recommendation based on the clinical course DVT prophylaxis: Mechanical GI prophylaxis m Protonix Prognosis is guarded
[2024-08-22 07:57] LABS: Glucose,Whole Blood 130 mg/dL (70-110)
[2024-08-22] MEDS: CHOLECALCIFEROL 25 MCG (1000 IU) TABLET PO SCH (08:05)
[2024-08-22] MEDS: CYANOCOBALAMIN 500 MCG TAB PO SCH (08:05)
[2024-08-22] MEDS: VITAMIN E (DL,TOCOPHERYL ACET) 400 UNIT (180 MG) CAP PO SCH (08:05)
[2024-08-22] MEDS: ASCORBIC ACID 500 MG TAB PO SCH (08:05)
[2024-08-22] MEDS ORDERED: NON FORMULARY DRUG (Lutein [Lutein] 20 MG Capsule) PO SCH (09:00)
--- NOTE | 2024-08-22 09:34 | P.CNOR ---
History of Present Illness - [facility] Consult date: 08/22/24 Consult reason: fracture History of present illness: 79 yo female presents from oncology and rad onc due to pain in the back as well as leg weakness and "heaviness". She states back in April she was lifting some thing with her son and son in law and she felt a sharp pain in her upper back. She says since then she seems to have had issues with her back. She has hx of BCA treated, but she was hazy on the details. She states she has pain and numbness/tingling in her legs from the shins to the feet b/l. She states she has no arm pain or weakness. She states her legs feel heavy and just different. She has seen PMR and [facility] She states from there she was bounced around and was unsure of what the diagnosis was. She denies any bowel or bladder issues. States no perineal numbness/tingling at this time. Review of Systems 16 POINT ROS COMPLETED AND STATED IN HPI, ALL OTHER SYSTEMS REVIEWED NEGATIVE. Past Medical History Past Medical History: Cancer Additional Past Medical History / Comment(s): HX ANEMIA. bladder PROLAPSE, some urgency and leakage. left breast cancer History of Any Multi-Drug Resistant Organisms: None Reported Past Surgical History: Adenoidectomy, Hysterectomy, Tonsillectomy Additional Past Surgical History / Comment(s): BILAT CATARACTS REMOVED. DENTAL SX Past Anesthesia/Blood Transfusion Reactions: No Reported Reaction Past Psychological History: No Psychological Hx Reported Smoking Status: Former smoker Past Alcohol Use History: Rare Past Drug Use History: None Reported - Past Family History Mother Family Medical History: Cancer Sister(s) Family Medical History: Cancer Medications and Allergies Home Medications Medication Instructions Recorded Confirmed Type Ascorbic Acid [Vitamin C] 1,000 mg PO DAILY 08/21/24 08/21/24 History Cholecalciferol (Vitamin D3) 50 mcg PO DAILY 08/21/24 08/21/24 History [Vitamin D3 (50 Mcg = 2000 Iu)] Cyanocobalamin (Vitamin B-12) 1,000 mcg PO DAILY 08/21/24 08/21/24 History [Vitamin B-12] Lutein 20 mg PO DAILY 08/21/24 08/21/24 History Vitamin E (Dl,Tocopheryl Acet) 400 unit PO DAILY 08/21/24 08/21/24 History [Vitamin E (400 Iu = 180 mg)] oxyCODONE-APAP 5-325MG [Percocet 1 tab PO Q4H PRN 08/21/24 08/21/24 History 5-325 mg] Allergies Allergy/AdvReac Type Severity Reaction Status Date / Time apple Allergy Swelling Verified 08/21/24 15:25 mold Allergy Swelling Verified 08/21/24 15:25 INSECTICIDES Allergy Anaphylaxis Uncoded 08/21/24 15:25 Physical Examination Osteopathic Statement: *. No significant issues noted on an osteopathic stru ctural exam other than those noted in the History and Physical/Consult. PHYSICAL EXAM: General: AOX3, NAD, Well hydrate, Well nourished HEENT: No lumps or masses Extremities: No color changes, no pooling INTEGUMENT: Appearance: Normal color and turgor Surgical Incisions: NA Hairy Patches: ABSENT Dorsal Skin Dimples: Normal [employer] spots: ABSENT PALPATION: (TTP) Midline: YES Paracervical: NO Parathoracic: YES Paralumbar: YES SIJ TESTING: Not Tested POSTURAL BALANCE: -Coronal: BALANCED -Sagittal: BALANCED -Shoulder height: LEVEL -Pelvic Girdle: LEVEL ROM AND APPEARANCE: Neck: UNRESTRICTED Lumbar: RESTRICTED Shoulders: Symmetrical Hips: Symmetrical Knees: Symmetrical Hands: Symmetrical Feet: Symmetrical VASCULAR STATUS: RUE- 2 LUE-2 RLE-2 LLE-2 Edema: NONE NEUROLOGICAL EXAMINATION: Mental Status: Awake, alert, oriented fully with normal attention, concentration and memory. Fluent appropriate speech. CRANIAL NERVES: I: Olfactory not tested. II: Visual acuity normal, no visual field deficit noted with confrontation. III,IV: Normal pupillary reflexes & intact extraocular movements without nystagmus. V,: Intact symmetrical facial sensation. VII: Intact symmetrical facial motor movementVIII: Hearing intact. IX,X: Intact gag, swallow, & normal voice. XI: Sternocleidomastoid, trapezius function intact. XII: Tongue midline with normal movements. TENSIONING: L'HERMITTE'S SIGN: NEGATIVE SPURLING'S SIGN: NEGATIVE CUBITAL COMPRESSION: NEGATIVE TINEL'S AT WRIST: NEGATIVE SLR:POSITIVE BILATERAL CROSSED SLR: NEGATIVE MOTOR EXAM (0-5/5, NT) Muscle appearance: * Symmetrical, without signs of atrophy or dystrophy UPPER EXTREMITY RIGHT LEFT SHOULDER ABDUCTION 5 5 BICEP 5 5 TRICEP 5 5 WRIST EXTENSION 5 5 INTRINSICS 5 5 BOOKING SUPERVISOR 5 5 LOWER EXTREMITY HIP FLEXION 4 4 KNEE FLEXION 4 4 KNEE EXTENSION 4 4 DORSIFLEXION 5 5 PLANTAR FLEXION 5 5 EHL 5 5 FHL 5 5 REFLEXES (0-4/2, NT): RIGHT LEFT BICEP 2 2 TRICEP 2 2 BRACHIORADIALIS 2 2 PATELLAR 1 1 ACHILLES 1 1 PATHOLOGICAL REFLEXES: RIGHT LEFT HOFFMANS ABSENT ABSENT CLONUS ABSENT ABSENT BABINSKI ABSENT ABSENT Rectal Tone: INTACT SENSATION (0-4, NT): Intact to light touch and pain sensation to C5-T1 as well as L2-S2 except that noted below Hyperesthesia: PRESENT Dermatomal deficit: YES Levels: L5-S1 BILATERAL GAIT AND FUNCTIONAL EVALUATION: -Ambulatory aids NO -Rombergs test NEGATIVE -Hand and finger dexterity intact bilaterally? YES -Dysdiadochokinesia examination negative bilaterally? YES -Toe heel walk / heel-toe walk intact while maintaining satisfactory balance? YES -Squatting/straightening w/o assistance to a min of 60 degree knee flexion? NO -Single leg stance: NOT ABLE -Trendelenburg sign NT Results CT SCAN OF T AND L SPINE REVIEWED. THIS DEMONSTRATES T5 PATHOLOGICAL FRACTURE WITH T4, T5, T6, AND T7 TUMOR BURDEN. DIFFICULT TO TELL HOW COMPRESSIVE THIS MAY BE AND MRI W/WO IS WARRENTED OF THE C/T/L SPINE AT THIS TIME. NO OTHER FRACTURES IDENTIFIED. SEVERE KYPHOTIC DEFORMITY RELATED TO AGE AND FRACTURE PATHOLOGY. - Labs Labs: Abnormal Lab Results - Last 24 Hours (Table) 08/21/24 08/21/24 08/21/24 Range/Units 13:19 18:06 19:48 Chloride 97 L (98-107) mmol/L POC Glucose (mg/dL) 183 H 246 H (70-110) mg/dL Calcium 10.7 H (8.4-10.2) mg/dL AST 47 H (14-36) U/L Alkaline Phosphatase 191 H (38-126) U/L 08/22/24 Range/Units 07:55 Chloride (98-107) mmol/L POC Glucose (mg/dL) 130 H (70-110) mg/dL Calcium (8.4-10.2) mg/dL AST (14-36) U/L Alkaline Phosphatase (38-126) U/L H & H 08/21/24 Range/Units 13:19 Hgb 14.8 (11.4-16.0) gm/dL Hct 44.6 (34.0-46.0) % Result Diagrams: 08/21/24 13:19 08/21/24 13:19 Assessment and Plan (1) Pathological fracture of cervical vertebra due to neoplastic disease Current Visit: Yes Status: Acute Code(s): M84.58XA - PATHOLOGICAL FRACTURE IN NEOPLASTIC DISEASE, OTH SITE, INIT SNOMED Code(s): 32524573789265042 (2) Radiculopathy with lower extremity symptoms Current Visit: Yes Status: Acute Code(s): M54.10 - RADICULOPATHY, SITE UNSPECIFIED SNOMED Code(s): 61664353 (3) Lower extremity weakness Current Visit: Yes Status: Acute Code(s): R29.898 - OT SYMPTOMS AND SIGNS INVOLVING THE MUSCULOSKELETAL SYSTEM SNOMED Code(s): 419291943 (4) Metastatic cancer to spine Current Visit: Yes Status: Acute Code(s): C79.51 - SECONDARY MALIGNANT NEOPLASM OF BONE SNOMED Code(s): 53715292 Plan: -MRI OF THE SPINE TODAY 2:45 PM -CONT STEROIDS -AMBULATE ABLE -PAIN CONTROL NEEDED -FURTHER RECS ONCE MRI COMPLETED.
--- NOTE | 2024-08-22 10:55 | P.PN ---
Subjective This is a pleasant 79 years old female who presents because of back pain and suspicious for metastatic disease to the spine sent by her oncologist Dr. Glaser. Patient states that her problem started on April 20, 2024 when she was doing some heavy work like picking up the trailer she started having pain about her left shoulder blade, which was gradually getting worse over the next 2 weeks it progressed to the front of the chest and below her left breast where she had mastectomy from previous breast cancer before. She follow-up with her PCP, x- ray was unremarkable for her spine, she was referred to orthopedic team where she had bone scan and after referral to her oncologist Dr. Glaser she had MRI with contrast done about 3 weeks ago, she received a call from Dr. Glaser directed her to the emergency room just prior to hospitalization Patient complains from back pain 10/10 in the upper back radiating across the left to her front chest Complains from weakness in her both lower extremities but states this symmetrical from the knee down for 1.5 weeks with mild paresthesia and tingling on the side of both feet started yesterday She denies saddle paresthesia, she denies urine or bowel incontinence She denies any other specific GI/ symptoms no headache dizziness weakness numbness other than above no chest pain or dyspnea She denies smoking alcohol or illicit drugs As per signout I received from ED service, Dr. Lora team was contacted and he recommended to a admit patient under medical service was put the orthopedic team on consult. Orthopedic team already aware of the patient on admission Patient afebrile Labs unremarkable CBC, BMP, LFT CT of the cervical and thoracic spine showing metastatic disease to T4 and T6 with possible metastasis and pathological fracture of T5 08/22 Patient pains feels better 1/10 in her upper back which is radiating to the left breast area at the site of her previous mastectomy MRI of the cervical and thoracic spine is pending She remains on dexamethasone She remains on pain medication Family at bedside and all questions answered Objective - Vital Signs Vital signs: Vital Signs Temp 97.6 F 08/22/24 08:00 Pulse 61 08/22/24 08:00 Resp 16 08/22/24 08:00 BP 114/60 08/22/24 08:00 Pulse Ox 94 L 08/22/24 08:00 FiO2 Intake & Output 08/21/24 08/22/24 08/22/24 18:59 06:59 18:59 Weight 158.2 kg Other: # Voids 1 1 # Bowel Movements 1 - Exam GENERAL: The patient is alert and oriented x3, not in any acute distress. Well developed, well nourished. HEENT: Pupils are round and equally reacting to light. EOMI. No scleral icterus. No conjunctival pallor. Normocephalic, atraumatic. No pharyngeal erythema. No thyromegaly. CARDIOVASCULAR: S1 and S2 present. No murmurs, rubs, or gallops. PULMONARY: Chest is clear to auscultation, no wheezing , no crackles. ABDOMEN: Soft, nontender, nondistended, normoactive bowel sounds. No palpable organomegaly. MUSCULOSKELETAL: No joint swelling or deformity. EXTREMITIES: No cyanosis, clubbing, or pedal edema. NEUROLOGICAL: Gross neurological examination did not reveal any focal deficits. SKIN: No rashes. no petechiae. - Labs CBC & Chem 7: 08/21/24 13:19 08/21/24 13:19 Labs: Abnormal Lab Results - Last 24 Hours (Table) 08/21/24 08/21/24 08/21/24 Range/Units 13:19 18:06 19:48 Chloride 97 L (98-107) mmol/L POC Glucose (mg/dL) 183 H 246 H (70-110) mg/dL Calcium 10.7 H (8.4-10.2) mg/dL AST 47 H (14-36) U/L Alkaline Phosphatase 191 H (38-126) U/L 08/22/24 Range/Units 07:55 Chloride (98-107) mmol/L POC Glucose (mg/dL) 130 H (70-110) mg/dL Calcium (8.4-10.2) mg/dL AST (14-36) U/L Alkaline Phosphatase (38-126) U/L Assessment and Plan 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, T4-T6 with possible pathological fracture of T5 causing radicular pain of her upper back across to the front chest from the left side History of breast cancer status postmastectomy Bilateral lower extremity weakness and numbness could be related to above however there is no lateralization Plan: Follow-up MRI of the cervical thoracic spine Start the patient on dexamethasone 4 mg every 6 hours Orthopedic team consult Hematology/oncology team consult Resume home medication Pain management Further recommendation based on the clinical course DVT prophylaxis: Mechanical GI prophylaxis m Protonix Prognosis is guarded
[2024-08-22] MEDS: oxyCODONE-APAP 5-325MG 1 EACH TAB PO PRN (10:59)
[2024-08-22 12:24] LABS: Glucose,Whole Blood 136 mg/dL (70-110)
--- NOTE | 2024-08-22 15:20 | P.CONS ---
History of Present Illness - Reason for Consult Consult date: 08/22/24 metastatic breast cancer Requesting physician: Merlene Penn - Chief Complaint back pain, difficulty walking - History of Present Illness Ms. Umana is a female pt initially seen by Dr. Crowell for breast carcinoma. Pt noted a lump in her left breast about a year prior to her pathologic diagnosis. She states that she sought attention, as it appeared to be getting closer to the skin, and she was concerned that it was growing through. She had a mammogram on 03/19/23, that showed a spiculated mass in the upper outer quadrant of the left breast measuring 3.7 x 2.8 cm about 7 cm from the nipple. Ultrasound confirmed a 3.3 x 2.8 x 2.9 cm suspicious mass, with a normal size node in the left axilla with a mildly thickened cortex. Core biopsy of the breast mass, and the lymph node 04/02/23 revealed IDC, grade 2 with the lymph node biopsy being negative for malignancy. ER + 91-100%, SD + 1-10%. HER-2 was 1+, negative. Ki-67 was greater than 20%. Oncotype showed > 15% benefit from chemotherapy. PET was negative, including in the axilla. Breast Next testing was negative. Given the Oncotype score, and her good performance status, neoadjuvant chemotherapy was recommended. However, pt stated she did not want chemotherapy, with full understanding of the risk versus benefit. She was therefore advised to proceed with surgery as soon as possible. She had mastectomy with sentinel node biopsy on 06/21/23. This showed grade 3 invasive ductal carcinoma, 4 cm, with asso ciated high-grade DCIS. Margins were negative. 3 lymph nodes were negative. There was focal invasion into the dermis with skin ulceration. She declined endocrine therapy and adjuvant radiation as directed by Dr. Crowell. She was contacted about MRI of the T spine, done by [facility], with results faxed to our office, that showed pathologic compression fracture at T5 with bony retropulsion causing mild to moderate cord compression with evidence of epidural disease,and numerous osseous lesions. She told staff that she did not want to be seen. She then inquired about seeing Dr. Glaser, which she did on 08/21. She reported progressive back pain, bilateral shoulder pain, which has been going on for few weeks, percocets not working as well. Reports swelling in the legs, weakness in the legs, hard to get around. Dr. Glaser spoke to Dr. Lora and Dr. Navas. Pt has been admitted, pain meds adjusted, dexamethasone started. She is doing a little better today. Review of Systems 14 point ROS is neg except as stated in HPI Past Medical History Past Medical History: Cancer Additional Past Medical History / Comment(s): HX ANEMIA. bladder PROLAPSE, some urgency and leakage. left breast cancer History of Any Multi-Drug Resistant Organisms: None Reported Past Surgical History: Adenoidectomy, Hysterectomy, Tonsillectomy Additional Past Surgical History / Comment(s): BILAT CATARACTS REMOVED. DENTAL SX Past Anesthesia/Blood Transfusion Reactions: No Reported Reaction Past Psychological History: No Psychological Hx Reported Smoking Status: Former smoker Past Alcohol Use History: Rare Past Drug Use History: None Reported - Past Family History Mother Family Medical History: Cancer (breast) Sister(s) Family Medical History: Cancer Medications and Allergies Home Medications Medication Instructions Recorded Confirmed Type Ascorbic Acid [Vitamin C] 1,000 mg PO DAILY 08/21/24 08/21/24 History Cholecalciferol (Vitamin D3) 50 mcg PO DAILY 08/21/24 08/21/24 History [Vitamin D3 (50 Mcg = 2000 Iu)] Cyanocobalamin (Vitamin B-12) 1,000 mcg PO DAILY 08/21/24 08/21/24 History [Vitamin B-12] Lutein 20 mg PO DAILY 08/21/24 08/21/24 History Vitamin E (Dl,Tocopheryl Acet) 400 unit PO DAILY 08/21/24 08/21/24 History [Vitamin E (400 Iu = 180 mg)] oxyCODONE-APAP 5-325MG [Percocet 1 tab PO Q4H PRN 08/21/24 08/21/24 History 5-325 mg] Allergies Allergy/AdvReac Type Severity Reaction Status Date / Time apple Allergy Swelling Verified 08/21/24 15:25 mold Allergy Swelling Verified 08/21/24 15:25 INSECTICIDES Allergy Anaphylaxis Uncoded 08/21/24 15:25 Physical Exam Vitals: Vital Signs Temp Pulse Resp BP Pulse Ox 08/21/24 12:29 97.6 F 70 20 152/80 98 Intake and Output 08/20/24 08/21/24 08/21/24 22:59 06:59 14:59 Other: Weight 158.2 kg - Constitutional General appearance: average body habitus, cooperative, no acute distress - EENT Eyes: anicteric sclerae, EOMI ENT: hearing grossly normal, normal oropharynx - Neck Neck: no lymphadenopathy - Respiratory Respiratory: bilateral: CTA - Cardiovascular Rhythm: regular Heart sounds: normal: S1, S2 Abnormal Heart Sounds: no systolic murmur, no diastolic murmur, no rub, no S3 Gallop, no S4 Gallop, no click, no other leg Peripheral Edema: bilateral: Trace - Gastrointestinal General gastrointestinal: no absent bowel sounds, no decreased bowel sounds, no distended, no hepatomegaly, no hyperactive bowel sounds, normal bowel sounds, no organomegaly, no rigid, no scaphoid, soft, no splenomegaly, no tenderness, no umbilical hernia, no ventral hernia - Integumentary Integumentary: normal - Neurologic Neurologic: CNII-XII intact - Musculoskeletal lower extremity weakness, MS pain in the back - Psychiatric Psychiatric: A&O x's 3, appropriate affect, intact judgment & insight Results CBC & Chem 7: 08/21/24 13:19 08/21/24 13:19 Assessment and Plan (1) Breast carcinoma Current Visit: Yes Status: Acute Code(s): C50.919 - MALIGNANT NEOPLASM OF UNSP SITE OF UNSPECIFIED FEMALE BREAST SNOMED Code(s): 547725046 (2) Lower extremity weakness Current Visit: Yes Status: Acute Code(s): R29.898 - OTH SYMPTOMS AND SIGNS INVOLVING THE MUSCULOSKELETAL SYSTEM SNOMED Code(s): 846585658 (3) Pathological fracture of 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 She will follow-up with Medical Oncologist once she has completed radiation to discuss options for treatment. -Patient is receiving a dose of Zometa for bony metastasis. Calcium was 10.7 today. -Dexamethasone initiated. PPI ordered. Pain secondary to malignancy -Pain medications will being adjusted. -Medications for prevention of narcotic induced constipation Bony lesions possible cord compression -Case was discussed with Orthopedic Spine Surgeon as well as Radiation Oncologist. -Currently pending completion of imaging. Await recommendations for treatment
[2024-08-22] MEDS: ZOLEDRONIC ACID 4 MG in SODIUM CHLORIDE 0.9% 100 ML IV ONE (16:35)
--- NOTE | 2024-08-22 16:51 | MR ---
EXAMINATION TYPE: MR thoracic spine wo/w con DATE OF EXAM: 08/22/2024 4:03 PM COMPARISON: None. CLINICAL INDICATION: Female, 79 years old with history of pain, numbness in arms, pain, numbness in a libertad, breast cancer TECHNIQUE: Multiplanar, multiecho imaging on a 3.0 Fiorella magnet is performed through the thoracic spi ne. IV Contrast: 7 mL Gadobutrol (None, if empty) FINDINGS: There is a compression deformity with near complete loss of the anterior vertebral body height and so me loss of the posterior vertebral body height at T5. Posterior wall displacement into the spinal can al is present. This has moderate anterior thecal sac compression. Cord contact is present. There is s ignal change within the T4-T5 and T6 vertebral bodies compatible with metastatic disease. This extend s to the pedicles of T5 into the posterior elements. Expansion of the structures is present contribut ing to spinal canal stenosis. Cord compression and deformity through this level is present, example i mage series 901 image 20. AP spinal diameter is 0.7 cm. Series 1301, image 20. Minimal increased signal on T2-weighted sequences may be through the region of stenosis. There is exaggeration of the kyphosis centered at the compression deformity. There is diffuse narrowing of disc heights throughout the thoracic spine. No additional compression d eformities are present. There are additional areas of signal change within vertebral bodies most nota idalia anterior T2, T10 and T11 and superior T12 vertebral bodies. Additional smaller areas of abnormal signal are present throughout additional thoracic levels. T10-11 facets have hypertrophy of posterior lateral thecal sac compression. This may have some cord c ontact without AP spinal canal stenosis. Following contrast, multiple heterogenous areas of enhancement are evident including the extensive si gnal abnormality through the T5 level. Comparison: 08/21/2024 CT. Findings appear stable. IMPRESSION: 1. Metastatic disease throughout the thoracic spine with a compression deformity at T5. 2. The compression deformity at T5 is likely pathologic with collapse and involvement of the osseous structures with metastatic disease. This is encasing and contributing to severe spinal canal stenosis at T5 with compression and deformity of the spinal cord through this region. A Red level critical message alert has been initiated for [employer] via the [employer] Results System on 08/22/2024 4:48 PM. This message alert has been sent to [employer] via the preferences provided by the clinician for the receipt of Radiology Critical Findings. Message ID [id number]. [facility], , 08/22/2024 4:48 PM
[2024-08-22 17:24] LABS: Glucose,Whole Blood 193 mg/dL (70-110)
[2024-08-22] MEDS ORDERED: DEXTROSE 50% SYRINGE 50 ML IVP PRN ×2 (17:32)
--- NOTE | 2024-08-22 18:12 | P.PN ---
Progress Note - Text Progress Note Date: 08/22/24 MRI reviewed. Severe cord compression noted at the fractured level of T5 with severe kyphosis, cord draping and myelomalacial changes. There is tumor burden from T4-T7 noted with T5/6 being the worst area. There is pathological fracture of T5 noted. Axial images were not reconstituted appropriately and so these will be re-done. We will plane on at least laminectomy and decompression +/- stabilization WED vs THURS. Pt currently remains strong and has bowel/bladder faculty with LE paresthesias and tingling with "heavy" feeling in legs. She can walk, but needs assistance and this is new onset. We will maintain her on steroids for now and discuss with her what her wishes are. Plan for T3/4-T6/7 decompressive laminectomy +/- T3-T7 stabilization for pathological T5 fracture with severe cord compression. 2-3 hr surgery.
[2024-08-22 20:28] LABS: Glucose,Whole Blood 145 mg/dL (70-110)
[2024-08-22] MEDS: INSULIN ASPART (NovoLOG) 100 UNIT/ML VIAL SQ SCH (20:46)
[2024-08-23 01:55] LABS: Glucose,Whole Blood 187 mg/dL (70-110)
[2024-08-23 05:24] LABS: ALT 19 U/L (4-34); AST 29 U/L (14-36); African American GFR (CKD) 75 (>60 ml/min/1.73 sqM); Albumin 3.8 g/dL (3.5-5.0); Albumin/Globulin Ratio 1.5; Alkaline Phosphatase 172 U/L (38-126); Anion Gap 9 mmol/L; Blood Urea Nitrogen 24 mg/dL (7-17); Calcium 9.8 mg/dL (8.4-10.2); Carbon Dioxide 26 mmol/L (22-30); Chloride 102 mmol/L (98-107); Globulin 2.6 g/dL; Glucose 144 mg/dL (74-99); Non-African American GFR(CKD) 65 (>60 ml/min/1.73 sqM); Potassium 4.4 mmol/L (3.5-5.1); Sodium 137 mmol/L (137-145); Total Bilirubin 0.8 mg/dL (0.2-1.3); Total Protein 6.4 g/dL (6.3-8.2)
[2024-08-23 07:07] LABS: Glucose,Whole Blood 133 mg/dL (70-110)
[2024-08-23 12:05] LABS: Glucose,Whole Blood 110 mg/dL (70-110)
[2024-08-23] MEDS: LACTATED RINGERS 1,000 ML IV ONE ×3 (15:36→20:01)
[2024-08-23] MEDS ORDERED: TRANEXAMIC ACID 1,000 MG/10 ML VIAL MISCELLANE STA (16:26)
[2024-08-23] MEDS ORDERED: TRANEXAMIC 1,000 MG/100ML-NACL 1,000 MG in SALINE 1 100ML.BAG IVPB PRN (16:31)
--- NOTE | 2024-08-23 16:33 | P.PN ---
Progress Note - Text Progress Note Date: 08/23/24 Spine Surgery Clinical and Risk Review TOMER JORGE is a 79 YO FEMALE presenting for evaluation of BACK PAIN, LEG HEAVINESS, HX OF BCA WITH PATHOLOGICAL FRACTURE, T5 WITH TUMOR BURDEN. It was my pleasure to have seen and examined TOMER JORGE. In our visit today we have had a chance to go over subjective complaints, physical examination findings and treatments including the natural course history without intervention and various interventional options. The patient's imaging demonstrates the following: * T5 PATHOLOGICAL FRACTURE WITH KYPHOSIS * SEVERE STENOSIS T4-6 WITH CORD COMPRESSION AND MYELOMALACIA * TUMOR BURDEN T4-7 On a physical exam, TOMER JORGE demonstrates the following: * HEAVINESS IN THE LEGS 4+/5 * PAIN IN THE UPPER BACK * DIFFICULTY WITH WALKING I have explained to the patient that as their condition progresses it will cause further neurological deficits and eventual paralysis. Based on the patients imaging, physical exam, and the rapid progression and disabling nature of their symptoms, at this time I recommend surgery in the form of a: T4-6 LAMINECTOMY WITH TUMOR REMOVAL, POSSIBLE STABILIZATION I discussed the risk and benefits of this procedure at length with TOMER JORGE. The patient and family agreed to consider pursuing the procedure above mentioned. Prior to surgery, they should follow up with her PCP (Cardio, ID, IM etc) for clearance. Questions were invited and answered, and the patient wishes to proceed as outlined below. Currently, I am recommendin. T4-6 LAMINECTOMY WITH TUMOR REMOVAL, POSSIBLE STABILIZATION 2. Obtain appropriate presurgical workup and clearances as discussed with the patient. 3. Review of surgical risks and benefits as well as an educational packet on the proposed surgical procedure. Risks: All surgical procedures come with inherent risks, including those related to positioning, anesthesia, intraoperative findings, and postoperative complications. It is important to understand that surgery does not come with any guarantee of a successful outcome as complications and adverse events are always possible. The patient was given a handout in the office today discussing the surgical procedure and risks associated with the intervention, both of which were discussed with the patient. These risks include but are not limited to the following: Experiencing same, different or even worse symptoms in back, neck, arms, or legs compared to before surgery. Requiring further surgery or other forms of treatment presently or at some time in the future at same or other levels of the intended spine surgery. On an extreme but fortunately relatively rare basis severe complications such as blindness, stroke, heart attack, temporary and/or permanent nerve injury, paralysis, coma, or may occur, sometimes without known explanation. Surgical complications may include but are not limited to risk of infection, fluid accumulation in the surgical dissection site, including a seroma or hematoma, that requires additional surgery, wound drainage, bleeding, new numbness or weakness, vision changes/loss, spinal fluid leakage, non-healing and/or infected incision, headaches, difficulty or inability to swallow, hoarseness, hemopneumothorax, pneumothorax, impotence, retrograde ejaculation, vaginal dryness; injury to nerves, spinal cord, blood vessels, lymphatics or other vital organs (i.e., bowel injury, injury to the great vessels); hetero topic bone formation; complications related to the hardware such as screws, rods, cages including misplaced hardware, device failure, instrumentation at the wrong spine level, hardware fracture/breakage, or hardware loosening; vertebral failure of the spinal column above or below the newly placed hardware; retained surgical instrumentations or devices and the need for further surgery. Medical risks of the planned spine surgery include but are not limited to generalized Infections to the whole body or local areas outside of the surgical site (sepsis), heart attack, bleeding, anaphylaxis, meningitis, seizure, epilepsy, hearing loss, burn alvarado, laceration of the head or other areas of the body, bruising, hypersensitivity of the skin, bladder over distension; allergic reaction; shoulder injury related to positioning; fat, blood and air clots to other areas of the body like heart, lungs, brain; failure of internal organs such as lungs, kidneys, liver and excessive bleeding. If bl ood transfusions are necessary, note that transfusions may cause intolerance reactions such as anaphylaxis or other complex reactions. Despite best efforts, the results of spine surgery might not heal in terms of bone, soft tissues such as skin, fascia, ligaments, and joints. Additionally, in order to achieve best possible results, spine surgery may be carried out beyond the initially planned levels and involve decompression, fusion including insertion of hardware at levels other than the original intended area of surgical interest change some portions of the procedure in order to ensure the best possible outcomes. With spine surgery and spinal fusion, there are different off label uses of instrumentation (devices, implants and hardware) as well as biological substances (bone morphogenic proteins, demineralized bone matrix) as well as using extra bone from allograft sources (i.e. cadaver bone) or autograft (iliac crest bone, ribs, or the spine itself). The patient has been given information about these practices and their inherent risks and benefits. The patient has had a chance to review all the listed information, has been given print outs detailing this information, and has had all his/her questions answered to their satisfaction. It was my pleasure to have seen and examined TOMER JORGE. In our visit today we have had a chance to go over my understanding of our patient's current condition, the natural course history without intervention and various interventional options. Questions were invited and answered, and the patient wishes to proceed as outlined above. I have seen and examined the patient for 25 minutes and we have spent more than 50% of the time in repeat and detailed counseling about the patient's condition, its natural course history without and as much as can be predicted with surgery and re-review of various surgical treatment options. In conclusion, TOMER JORGE and their family requested we proceed with the above suggested surgery and are willing to accept risks and limitations of the suggested surgery as the nature of the disease process and our best attempts at treatment for the condition. Thank you again for allowing us to be part of your patient's care. Please don't hesitate to contact me if you have any further questions. Signed and authenticated by: Zaheer [facility] [address] [facility], [address] [address]
[2024-08-23] MEDS ORDERED: SUCCINYLCHOLINE CHLORIDE 200 MG/10 ML VIAL IV ONE (16:38)
[2024-08-23] MEDS ORDERED: NEOSTIGMINE 1 MG/ML 10 ML VIAL ONE (16:38)
[2024-08-23] MEDS ORDERED: GLYCOPYRROLATE 0.2 MG/ML 2 ML VIAL ONE (16:38)
[2024-08-23] MEDS ORDERED: LIDOCAINE 1% INJ 10MG/ML (20 ML MDV) ONE (16:38)
[2024-08-23] MEDS ORDERED: ONDANSETRON 4 MG/2 ML VIAL ONE (16:38)
[2024-08-23] MEDS ORDERED: ACETAMINOPHEN IV (For NPO) 1,000 MG/100 ML VIAL ONE (16:38)
[2024-08-23] MEDS ORDERED: MIDAZOLAM 2 MG/2 ML VIAL ONE (16:38)
[2024-08-23] MEDS ORDERED: PROPOFOL 10 MG/ML 20 ML VIAL IV ONE (16:38)
[2024-08-23] MEDS ORDERED: DEXAMETHASONE SOD PHOSPHATE 4 MG/ML 1 ML VIAL ONE (16:38)
[2024-08-23] MEDS ORDERED: HYDROmorphone (PF) 1 MG/ML ONE (16:38)
[2024-08-23] MEDS ORDERED: KETAMINE HCL IN 0.9 % NACL 50 MG/5 ML SYRINGE ONE (16:38)
[2024-08-23] MEDS ORDERED: TRANEXAMIC 1,000 MG/100ML-NACL PREMIX BAG ONE (16:38)
[2024-08-23] MEDS ORDERED: ROCURONIUM 10 MG/ML (5 ML VIAL) IV ONE (16:38)
[2024-08-23] MEDS ORDERED: fentaNYL (PF) 50 MCG/ML 2 ML AMP ONE (16:38)
[2024-08-23] MEDS: THROMBIN (BOVINE) 5,000 UNIT VIAL TOPICAL ONE (17:51)
[2024-08-23] MEDS: GENTAMICIN 80 MG in SODIUM CHLORIDE 0.9% IRRIGATIO 3,000 ML IRRIGATION ONE (17:53)
[2024-08-23] MEDS: ceFAZolin 3,000 MG in SODIUM CHLORIDE 0.9% IRRIGATIO 3,000 ML IRRIGATION ONE (17:54)
[2024-08-23] MEDS: VANCOMYCIN 1,000 MG VIAL MISCELLANE ONE (19:06)
[2024-08-23] MEDS ORDERED: ONDANSETRON 4 MG/2 ML VIAL IVP PRN (20:24)
--- NOTE | 2024-08-23 20:37 | FL ---
Fluoroscopy INDICATION: Pain FINDINGS: Fluoroscopy time: 46 seconds. Total dose area product (DAP) in uGy*m?, mGy*cm? (or similar): 664.86 Images obtained: 0. IMPRESSION: 1. Documentation of fluoroscopy. [facility], , 08/23/2024 8:35 PM
[2024-08-23] MEDS: hydrALAZINE HCL 20 MG/ML 1 ML VIAL IVP STA (20:52)
--- NOTE | 2024-08-23 21:21 | P.PN ---
Progress Note - Text Progress Note Date: 08/23/24 Spine Post Op Dx: Pathological fracture T5 with T4-6 severe stenosis and tumor burden due to metestatic lung cancer with thoracic myelopathy PROCEDURE: T3-7 STABILIZATION WITH T4-6 LAMINECTOMY AND TUMOR RESECTION SURGEON: SUMAN ANESTHESIA: GETA EBL: 300 CC FLUIDS: 1500 CC URINE: 300 CC COMPLICATIONS: NONE DISPO: STABLE TO PACU
[2024-08-23] MEDS: HYDROmorphone 0.5 MG/0.5 ML SYRINGE IVP PRN (21:31)
--- NOTE | 2024-08-24 05:27 | P.PN ---
Subjective Progress Note Date: 08/23/24 This is a pleasant 79 years old female who presents because of back pain and suspicious for metastatic disease to the spine sent by her oncologist Dr. Glaser. Patient states that her problem started on April 20, 2024 when she was doing some heavy work like picking up the trailer she started having pain about her left shoulder blade, which was gradually getting worse over the next 2 weeks it progressed to the front of the chest and below her left breast where she had mastectomy from previous breast cancer before. She follow-up with her PCP, x- ray was unremarkable for her spine, she was referred to orthopedic team where she had bone scan and after referral to her oncologist Dr. Glaser she had MRI with contrast done about 3 weeks ago, she received a call from Dr. Glaser directed her to the emergency room just prior to hospitalization Patient complains from back pain 10/10 in the upper back radiating across the left to her front chest Complains from weakness in her both lower extremities but states this symmetrical from the knee down for 1.5 weeks with mild paresthesia and tingling on the side of both feet started yesterday She denies saddle paresthesia, she denies urine or bowel incontinence She denies any other specific GI/ symptoms no headache dizziness weakness numbness other than above no chest pain or dyspnea She denies smoking alcohol or illicit drugs As per signout I received from ED service, Dr. Lora team was contacted and he recommended to a admit patient under medical service was put the orthopedic team on consult. Orthopedic team already aware of the patient on admission Patient afebrile Labs unremarkable CBC, BMP, LFT CT of the cervical and thoracic spine showing metastatic disease to T4 and T6 with possible metastasis and pathological fracture of T5 08/22 Patient pains feels better 1/10 in her upper back which is radiating to the left breast area at the site of her previous mastectomy MRI of the cervical and thoracic spine is pending She remains on dexamethasone She remains on pain medication Family at bedside and all questions answered 08/23/2024 Patient is seen in follow-up underwent multiple images including MRI of the thoracic spine which was indicative of severe stenosis with tumor burden and fractures of the T5. Patient is scheduled to undergo surgical intervention with orthopedics this afternoon. Patient is currently n.p.o. and diet will be resumed once cleared by surgery. Oncology following as well and patient will need PT/OT therapy evaluation. Oncology is following with history of breast cancer with mets to the spine. Cervical MRI ordered and pending as well per oncology for continued weakness and evaluation. Patient is afebrile with no reports of chest pain or shortness of breath. Given patient's age she would be considered low to moderate risk and is willing to proceed with surgical intervention to enhance quality of life. Patient is unable to walk at this time. Review of systems: Constitutional: No reports of fatigue, fever, or chills Cardiovascular: No reports of chest pain or palpitations Respiratory: No reports of shortness of breath or cough GI: No reports of nausea, vomiting, or diarrhea : No reports of dysuria or retention Neurovascular: reports of extreme weakness and inability to ambulate with continued back pain All medications have been reviewed Physical exam: GENERAL: The patient is alert and oriented x3, not in any acute distress. Well developed, elderly appearing. HEENT: Pupils are round and equally reacting to light. EOMI. No scleral icterus. No conjunctival pallor. Normocephalic, atraumatic. No pharyngeal erythema. No thyromegaly. CARDIOVASCULAR: S1 and S2 present. No murmurs, rubs, or gallops. PULMONARY: Chest is clear to auscultation, no wheezing , no crackles. ABDOMEN: Soft, nontender, nondistended, normoactive bowel sounds. No palpable organomegaly. MUSCULOSKELETAL: No joint swelling or deformity. EXTREMITIES: No cyanosis, clubbing, or pedal edema. NEUROLOGICAL: Gross neurological examination did not reveal any focal deficits. Diffusely weak SKIN: No rashes. no petechiae. 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 Tumor burden of T4-7 noted on imaging History of breast cancer status postmastectomy with metastasis to the spine Bilateral lower extremity weakness and numbness likely secondary to severe spinal canal stenosis GI prophylaxis DVT prophylaxis Full code Plan: Follow-up MRI of the cervical thoracic spine shows severe stenosis T4-6 with cord compression and myelomalacia with a T5 pathological fracture with kyphosis and tumor burden of T4-7. Patient is scheduled to undergo surgical intervention with orthopedics this afternoon. Currently n.p.o. and diet will be resumed once cleared by surgery Continue the patient on dexamethasone 4 mg every 6 hours Hematology/oncology team following and has also ordered MRI of the cervical spine for continued upper extremity weakness Home medications reviewed and resumed as appropriate Continue pain management, cautious with narcotic use given patient's age Patient will need PT/OT therapy evaluation once cleared by orthopedics The impression and plan of care has been dictated by Jing Benjamin, Nurse Practitioner as directed. Dr. Melanie MD I have performed a history and examination and MDM of this patient, discussed the same with the dictator, and agree with the dictator's assessment and plan as written ,documented as a scribe. Based on total visit time, I have performed more than 50% of the visit. Objective - Vital Signs Vital signs: Vital Signs Temp 98.2 F 08/23/24 08:06 Pulse 51 L 08/23/24 08:06 Resp 17 08/23/24 08:06 BP 156/87 08/23/24 08:06 Pulse Ox 93 L 08/23/24 08:06 FiO2 Intake & Output 08/22/24 08/23/24 08/23/24 18:59 06:59 18:59 Intake Total 1080 540 Balance 1080 540 Intake: Oral 1080 540 Other: Voiding Method Bedside Commode Bedside Commode # Voids 3 2 1 # Bowel Movements 1 - Labs CBC & Chem 7: 08/21/24 13:19 08/23/24 04:32 Labs: Abnormal Lab Results - Last 24 Hours (Table) 08/22/24 08/22/24 08/22/24 Range/Units 12:22 17:23 20:27 BUN (7-17) mg/dL Glucose (74-99) mg/dL POC Glucose (mg/dL) 136 H 193 H 145 H (70-110) mg/dL Alkaline Phosphatase (38-126) U/L 08/23/24 08/23/24 08/23/24 Range/Units 01:53 04:32 07:06 BUN 24 H (7-17) mg/dL Glucose 144 H (74-99) mg/dL POC Glucose (mg/dL) 187 H 133 H (70-110) mg/dL Alkaline Phosphatase 172 H (38-126) U/L
[2024-08-24 06:18] LABS: Glucose,Whole Blood 145 mg/dL (70-110)
[2024-08-24 08:53] LABS: Basophils # (A) 0.01 X 10*3/uL (0.00-0.10); Basophils % (A) 0.1 %; Eosinophils # (A) 0 X 10*3/uL (0.04-0.35); Eosinophils % (A) 0 %; HCT 37.6 % (37.2-46.3); HGB 12.4 g/dL (12.0-15.0); Lymphocytes # (A) 0.54 X 10*3/uL (0.90-5.00); Lymphocytes % (A) 3.9 %; MCH 29.5 pg (27.0-32.0); MCV 89.3 FL (80.0-97.0); Mean Platelet Volume 11.5 FL (9.5-12.2); Monocytes # (A) 0.84 X 10*3/uL (0.20-1.00); NRBC Per 100 WBC 0 X 10*3/uL (0.00-0.01); Neutrophils # (A) 12.52 X 10*3/uL (1.80-7.70); Neutrophils % (A) 89.4 %; Platelet Count 200 X 10*3/uL (140-440); RBC 4.21 X 10*6/uL (4.10-5.20); RDW 13.7 % (11.5-14.5)
[2024-08-24 09:20] LABS: Blood Urea Nitrogen 20.8 mg/dL (9.0-27.0); Calcium 8.8 mg/dL (8.7-10.3); Chloride 105 mmol/L (96-109); Glucose 122 mg/dL (70-110); Potassium 4.1 mmol/L (3.5-5.5); Sodium 143 mmol/L (135-145)
[2024-08-24] MEDS: CYCLOBENZAPRINE 5 MG TAB PO PRN (11:20)
[2024-08-24 11:37] LABS: Glucose,Whole Blood 140 mg/dL (70-110)
--- NOTE | 2024-08-24 13:56 | P.PN ---
Subjective Progress Note Date: 08/24/24 Principal diagnosis: Pathological fracture T5 with T4-6 severe stenosis and tumor burden due to metestatic lung cancer with thoracic myelopathy PROCEDURE: T3-7 STABILIZATION WITH T4-6 LAMINECTOMY AND TUMOR RESECTION Patient was seen at bedside this morning lying in the semirecumbent position in bed with dressing and drain in place over thoracic spine as well as Lamar in place. Patient says she just finished working with therapy earlier this morning and walked out of the hallway. Patient says her pain is well-controlled with oral medication. Patient says she is hoping to go home upon discharge from the hospital. She says her children are helping her get stuff ready and set up at home. Patient denies any other issues at this time. Objective - Vital Signs Vital signs: Vital Signs Temp 98.1 F 08/24/24 07:45 Pulse 70 08/24/24 07:45 Resp 18 08/24/24 07:45 BP 149/63 08/24/24 07:45 Pulse Ox 95 08/24/24 07:45 FiO2 Intake & Output 08/23/24 08/24/24 08/24/24 18:59 06:59 18:59 Intake Total 1552 740 Output Total 1210 20 Balance 1552 -470 -20 Weight 71.668 kg Intake: IV 1552 500 Oral 240 Output: Drainage 60 20 Right Upper Posterior 60 20 Back Urine 850 Estimated Blood Loss 300 Other: Voiding Method Bedside Commode Indwelling Catheter # Voids 1 - Exam Dressing appears to be clean, dry, intact of the lumbar spine with Hemovac drain in place. Lamar is currently in place. Maintain dressing clean, dry, intact. Plan for dressing change and possible drain removal tomorrow. Sensation is equal, symmetric, intact on exam. There is some generalized tenderness with patient over the thoracic spine exam near incision. Nontender on rest of exam. Patient does have good range of motion in the bilateral lower and upper extremities on exam. 4/5 in all major motor groups in bilateral upper and lower extremities. Radial pulse intact, 2+ bilaterally. Cap refill under 3 seconds in digits of upper extremities. Negative Homans well-appearing F close bilaterally. Negative Gerald bilaterally. - Labs CBC & Chem 7: 08/24/24 03:27 08/24/24 03:27 Labs: Abnormal Lab Results - Last 24 Hours (Table) 08/24/24 08/24/24 08/24/24 Range/Units 03:27 03:27 06:17 WBC 14.00 H (4.50-10.00) X 10*3/uL Immature Gran # 0.09 H (0.00-0.04) X 10*3/uL Neutrophils # 12.52 H (1.80-7.70) X 10*3/uL Lymphocytes # 0.54 L (0.90-5.00) X 10*3/uL Eosinophils # 0 L (0.04-0.35) X 10*3/uL BUN/Creatinine Ratio 26.00 H (12.00-20.00) Ratio Glucose 122 H (70-110) mg/dL POC Glucose (mg/dL) 145 H (70-110) mg/dL 08/24/24 Range/Units 11:36 WBC (4.50-10.00) X 10*3/uL Immature Gran # (0.00-0.04) X 10*3/uL Neutrophils # (1.80-7.70) X 10*3/uL Lymphocytes # (0.90-5.00) X 10*3/uL Eosinophils # (0.04-0.35) X 10*3/uL BUN/Creatinine Ratio (12.00-20.00) Ratio Glucose (70-110) mg/dL POC Glucose (mg/dL) 140 H (70-110) mg/dL Assessment and Plan Assessment: 1. Pathological fracture T5 with T4-6 severe stenosis and tumor burden due to metastatic lung cancer with thoracic myelopathy -Postop day 1 status post T3-T7 stabilization with T4-6 laminectomy and tumor resection Plan: 1. Pathological fracture T5 with T4-6 severe stenosis and tumor burden due to metastatic lung cancer with thoracic myelopathy - T3-T7 stabilization with T4-6 laminectomy and tumor resection surgery performed yesterday, 08/23/2024. Patient stable at bedside this morning with Lamar and dressing and drain in place. Patient did work with therapy this morning and while walking down the [place]. Maintain dressing clean, dry, intact at this time and keep drain at full suction. Plan for dressing change tomorrow and possible drain removal and Lamar removal tomorrow. Pain medication as needed. Continue with Decadron for now. Plan for discharge home with home care within the next few days. 2. Appreciate medical management 3. Pain management -Tylenol; Flexeril; Percocet 4. DVT prophylaxis -[place] 5. GI prophylaxis -Protonix; senna 6. PT/OT weightbearing as tolerated with walker and assistance as needed 7. Encourage incentive spirometer use 8. Discharge planning - Plan for discharge home with home care within the next few days. Time with Patient: Less than 30
--- NOTE | 2024-08-24 14:41 | P.OP ---
Date of Procedure: 08/23/24 Preoperative Diagnosis: 1. T5 PATHOLOGICAL FRACTURE 2. T4-6 SEVERE STENOSIS AND TUMOR BURDEN WITH THORACIC CORD COMPRESSION AND MYELPATHY 3. MID BACK PAIN 4. LE WEAKNESS 5. METESTATIC BCA 6. COMPLEX MEDICAL PATIENT Postoperative Diagnosis: 1. T5 PATHOLOGICAL FRACTURE 2. T4-6 SEVERE STENOSIS AND TUMOR BURDEN WITH THORACIC CORD COMPRESSION AND MYELPATHY 3. MID BACK PAIN 4. LE WEAKNESS 5. METESTATIC BCA 6. COMPLEX MEDICAL PATIENT Procedure(s) Performed: 1. OPEN TREATMENT T5 PATHOLOGICAL FRACTURE 2. T3-7 POSTEROLATERAL INSTRUMENTED FUSION 3. T3-7 SEGMENTAL INSTRUMENTATION 4. T4-6 BILATERAL LAMINECTOMY, FACETECTOMY AND FORAMINOTOMY WITH EPIDURAL TUMOR RESECTION WITH SEPARATION SURGERY 5. EPIDURAL MASS REMOVAL 6. VERTEBRAL BODY BIOPSY 7. CEMENT AUGMENTATION T3, T4, T6, T7 VERTEBRAL BODIES WITH SCREW AUGMENTATION USE OF IONM Implants: -MICHAEL EVEREST RODS AND SCREWS -MAGNATOS, DBM ALLOGRAFT Anesthesia: GETA Surgeon: Zaheer Lora Pattern Worker #1: Shashi Neil (WAS PRESENT AND ASSISTED WITH ALL ASPECTS OF THE CASE FROM POSITION TO DRESSING PLACEMENT) Estimated Blood Loss (ml): 300 IV fluids (ml): 1,500 Urine output (ml): 300 Pathology: other (T5 and t6 vertebra and posterior elements) Condition: stable Disposition: PACU Indications for Procedure: TOMER JORGE is a 79 YO FEMALE presenting for evaluation of BACK PAIN, LEG HEAVINESS, HX OF BCA WITH PATHOLOGICAL FRACTURE, T5 WITH TUMOR BURDEN. It was my pleasure to have seen and examined TOMER JORGE. In our visit today we have had a chance to go over subjective complaints, physical examination findings and treatments including the natural course history without intervention and various interventional options. The patient's imaging demonstrates the following: * T5 PATHOLOGICAL FRACTURE WITH KYPHOSIS * SEVERE STENOSIS T4-6 WITH CORD COMPRESSION AND MYELOMALACIA * TUMOR BURDEN T4-7 On a physical exam, TOMER JOGRE demonstrates the following: * HEAVINESS IN THE LEGS 4+/5 * PAIN IN THE UPPER BACK * DIFFICULTY WITH WALKING I have explained to the patient that as their condition progresses it will cause further neurological deficits and eventual paralysis. Based on the patients imaging, physical exam, and the rapid progression and disabling nature of their symptoms, at this time I recommend surgery in the form of a: T4-6 LAMINECTOMY WITH TUMOR REMOVAL, POSSIBLE STABILIZATION I discussed the risk and benefits of this procedure at length with TOMER JORGE. The patient and family agreed to consider pursuing the procedure above mentioned. Prior to surgery, they should follow up with her PCP (Cardio, ID, IM etc) for clearance. Questions were invited and answered, and the patient wishes to proceed as outlined below. Currently, I am recommendin. T4-6 LAMINECTOMY WITH TUMOR REMOVAL, POSSIBLE STABILIZATION Description of Procedure: OPEN TREATMENT T5 PATHOLOGICAL FRACTURE WITH T3-7 STABILIZATION AND FUSION WITH T4-6 LAMINECTOMY, TUMOR REMOVAL ([place]) The patient was seen and examined in the preoperative area. All preoperative protocols were followed. Informed consent was obtained, risks and benefits of the procedure were discussed at length. Risks including bleeding infection damage to the surrounding tissue and risk of reoperation were discussed with the patient. Risk of anesthesia up to and including was discussed with the patient. These are outlined in the risk review. They were willing to accept these risks and all of the risks of surgery. The patient was given a weight- based dose of antibiotics in the form of 2 g Ancef. The patient was seen and evaluated by the anesthesia team who deemed them fit for surgery. The site was marked, the patient was willing to proceed with the procedure. The patient was transferred to the operative suite by the Department of anesthesia. They were then drifted off to sleep by the department anesthesia and GETA was performed. The patient tolerated this well. pre-positioning motors were obtained.Lamar in place from the floor. Chapman butcher head was placed on the patient. Once confirmation of lines and ventilation the patient was secured and the patient was transferred to a [prone Uli table very carefully] with the Post-positioning motors remaining stable. All bony prominences including wrists, elbows, axilla, chest, hips, and thighs, and feet were padded very well. Special attention was paid to the genitalia and these were padded accordingly. SCDs were placed on bilateral lower extremities and were connected. Arms were well padded and placed tucked at his side thumbs down. Once in position, again we confirmed good ventilation capabilities and that lines were running appropriately. The patient's cervicothoracic spine was then exposed. 1010s were placed outlining the incision site. Standard alcohol was used to clean the incision site and allowed to dry. C-arm was used to biomark the patient and confirm level for incision which was marked with a skin marker. Operative briefing was performed with all teams and everyone in agreement to proceed. The patient was then prepped and draped in a normal sterile fashion. Timeout was then performed and all parties were in agreement with the procedure to be performed. Midline skin incision made over the previously bio-marked area and dissection taken down to the lamina of T3-T7 with TVP exposed at these levels as well. Subperiosteal dissection was then performed and a penfield placed at the pars of T5 for lateral image and marking of levels for operation. Tracker was then placed on the SP and a 3D intraoperative spin was done and registered with [employer]. Once registered and confirmed to be accurate navigated instruments were used to place screws. A navigated rola was used to make fire pilot holes followed by a tap and screw route cdl driver. Screw was advanced to an appropriate level. We then proceeded to cement augmentation. Screws and vertebral bodies at T3, T4, T6 and T7 were augmented with cement under lateral imaging. Good cement fill was noted. No extravasation or myelogram noted. Pt remained stable through cementation. We then proceeded to jillian placement. Bilateral laminectomy, complete facetectomy and foraminotomies were done from T4-6 for complete neural decompression around the fracture site as well as tumor removal and to alleviate pressure from the tumor. Loose bony fragments were removed. The tumor was removed posteriorly and the bone in this area was highly unstable and fragile as well as tumor filled. We removed this and sent t o pathology. There were good pulsations of the cord once decompression was completed. The wound was irrigated and meticulous hemostasis achieved. Rods were then sized and selected and cut to length. They were bent accordingly. Rods were then placed without tension in the tulip heads and set screws secured. All set screws were placed and were then final tightened. Meticulous hemostasis was performed. The wound was then copiously irrigated with 3 L of Ancef irrigation followed by 3 L of gentamicin irrigation followed by 3 bottles of Irricept through the case and 1 L betadine which was then washed with 3 L of normal sterile saline. Facet joints were further drilled at each level to allow for fusion Surgicel was placed over the dura. Allograft was placed in the posterior lateral gutters. This was impacted into position for fusion. A deep subfacial drain was placed and secured to the skin. 2 g of powdered vancomycin was then placed deep. We then proceeded with layered closure first in the deep fascia with #1 PDS then in the deep fascia. 0 Vicryl was used in the deep subq fascia and 2-0 in the superficial subq. Skin jorge then approximated skin edges. The wound edges approximated very well. The wound was then cleaned and dressed sterilely with an operative foam dressing 4 x 4 and Tegaderm. The patient was transferred back to their hospital bed atraumatically. Drain continued to hold suction. The patient was then awakened and extubated by the department of anesthesia having tolerated the procedure very well with no complications. They were transferred to the postoperative care unit in stable condition.
--- NOTE | 2024-08-24 15:39 | CT ---
EXAMINATION TYPE: CT thoracic spine wo con DATE OF EXAM: 08/24/2024 COMPARISON: 08/21/2024 CLINICAL INDICATION: Female, 79 years old with history of s/p T3-T7 decompressive laminectomy and T3- T7 stab; [facility], post-op CT DLP: 1133 mGycm Automated exposure control for dose reduction was used. FINDINGS: There are postsurgical changes of posterior metallic fusion from T3 through T7. There is methylmethac rylate glue and pedicle screws in T3, T4, T6 and T7 vertebral segments.. There is a moderate miranda janina fracture of T5. T5 segment appears mottled and is consistent with a pathological fracture. Lytic lesions were identified in T4, T6 and T7 on the prior study. There is methylmethacrylate glue withi n these lesions. There is subcutaneous emphysema and epidural emphysema consistent with the recent surgery. There is near anatomic alignment throughout the thoracic spine. Streak artifact from the pedicle screws and rods limits evaluation of the spinal canal in the surgica l region but there is no evidence of canal stenosis. There are no epidural or paraspinal soft tissue masses or discrete fluid collections IMPRESSION: 1. POSTSURGICAL CHANGES OF THORACIC FUSION FROM T3 THROUGH T7 WITH NEAR ANATOMIC ALIGNMENT. 2. NO DEFINITE EPIDURAL OR PARASPINAL SOFT TISSUE MASSES OR DISCRETE FLUID COLLECTIONS. 3. STABLE PATHOLOGICAL MODERATE COMPRESSION FRACTURE OF T5 4. METHYLMETHACRYLATE GLUE IN THE LYTIC METASTATIC LESIONS WITHIN T4, T6 AND T7. [facility], , 08/24/2024 3:36 PM
[2024-08-24 16:45] LABS: Glucose,Whole Blood 125 mg/dL (70-110)
--- NOTE | 2024-08-24 18:13 | MR ---
INDICATION: Patient age:Female; 79 years old; Reason for study: pain, numbness in arms; PHH. COMPARISON: CT thoracic spine 08/24/2024, MR thoracic spine 08/22/2024, CT cervical thoracic spine 08/21, nuclear medicine bone scan 06/20/2024. TECHNIQUE: Multi planar, multi sequence imaging was performed of the cervical spine before and after the uneventful administration 7 mL Gadobutrol intravenously. FINDINGS: Alignment: The cervical vertebral bodies have preserved heights. Alignment is within normal limits gi kirill patient positioning. Bones: Partial visualization of fixation with vertebral augmentation involving the thoracic spine at the visualized T3 and T4 vertebral body levels. Enhancing osseous metastatic lesions identified throu ghout the cervical spine from C2 through C7 with involvement of the T1 vertebral body. There is invol vement of multiple posterior elements including the right C4 and C5 facet and lamina. There is involv ement of the C3 spinous process and left C5 and C7 facets. Multilevel anterior osteophytosis. No evid ence for pathologic fracture. Cord: The spinal cord is unremarkable with regards to their signal intensity and morphology. Discs: Multilevel disc desiccation is present. C2-C3: No significant disc pathology. The spinal canal is patent. No neural foraminal stenosis. C3-C4: No significant disc pathology. The spinal canal is patent. Uncovertebral joint hypertrophy wi th minimal bilateral neural foraminal narrowing. C4-C5: Central disc protrusion with mild effacement of the anterior thecal sac. No significant centra l canal stenosis. Uncovertebral joint hypertrophy with mild right neural foraminal stenosis. The left neural foramen is patent. C5-C6: Broad-based disc bulge with mild effacement of the anterior thecal sac. Mild central canal simon nosis. Uncovertebral joint hypertrophy with minimal bilateral neural foraminal narrowing. C6-C7: Broad-based disc bulge with mild effacement of the anterior thecal sac. There is mild left ne ural foraminal stenosis. The right neural foramen is patent. C7-T1: No significant disc pathology. The spinal canal is patent. No neural foraminal stenosis. Other: A few T2 hyperintense thyroid nodules identified measuring up to 1 cm. IMPRESSION: 1. Enhancing metastatic disease throughout the visualized cervicothoracic spine without evidence for pathologic fracture. 2. Mild multilevel disc degeneration with associated osteoarthritic changes. 3. Partial visualization of post surgical changes of the thoracic spine. [facility], , 08/24/2024 6:11 PM
[2024-08-24 20:53] LABS: Glucose,Whole Blood 131 mg/dL (70-110)
[2024-08-25 02:46] LABS: Glucose,Whole Blood 153 mg/dL (70-110)
--- NOTE | 2024-08-25 05:15 | P.PN ---
Subjective Progress Note Date: 08/24/24 This is a pleasant 79 years old female who presents because of back pain and suspicious for metastatic disease to the spine sent by her oncologist Dr. Glaser. Patient states that her problem started on April 20, 2024 when she was doing some heavy work like picking up the trailer she started having pain about her left shoulder blade, which was gradually getting worse over the next 2 weeks it progressed to the front of the chest and below her left breast where she had mastectomy from previous breast cancer before. She follow-up with her PCP, x- ray was unremarkable for her spine, she was referred to orthopedic team where she had bone scan and after referral to her oncologist Dr. Glaser she had MRI with contrast done about 3 weeks ago, she received a call from Dr. Glaser directed her to the emergency room just prior to hospitalization Patient complains from back pain 10/10 in the upper back radiating across the left to her front chest Complains from weakness in her both lower extremities but states this symmetrical from the knee down for 1.5 weeks with mild paresthesia and tingling on the side of both feet started yesterday She denies saddle paresthesia, she denies urine or bowel incontinence She denies any other specific GI/ symptoms no headache dizziness weakness numbness other than above no chest pain or dyspnea She denies smoking alcohol or illicit drugs As per signout I received from ED service, Dr. Lora team was contacted and he recommended to a admit patient under medical service was put the orthopedic team on consult. Orthopedic team already aware of the patient on admission Patient afebrile Labs unremarkable CBC, BMP, LFT CT of the cervical and thoracic spine showing metastatic disease to T4 and T6 with possible metastasis and pathological fracture of T5 08/22 Patient pains feels better 1/10 in her upper back which is radiating to the left breast area at the site of her previous mastectomy MRI of the cervical and thoracic spine is pending She remains on dexamethasone She remains on pain medication Family at bedside and all questions answered 08/23/2024 Patient is seen in follow-up underwent multiple images including MRI of the thoracic spine which was indicative of severe stenosis with tumor burden and fractures of the T5. Patient is scheduled to undergo surgical intervention with orthopedics this afternoon. Patient is currently n.p.o. and diet will be resumed once cleared by surgery. Oncology following as well and patient will need PT/OT therapy evaluation. Oncology is following with history of breast cancer with mets to the spine. Cervical MRI ordered and pending as well per oncology for continued weakness and evaluation. Patient is afebrile with no reports of chest pain or shortness of breath. Given patient's age she would be considered low to moderate risk and is willing to proceed with surgical intervention to enhance quality of life. Patient is unable to walk at this time. 08/24/2024 Patient is seen in follow-up today scheduled to undergo cervical MRI sometime today and patient is status post surgical interventions with orthopedics. Large tumor burden noted in the thoracic spine with significant kyphoplasty. Patient is up in the chair continues to have pain and weakness and will be working with physical therapy today. Oncology following as well at this time. Patient is afebrile with no reports of chest pain or shortness of breath. Patient tolerating diet with not much of an appetite, encourage small frequent meals and close monitoring of blood sugars. Review of systems: Constitutional: No reports of fatigue, fever, or chills Cardiovascular: No reports of chest pain or palpitations Respiratory: No reports of shortness of breath or cough GI: No reports of nausea, vomiting, or diarrhea : No reports of dysuria or retention Neurovascular: reports of extreme weakness and continued back pain All medications have been reviewed Physical exam: GENERAL: The patient is alert and oriented x3, not in any acute distress. Well developed, elderly appearing. HEENT: Pupils are round and equally reacting to light. EOMI. No scleral icterus. No conjunctival pallor. Normocephalic, atraumatic. No pharyngeal erythema. No thyromegaly. CARDIOVASCULAR: S1 and S2 present. No murmurs, rubs, or gallops. PULMONARY: Chest is clear to auscultation, no wheezing , no crackles. ABDOMEN: Soft, nontender, nondistended, normoactive bowel sounds. No palpable organomegaly. MUSCULOSKELETAL: No joint swelling or deformity. EXTREMITIES: No cyanosis, clubbing, or pedal edema. NEUROLOGICAL: Gross neurological examination did not reveal any focal deficits. Diffusely weak SKIN: No rashes. no petechiae. 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 Tumor burden of T4-7 noted on imaging Status post T3-7 stabilization with T4-6 laminectomy and tumor resection on 08/23/2024 History of breast cancer status postmastectomy with metastasis to the spine Bilateral lower extremity weakness and numbness likely secondary to severe spinal canal stenosis GI prophylaxis DVT prophylaxis Full code Plan: Follow-up MRI of the cervical thoracic spine shows severe stenosis T4-6 with cord compression and myelomalacia with a T5 pathological fracture with kyphosis and tumor burden of T4-7. Patient is status post tumor resection with laminectomy with orthopedics . Continue the patient on dexamethasone 4 mg every 6 hours Hematology/oncology team following and has also ordered MRI of the cervical spine which is scheduled for sometime today Home medications reviewed and resumed as appropriate Continue pain management, cautious with narcotic use given patient's age Patient to work with PT/OT therapy today and will await notes to determine if patient will require ECF or home with rehab in the outpatient setting The impression and plan of care has been dictated by Jing Benjamin, Nurse Practitioner as directed. Dr. Melanie MD I have performed a history and examination and MDM of this patient, discussed the same with the dictator, and agree with the dictator's assessment and plan as written ,documented as a scribe. Based on total visit time, I have performed more than 50% of the visit. Objective - Vital Signs Vital signs: Vital Signs Temp 98.9 F 08/25/24 01:50 Pulse 61 08/25/24 01:50 Resp 15 08/25/24 01:50 BP 148/61 08/25/24 01:50 Pulse Ox 93 L 08/25/24 01:50 FiO2 Intake & Output 08/24/24 08/24/24 08/25/24 06:59 18:59 06:59 Intake Total 740 Output Total 1210 1120 750 Balance -470 -1120 -750 Intake: IV 500 Oral 240 Output: Drainage 60 20 Right Upper Posterior 60 20 Back Urine 850 1100 750 Estimated Blood Loss 300 Other: Voiding Method Indwelling Catheter Indwelling Catheter Indwelling Catheter - Labs CBC & Chem 7: 08/24/24 03:27 08/24/24 03:27 Labs: Abnormal Lab Results - Last 24 Hours (Table) 08/24/24 08/24/24 08/24/24 Range/Units 03:27 03:27 06:17 WBC 14.00 H (4.50-10.00) X 10*3/uL Immature Gran # 0.09 H (0.00-0.04) X 10*3/uL Neutrophils # 12.52 H (1.80-7.70) X 10*3/uL Lymphocytes # 0.54 L (0.90-5.00) X 10*3/uL Eosinophils # 0 L (0.04-0.35) X 10*3/uL BUN/Creatinine Ratio 26.00 H (12.00-20.00) Ratio Glucose 122 H (70-110) mg/dL POC Glucose (mg/dL) 145 H (70-110) mg/dL 08/24/24 08/24/24 08/24/24 Range/Units 11:36 16:44 20:51 WBC (4.50-10.00) X 10*3/uL Immature Gran # (0.00-0.04) X 10*3/uL Neutrophils # (1.80-7.70) X 10*3/uL Lymphocytes # (0.90-5.00) X 10*3/uL Eosinophils # (0.04-0.35) X 10*3/uL BUN/Creatinine Ratio (12.00-20.00) Ratio Glucose (70-110) mg/dL POC Glucose (mg/dL) 140 H 125 H 131 H (70-110) mg/dL 08/25/24 Range/Units 02:45 WBC (4.50-10.00) X 10*3/uL Immature Gran # (0.00-0.04) X 10*3/uL Neutrophils # (1.80-7.70) X 10*3/uL Lymphocytes # (0.90-5.00) X 10*3/uL Eosinophils # (0.04-0.35) X 10*3/uL BUN/Creatinine Ratio (12.00-20.00) Ratio Glucose (70-110) mg/dL POC Glucose (mg/dL) 153 H (70-110) mg/dL
[2024-08-25 06:18] LABS: Glucose,Whole Blood 123 mg/dL (70-110)
[2024-08-25] MEDS: SENNOSIDES-DOCUSATE SODIUM 1 EACH TAB PO PRN (06:50)
[2024-08-25 10:46] LABS: Basophils # (A) 0.02 X 10*3/uL (0.00-0.10); Basophils % (A) 0.2 %; Eosinophils # (A) 0 X 10*3/uL (0.04-0.35); Eosinophils % (A) 0 %; HCT 35.3 % (37.2-46.3); HGB 11.7 g/dL (12.0-15.0); Lymphocytes # (A) 0.51 X 10*3/uL (0.90-5.00); Lymphocytes % (A) 4.8 %; MCH 29.3 pg (27.0-32.0); MCHC 33.1 g/dL (32.0-37.0); MCV 88.3 FL (80.0-97.0); Mean Platelet Volume 11.7 FL (9.5-12.2); Monocytes # (A) 0.78 X 10*3/uL (0.20-1.00); Monocytes % (A) 7.3 %; NRBC Per 100 WBC 0 X 10*3/uL (0.00-0.01); Neutrophils # (A) 9.28 X 10*3/uL (1.80-7.70); Neutrophils % (A) 86.9 %; Platelet Count 180 X 10*3/uL (140-440); RDW 13.7 % (11.5-14.5); WBC 10.68 X 10*3/uL (4.50-10.00)
[2024-08-25 10:57] LABS: Blood Urea Nitrogen 17.5 mg/dL (9.0-27.0); Calcium 8.1 mg/dL (8.7-10.3); Carbon Dioxide 27.1 mmol/L (21.6-31.8); Chloride 104 mmol/L (96-109); Glucose 129 mg/dL (70-110); Magnesium 2.2 mg/dL (1.5-2.4); Potassium 4.2 mmol/L (3.5-5.5); Sodium 140 mmol/L (135-145)
[2024-08-25 11:36] LABS: Glucose,Whole Blood 136 mg/dL (70-110)
--- NOTE | 2024-08-25 12:11 | P.PN ---
Subjective Progress Note Date: 08/25/24 Principal diagnosis: Pathological fracture T5 with T4-6 severe stenosis and tumor burden due to metestatic lung cancer with thoracic myelopathy PROCEDURE: T3-7 STABILIZATION WITH T4-6 LAMINECTOMY AND TUMOR RESECTION Patient was seen at bedside this morning lying in the semirecumbent position in bed with dressing and drain in place over thoracic spine as well as Lamar in place. Patient says she is looking forward to working with therapy later this morning. Patient did have a long discussion with her children yesterday while they were visiting and she says she would like to go to rehab instead of going home at this time. Case management working on rehab placement. Patient says her pain is well-controlled with oral medication. Patient denies any other issues at this time. Objective - Vital Signs Vital signs: Vital Signs Temp 98.8 F 08/25/24 08:13 Pulse 68 08/25/24 08:13 Resp 20 08/25/24 09:29 BP 162/75 08/25/24 08:13 Pulse Ox 93 L 08/25/24 01:50 FiO2 Intake & Output 08/24/24 08/25/24 08/25/24 18:59 06:59 18:59 Output Total 1120 755 5 Balance -1120 -755 -5 Output: Drainage 20 5 5 Right Upper Posterior 20 5 5 Back Urine 1100 750 Other: Voiding Method Indwelling Catheter Indwelling Catheter Indwelling Catheter - Exam Dressing appears to be clean, dry, intact of the lumbar spine with Hemovac drain in place. Hemovac drain was removed at bedside this morning and dressing was changed. Sutures well aligned and intact. Negative for any drainage. Lamar is currently in place. Maintain dressing clean, dry, intact. Sensation is equal, symmetric, intact on exam. There is some generalized tenderness with patient over the thoracic spine exam near incision. Nontender on rest of exam. Patient does have good range of motion in the bilateral lower and upper extremities on exam. 4/5 in all major motor groups in bilateral upper and lower extremities. Radial pulse intact, 2+ bilaterally. Cap refill under 3 seconds in digits of upper extremities. Negative Homans. Negative Gerald bilaterally. - Labs CBC & Chem 7: 08/25/24 02:35 08/25/24 02:35 Labs: Abnormal Lab Results - Last 24 Hours (Table) 02/08/24/24 08/24/24 Range/Units 11:36 16:44 20:51 POC Glucose (mg/dL) 140 H 125 H 131 H (70-110) mg/dL 08/25/24 08/25/24 Range/Units 02:45 06:17 POC Glucose (mg/dL) 153 H 123 H (70-110) mg/dL Assessment and Plan Assessment: 1. Pathological fracture T5 with T4-6 severe stenosis and tumor burden due to metastatic lung cancer with thoracic myelopathy -Postop day 2 status post T3-T7 stabilization with T4-6 laminectomy and tumor resection Plan: 1. Pathological fracture T5 with T4-6 severe stenosis and tumor burden due to metastatic lung cancer with thoracic myelopathy - T3-T7 stabilization with T4-6 laminectomy and tumor resection surgery performed 08/23/2024. Patient stable at bedside this morning with Lamar and dressing and drain in place. Drain removed at bedside and dressing changed at bedside this morning. Patient did work with therapy yesterday morning. Maintain dressing clean, dry, intact at this time. Lamar to be removed. Pain medication as needed. Continue with Decadron for now. Plan for discharge to rehab within the next few days. Discharge per medicine 2. Appreciate medical management 3. Pain management -Tylenol; Flexeril; Percocet 4. DVT prophylaxis -mechanical 5. GI prophylaxis -Protonix; senna 6. PT/OT weightbearing as tolerated with walker and assistance as needed 7. Encourage incentive spirometer use 8. Discharge planning - Plan for discharge to rehab within the next few days. Discharge per medicine Time with Patient: Less than 30
--- NOTE | 2024-08-25 16:35 | P.CONS ---
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 She was treated with mastectomy in June 2023. She was noncompliant and did not undergo adjuvant chemotherapy and declined radiotherapy evaluation. She was unfortunately found to have bone metastasis this past fall. She presented to the emergency room on August 21 with increased difficulty ambulating. The patient was evaluated by orthopedic associates in July 2024 secondary to worsening back pain. A July 14 MRI of the T-spine showed a compression fracture at T5 with bony retropulsion into the spinal canal. There was epidural enhancement involving T4 through T6. Numerous other bony metastasis were noted. The patient was evaluated in medical and radiation oncology as an outpatient on August 21. Unfortunately, she had developed worsening difficulty with ambulation and lower extremity weakness. She was sent to the emergency room. MRI of the T-spine from August 22 revealed severe spinal canal stenosis and T5 pathologic fracture. There was felt to be a spinal cord compression at this region. The patient was taken to the OR by Dr. Lora on 08/23/24. She underwent a T4 to 6 laminectomy with tumor resection and T3 to 7 stabilization. Postoperatively, the patient is doing quite well. She is using a walker for safety, but states she has been able to ambulate in the [place] today. She reports no significant bladder or bowel complaints. She is no longer having numbness or tingling in the lower extremities. She is uncertain whether she would like to go to an [facility] following discharge or home. Review of Systems Constitutional: Denies chills, Denies fever Cardiovascular: Denies chest pain Respiratory: Denies cough Gastrointestinal: Denies abdominal pain, Denies constipation Genitourinary: Denies difficulty voiding Musculoskeletal: Reports as per HPI Integumentary: Denies rash Neurological: Denies aphasia, Denies ataxia Psychiatric: Denies anxiety Past Medical History Past Medical History: Cancer Additional Past Medical History / Comment(s): HX ANEMIA. bladder PROLAPSE, some urgency and leakage. left breast cancer History of Any Multi-Drug Resistant Organisms: None Reported Past Surgical History: Adenoidectomy, Hysterectomy, Tonsillectomy Additional Past Surgical History / Comment(s): BILAT CATARACTS REMOVED. DENTAL SX Past Anesthesia/Blood Transfusion Reactions: No Reported Reaction Past Psychological History: No Psychological Hx Reported Smoking Status: Former smoker Past Alcohol Use History: Rare Past Drug Use History: None Reported - Past Family History Mother Family Medical History: Cancer (breast) Sister(s) Family Medical History: Cancer Medications and Allergies Home Medications Medication Instructions Recorded Confirmed Type Ascorbic Acid [Vitamin C] 1,000 mg PO DAILY 08/21/24 08/21/24 History Cholecalciferol (Vitamin D3) 50 mcg PO DAILY 08/21/24 08/21/24 History [Vitamin D3 (50 Mcg = 2000 Iu)] Cyanocobalamin (Vitamin B-12) 1,000 mcg PO DAILY 08/21/24 08/21/24 History [Vitamin B-12] Lutein 20 mg PO DAILY 08/21/24 08/21/24 History Vitamin E (Dl,Tocopheryl Acet) 400 unit PO DAILY 08/21/24 08/21/24 History [Vitamin E (400 Iu = 180 mg)] oxyCODONE-APAP 5-325MG [Percocet 1 tab PO Q4H PRN 08/21/24 08/21/24 History 5-325 mg] Allergies Allergy/AdvReac Type Severity Reaction Status Date / Time apple Allergy Swelling Verified 08/21/24 15:25 mold Allergy Swelling Verified 08/21/24 15:25 INSECTICIDES Allergy Anaphylaxis Uncoded 08/21/24 15:25 Physical Exam Vitals: Vital Signs Temp Pulse Resp BP Pulse Ox 08/25/24 14:23 98.7 F 54 L 18 185/74 100 08/25/24 09:29 20 08/25/24 08:13 98.8 F 68 20 162/75 08/25/24 01:50 98.9 F 61 15 148/61 93 L 08/24/24 19:26 98.4 F 63 15 138/71 94 L Intake and Output 08/25/24 08/25/24 08/25/24 06:59 14:59 22:59 Output Total 755 5 Balance -755 -5 Output: Drainage 5 5 Right Upper Posterior 5 5 Back Urine 750 Other: Voiding Method Indwelling Catheter # Voids 1 - Constitutional General appearance: no acute distress - EENT Eyes: EOMI, PERRLA ENT: hearing grossly normal - Neck Neck: no lymphadenopathy - Respiratory Respiratory: bilateral: CTA - Cardiovascular Rhythm: regular - Integumentary Integumentary: no calor - Neurologic Neurologic: CNII-XII intact - Musculoskeletal Musculoskeletal: strength equal bilaterally - Psychiatric Psychiatric: A&O x's 3, appropriate affect Results CBC & Chem 7: 08/25/24 02:35 08/25/24 02:35 Labs: Abnormal Lab Results - Last 24 Hours (Table) 08/24/24 08/24/24 08/25/24 Range/Units 16:44 20:51 02:35 WBC 10.68 H (4.50-10.00) X 10*3/uL RBC 4.00 L (4.10-5.20) X 10*6/uL Hgb 11.7 L (12.0-15.0) g/dL Hct 35.3 L (37.2-46.3) % Immature Gran # 0.09 H (0.00-0.04) X 10*3/uL Neutrophils # 9.28 H (1.80-7.70) X 10*3/uL Lymphocytes # 0.51 L (0.90-5.00) X 10*3/uL Eosinophils # 0 L (0.04-0.35) X 10*3/uL BUN/Creatinine Ratio (12.00-20.00) Ratio Glucose (70-110) mg/dL POC Glucose (mg/dL) 125 H 131 H (70-110) mg/dL Calcium (8.7-10.3) mg/dL 08/25/24 08/25/24 08/25/24 Range/Units 02:35 02:45 06:17 WBC (4.50-10.00) X 10*3/uL RBC (4.10-5.20) X 10*6/uL Hgb (12.0-15.0) g/dL Hct (37.2-46.3) % Immature Gran # (0.00-0.04) X 10*3/uL Neutrophils # (1.80-7.70) X 10*3/uL Lymphocytes # (0.90-5.00) X 10*3/uL Eosinophils # (0.04-0.35) X 10*3/uL BUN/Creatinine Ratio 25.00 H (12.00-20.00) Ratio Glucose 129 H (70-110) mg/dL POC Glucose (mg/dL) 153 H 123 H (70-110) mg/dL Calcium 8.1 L (8.7-10.3) mg/dL 08/25/24 Range/Units 11:35 WBC (4.50-10.00) X 10*3/uL RBC (4.10-5.20) X 10*6/uL Hgb (12.0-15.0) g/dL Hct (37.2-46.3) % Immature Gran # (0.00-0.04) X 10*3/uL Neutrophils # (1.80-7.70) X 10*3/uL Lymphocytes # (0.90-5.00) X 10*3/uL Eosinophils # (0.04-0.35) X 10*3/uL BUN/Creatinine Ratio (12.00-20.00) Ratio Glucose (70-110) mg/dL POC Glucose (mg/dL) 136 H (70-110) mg/dL Calcium (8.7-10.3) mg/dL Assessment and Plan Assessment: The patient is an 79-year-old female with a history of a stage III, 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 She was treated with mastectomy in June 2023. She was noncompliant and did not undergo adjuvant chemotherapy and declined radiotherapy evaluation. She was unfortunately found to have bone metastasis this past fall. She presented to the emergency room on August 21 with increased difficulty ambulating. She is status post laminectomy and stabilization from T3 to 7 on August 23. Plan: 1. Spinal cord compression: Patient is doing quite well on postoperative day 2. She has been able to ambulate, and feels her lower extremity strength is improved. I discussed with the patient and her [id number] that we would recommend postoperative radiotherapy to this region. I explained that the patient would be at risk for recurrent disease at this site without additional treatment. Although the patient is not enthusiastic regarding radiation, she seemed to understand the importance. We will plan to have her return to clinic within the next 2 weeks. 2. Metastatic breast cancer: As detailed above, despite presenting with locally advanced disease back in 2022, the patient is previously declined chemotherapy and radiotherapy. She now unfortunately has numerous areas of bone metastases. She will need outpatient oncology follow-up. Time with Patient: Greater than 30
[2024-08-25 16:49] LABS: Glucose,Whole Blood 144 mg/dL (70-110)
[2024-08-25 20:31] LABS: Glucose,Whole Blood 151 mg/dL (70-110)
[2024-08-26 03:08] LABS: Glucose,Whole Blood 163 mg/dL (70-110)
--- NOTE | 2024-08-26 05:28 | P.PN ---
Subjective Progress Note Date: 08/25/24 This is a pleasant 79 years old female who presents because of back pain and suspicious for metastatic disease to the spine sent by her oncologist Dr. Glaser. Patient states that her problem started on April 20, 2024 when she was doing some heavy work like picking up the trailer she started having pain about her left shoulder blade, which was gradually getting worse over the next 2 weeks it progressed to the front of the chest and below her left breast where she had mastectomy from previous breast cancer before. She follow-up with her PCP, x- ray was unremarkable for her spine, she was referred to orthopedic team where she had bone scan and after referral to her oncologist Dr. Glaser she had MRI with contrast done about 3 weeks ago, she received a call from Dr. Glaser directed her to the emergency room just prior to hospitalization Patient complains from back pain 10/10 in the upper back radiating across the left to her front chest Complains from weakness in her both lower extremities but states this symmetrical from the knee down for 1.5 weeks with mild paresthesia and tingling on the side of both feet started yesterday She denies saddle paresthesia, she denies urine or bowel incontinence She denies any other specific GI/ symptoms no headache dizziness weakness numbness other than above no chest pain or dyspnea She denies smoking alcohol or illicit drugs As per signout I received from ED service, Dr. Lora team was contacted and he recommended to a admit patient under medical service was put the orthopedic team on consult. Orthopedic team already aware of the patient on admission Patient afebrile Labs unremarkable CBC, BMP, LFT CT of the cervical and thoracic spine showing metastatic disease to T4 and T6 with possible metastasis and pathological fracture of T5 08/22 Patient pains feels better 1/10 in her upper back which is radiating to the left breast area at the site of her previous mastectomy MRI of the cervical and thoracic spine is pending She remains on dexamethasone She remains on pain medication Family at bedside and all questions answered 08/23/2024 Patient is seen in follow-up underwent multiple images including MRI of the thoracic spine which was indicative of severe stenosis with tumor burden and fractures of the T5. Patient is scheduled to undergo surgical intervention with orthopedics this afternoon. Patient is currently n.p.o. and diet will be resumed once cleared by surgery. Oncology following as well and patient will need PT/OT therapy evaluation. Oncology is following with history of breast cancer with mets to the spine. Cervical MRI ordered and pending as well per oncology for continued weakness and evaluation. Patient is afebrile with no reports of chest pain or shortness of breath. Given patient's age she would be considered low to moderate risk and is willing to proceed with surgical intervention to enhance quality of life. Patient is unable to walk at this time. 08/24/2024 Patient is seen in follow-up today scheduled to undergo cervical MRI sometime today and patient is status post surgical interventions with orthopedics. Large tumor burden noted in the thoracic spine with significant kyphoplasty. Patient is up in the chair continues to have pain and weakness and will be working with physical therapy today. Oncology following as well at this time. Patient is afebrile with no reports of chest pain or shortness of breath. Patient tolerating diet with not much of an appetite, encourage small frequent meals and close monitoring of blood sugars. 08/25/2024 Patient seen in follow-up today with multiple consultations following. Radiation oncology has evaluated the patient recommending outpatient follow-up for possible radiotherapy and will follow-up with Dr. Tarango in the clinic. Patient also being followed by oncology and follows with Dr. Glaser and will continue. Patient reports has been up and walking and had Lamar catheter removed awaiting to void. Patient denies bowel movement but is reporting gas and tolerating diet. Pain is currently controlled although is continuing to use IV Dilaudid. Patient was able to work with physical therapy and recommend rehab as patient lives alone and would benefit. Patient is agreeable and case management is following. Patient will require insurance authorization. Review of systems: Constitutional: No reports of fatigue, fever, or chills Cardiovascular: No reports of chest pain or palpitations Respiratory: No reports of shortness of breath or cough GI: No reports of nausea, vomiting, or diarrhea : No reports of dysuria or retention Neurovascular: reports of generalized weakness and continued back pain All medications have been reviewed Physical exam: GENERAL: The patient is alert and oriented x3, not in any acute distress. Well developed, elderly appearing. HEENT: Pupils are round and equally reacting to light. EOMI. No scleral icterus. No conjunctival pallor. Normocephalic, atraumatic. No pharyngeal erythema. No thyromegaly. CARDIOVASCULAR: S1 and S2 present. No murmurs, rubs, or gallops. PULMONARY: Chest is clear to auscultation, no wheezing , no crackles. ABDOMEN: Soft, nontender, nondistended, normoactive bowel sounds. No palpable organomegaly. MUSCULOSKELETAL: No joint swelling or deformity. EXTREMITIES: No cyanosis, clubbing, or pedal edema. NEUROLOGICAL: Gross neurological examination did not reveal any focal deficits. Diffusely weak SKIN: No rashes. no petechiae. 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 Tumor burden of T4-7 noted on imaging Status post T3-7 stabilization with T4-6 laminectomy and tumor resection on 08/23/2024 History of breast cancer status postmastectomy with metastasis to the spine Bilateral lower extremity weakness and numbness likely secondary to severe spin al canal stenosis, improving GI prophylaxis DVT prophylaxis Full code Plan: Patient is status post tumor resection with laminectomy with orthopedics as MRI of the cervical thoracic spine shows severe stenosis T4-6 with cord compression and myelomalacia with a T5 pathological fracture with kyphosis and tumor burden of T4-7. Continue the patient on dexamethasone 4 mg every 6 hours, continue with achs accuchecks and sliding scale for coverage. Patient is not diabetic Hematology/oncology following as well as radiation oncology recommending radiation. Patient will follow up in the clinic outpatient Home medications reviewed and resumed as appropriate Continue pain management, cautious with narcotic use given patient's age Patient to work with PT/OT therapy today and will await notes to determine if patient will require ECF or home with rehab in the outpatient setting. PT recommends rehab as she lives alone and concerns for falling. Case management following and has placed referrals. Patient will require insurance auth. The impression and plan of care has been dictated by Jing Benjamin, Nurse Practitioner as directed. Dr. Melanie MD I have performed a history and examination and MDM of this patient, discussed the same with the dictator, and agree with the dictator's assessment and plan as written ,documented as a scribe. Based on total visit time, I have performed more than 50% of the visit. Objective - Vital Signs Vital signs: Vital Signs Temp 98.8 F 08/25/24 08:13 Pulse 68 08/25/24 08:13 Resp 20 08/25/24 09:29 BP 162/75 08/25/24 08:13 Pulse Ox 93 L 08/25/24 01:50 FiO2 Intake & Output 08/24/24 08/25/24 08/25/24 18:59 06:59 18:59 Output Total 1120 755 5 Balance -1120 -755 -5 Output: Drainage 20 5 5 Right Upper Posterior 20 5 5 Back Urine 1100 750 Other: Voiding Method Indwelling Catheter Indwelling Catheter Indwelling Catheter - Labs CBC & Chem 7: 08/25/24 02:35 08/25/24 02:35 Labs: Abnormal Lab Results - Last 24 Hours (Table) 08/24/24 08/24/24 08/24/24 Range/Units 11:36 16:44 20:51 POC Glucose (mg/dL) 140 H 125 H 131 H (70-110) mg/dL 08/25/24 08/25/24 Range/Units 02:45 06:17 POC Glucose (mg/dL) 153 H 123 H (70-110) mg/dL
[2024-08-26 06:19] LABS: Glucose,Whole Blood 156 mg/dL (70-110)
[2024-08-26] MEDS: MAGNESIUM HYDROXIDE 2,400 MG/30 ML CUP PO PRN (08:21)
[2024-08-26 10:01] LABS: Basophils # (A) 0.02 X 10*3/uL (0.00-0.10); Basophils % (A) 0.2 %; Eosinophils # (A) 0 X 10*3/uL (0.04-0.35); Eosinophils % (A) 0 %; HCT 38.3 % (37.2-46.3); HGB 12.5 g/dL (12.0-15.0); Lymphocytes # (A) 0.69 X 10*3/uL (0.90-5.00); Lymphocytes % (A) 5.9 %; MCH 29.3 pg (27.0-32.0); MCHC 32.6 g/dL (32.0-37.0); MCV 89.7 FL (80.0-97.0); Mean Platelet Volume 11.8 FL (9.5-12.2); Monocytes # (A) 0.82 X 10*3/uL (0.20-1.00); NRBC Per 100 WBC 0 X 10*3/uL (0.00-0.01); Neutrophils # (A) 10.13 X 10*3/uL (1.80-7.70); Neutrophils % (A) 86.1 %; Platelet Count 216 X 10*3/uL (140-440); RBC 4.27 X 10*6/uL (4.10-5.20); RDW 13.9 % (11.5-14.5); WBC 11.75 X 10*3/uL (4.50-10.00)
[2024-08-26 10:13] LABS: BUN/Creat Ratio 25.29 Ratio (12.00-20.00); Blood Urea Nitrogen 17.7 mg/dL (9.0-27.0); Calcium 8.3 mg/dL (8.7-10.3); Carbon Dioxide 24.2 mmol/L (21.6-31.8); Chloride 104 mmol/L (96-109); Glucose 170 mg/dL (70-110); Sodium 140 mmol/L (135-145)
[2024-08-26 12:09] LABS: Glucose,Whole Blood 155 mg/dL (70-110)
[2024-08-26 16:59] LABS: Glucose,Whole Blood 123 mg/dL (70-110)
--- NOTE | 2024-08-26 19:45 | P.PN ---
Subjective Progress Note Date: 08/26/24 This is a pleasant 79 years old female who presents because of back pain and suspicious for metastatic disease to the spine sent by her oncologist Dr. Glaser. Patient states that her problem started on April 20, 2024 when she was doing some heavy work like picking up the trailer she started having pain about her left shoulder blade, which was gradually getting worse over the next 2 weeks it progressed to the front of the chest and below her left breast where she had mastectomy from previous breast cancer before. She follow-up with her PCP, x- ray was unremarkable for her spine, she was referred to orthopedic team where she had bone scan and after referral to her oncologist Dr. Glaser she had MRI w ith contrast done about 3 weeks ago, she received a call from Dr. Glaser directed her to the emergency room just prior to hospitalization Patient complains from back pain 10/10 in the upper back radiating across the left to her front chest Complains from weakness in her both lower extremities but states this symmetrical from the knee down for 1.5 weeks with mild paresthesia and tingling on the side of both feet started yesterday She denies saddle paresthesia, she denies urine or bowel incontinence She denies any other specific GI/ symptoms no headache dizziness weakness numbness other than above no chest pain or dyspnea She denies smoking alcohol or illicit drugs As per signout I received from ED service, Dr. Lora team was contacted and he recommended to a admit patient under medical service was put the orthopedic team on consult. Orthopedic team already aware of the patient on admission Patient afebrile Labs unremarkable CBC, BMP, LFT CT of the cervical and thoracic spine showing metastatic disease to T4 and T6 with possible metastasis and pathological fracture of T5 08/22 Patient pains feels better 1/10 in her upper back which is radiating to the left breast area at the site of her previous mastectomy MRI of the cervical and thoracic spine is pending She remains on dexamethasone She remains on pain medication Family at bedside and all questions answered 08/23/2024 Patient is seen in follow-up underwent multiple images including MRI of the thoracic spine which was indicative of severe stenosis with tumor burden and fractures of the T5. Patient is scheduled to undergo surgical intervention with orthopedics this afternoon. Patient is currently n.p.o. and diet will be resumed once cleared by surgery. Oncology following as well and patient will need PT/OT therapy evaluation. Oncology is following with history of breast cancer with mets to the spine. Cervical MRI ordered and pending as well per oncology for continued weakness and evaluation. Patient is afebrile with no reports of chest pain or shortness of breath. Given patient's age she would be considered low to moderate risk and is willing to proceed with surgical intervention to enhance quality of life. Patient is unable to walk at this time. 08/24/2024 Patient is seen in follow-up today scheduled to undergo cervical MRI sometime today and patient is status post surgical interventions with orthopedics. Large tumor burden noted in the thoracic spine with significant kyphoplasty. Patient is up in the chair continues to have pain and weakness and will be working with physical therapy today. Oncology following as well at this time. Patient is afebrile with no reports of chest pain or shortness of breath. Patient tolerating diet with not much of an appetite, encourage small frequent meals and close monitoring of blood sugars. 08/25/2024 Patient seen in follow-up today with multiple consultations following. Radiation oncology has evaluated the patient recommending outpatient follow-up for possible radiotherapy and will follow-up with Dr. Tarango in the clinic. Patient also being followed by oncology and follows with Dr. Glaser and will continue. Patient reports has been up and walking and had Lamar catheter removed awaiting to void. Patient denies bowel movement but is reporting gas and tolerating diet. Pain is currently controlled although is continuing to use IV Dilaudid. Patient was able to work with physical therapy and recommend rehab as patient lives alone and would benefit. Patient is agreeable and case management is following. Patient will require insurance authorization. 08/26/2024 Patient is evaluated today in follow up on the medical floor. Patient is now considering discharge home vs. subacute rehab and will plan to see physical therapy on wednesday for re-evaluation. Patient was evaluated by radiationoncology with plans to follow up on the office on discharge. Continues on high dose IV dexamethasone. Appetite has been improving. She is urinating without difficulty. She is having bowel movements. States she was able to walk to the nurses station motel front desk attendant with a walker and back to her room. Oxygen saturations slightly decreased patient refused chest xray. saturations this afternoon 96% on lungs are clear in all lung lassiter and OK to hold off on chest xray at this time. Review of systems: Constitutional: No reports of fatigue, fever, or chills Cardiovascular: No reports of chest pain or palpitations Respiratory: No reports of shortness of breath or cough GI: No reports of nausea, vomiting, or diarrhea : No reports of dysuria or retention Neurovascular: reports of generalized weakness and continued back pain All medications have been reviewed Physical exam: GENERAL: The patient is alert and oriented x3, not in any acute distress. Well developed, elderly appearing. HEENT: Pupils are round and equally reacting to light. EOMI. No scleral icterus. No conjunctival pallor. Normocephalic, atraumatic. No pharyngeal erythema. No thyromegaly. CARDIOVASCULAR: S1 and S2 present. No murmurs, rubs, or gallops. PULMONARY: Chest is clear to auscultation, no wheezing , no crackles. ABDOMEN: Soft, nontender, nondistended, normoactive bowel sounds. No palpable organomegaly. MUSCULOSKELETAL: No joint swelling or deformity. EXTREMITIES: No cyanosis, clubbing, or pedal edema. NEUROLOGICAL: Gross neurological examination did not reveal any focal deficits. Diffusely weak SKIN: No rashes. no petechiae. 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 Tumor burden of T4-7 noted on imaging Status post T3-7 stabilization with T4-6 laminectomy and tumor resection on 08/23/2024 History of breast cancer status postmastectomy with metastasis to the spine Bilateral lower extremity weakness and numbness likely secondary to severe spinal canal stenosis, improving GI prophylaxis DVT prophylaxis Full code Plan: Patient is status post tumor resection with laminectomy with orthopedics as MRI of the cervical thoracic spine shows severe stenosis T4-6 with cord compression and myelomalacia with a T5 pathological fracture with kyphosis and tumor burden of T4-7. Continue the patient on dexamethasone 4 mg every 6 hours, continue with achs accuchecks and sliding scale for coverage. Patient is not diabetic Hematology/oncology following as well as radiation oncology recommending radiation. Patient will follow up in the clinic outpatient Home medications reviewed and resumed as appropriate Continue pain management, cautious with narcotic use given patient's age Patient to work with PT/OT therapy today and will await notes to determine if patient will require ECF or home with rehab in the outpatient setting. PT re commends rehab as she lives alone and concerns for falling. Case management following and has placed referrals. Patient will require insurance auth. Patient now wanting to discharge home and feels she won't benefit from allison and wants to return home with [facility]. Discussed with patient and family at the bedside and will plan for re-eval with PT on Wednesday and discharge planning with social work. The impression and plan of care has been dictated by Alyx Álvarez, Nurse Practitioner as directed. Dr. Melanie MD I have performed a history and examination and MDM of this patient, discussed the same with the dictator, and agree with the dictator's assessment and plan as written ,documented as a scribe. Based on total visit time, I have performed more than 50% of the visit. Objective - Vital Signs Vital signs: Vital Signs Temp 98.3 F 08/26/24 13:45 Pulse 61 08/26/24 13:45 Resp 16 08/26/24 13:45 BP 150/76 08/26/24 13:45 Pulse Ox 96 08/26/24 13:45 FiO2 Intake & Output 08/25/24 08/26/24 08/26/24 18:59 06:59 18:59 Output Total 5 Balance -5 Output: Drainage 5 Right Upper Posterior 5 Back Other: Voiding Method Indwelling Catheter Toilet # Voids 1 - Labs CBC & Chem 7: 08/26/24 03:37 08/26/24 03:37 Labs: Abnormal Lab Results - Last 24 Hours (Table) 08/25/24 08/25/24 08/26/24 Range/Units 16:47 20:29 03:02 WBC (4.50-10.00) X 10*3/uL Immature Gran # (0.00-0.04) X 10*3/uL Neutrophils # (1.80-7.70) X 10*3/uL Lymphocytes # (0.90-5.00) X 10*3/uL Eosinophils # (0.04-0.35) X 10*3/uL BUN/Creatinine Ratio (12.00-20.00) Ratio Glucose (70-110) mg/dL POC Glucose (mg/dL) 144 H 151 H 163 H (70-110) mg/dL Calcium (8.7-10.3) mg/dL 08/26/24 08/26/24 08/26/24 Range/Units 03:37 03:37 06:15 WBC 11.75 H (4.50-10.00) X 10*3/uL Immature Gran # 0.09 H (0.00-0.04) X 10*3/uL Neutrophils # 10.13 H (1.80-7.70) X 10*3/uL Lymphocytes # 0.69 L (0.90-5.00) X 10*3/uL Eosinophils # 0 L (0.04-0.35) X 10*3/uL BUN/Creatinine Ratio 25.29 H (12.00-20.00) Ratio Glucose 170 H (70-110) mg/dL POC Glucose (mg/dL) 156 H (70-110) mg/dL Calcium 8.3 L (8.7-10.3) mg/dL 08/26/24 Range/Units 12:06 WBC (4.50-10.00) X 10*3/uL Immature Gran # (0.00-0.04) X 10*3/uL Neutrophils # (1.80-7.70) X 10*3/uL Lymphocytes # (0.90-5.00) X 10*3/uL Eosinophils # (0.04-0.35) X 10*3/uL BUN/Creatinine Ratio (12.00-20.00) Ratio Glucose (70-110) mg/dL POC Glucose (mg/dL) 155 H (70-110) mg/dL Calcium (8.7-10.3) mg/dL Assessment and Plan Time with Patient: Less than 30
[2024-08-26 20:33] LABS: Glucose,Whole Blood 120 mg/dL (70-110)
[2024-08-26] MEDS: amLODIPine 5 MG TAB PO SCH (22:15)
[2024-08-27 01:56] LABS: Glucose,Whole Blood 125 mg/dL (70-110)
[2024-08-27 06:30] LABS: Glucose,Whole Blood 120 mg/dL (70-110)
[2024-08-27 11:13] LABS: Glucose,Whole Blood 126 mg/dL (70-110)
[2024-08-27 16:25] LABS: Glucose,Whole Blood 123 mg/dL (70-110)
--- NOTE | 2024-08-27 19:56 | P.PN ---
Subjective Progress Note Date: 08/27/24 This is a pleasant 79 years old female who presents because of back pain and suspicious for metastatic disease to the spine sent by her oncologist Dr. Glaser. Patient states that her problem started on April 20, 2024 when she was doing some heavy work like picking up the trailer she started having pain about her left shoulder blade, which was gradually getting worse over the next 2 weeks it progressed to the front of the chest and below her left breast where she had mastectomy from previous breast cancer before. She follow-up with her PCP, x- ray was unremarkable for her spine, she was referred to orthopedic team where she had bone scan and after referral to her oncologist Dr. Glaser she had MRI w ith contrast done about 3 weeks ago, she received a call from Dr. Glaser directed her to the emergency room just prior to hospitalization Patient complains from back pain 10/10 in the upper back radiating across the left to her front chest Complains from weakness in her both lower extremities but states this symmetrical from the knee down for 1.5 weeks with mild paresthesia and tingling on the side of both feet started yesterday She denies saddle paresthesia, she denies urine or bowel incontinence She denies any other specific GI/ symptoms no headache dizziness weakness numbness other than above no chest pain or dyspnea She denies smoking alcohol or illicit drugs As per signout I received from ED service, Dr. Lora team was contacted and he recommended to a admit patient under medical service was put the orthopedic team on consult. Orthopedic team already aware of the patient on admission Patient afebrile Labs unremarkable CBC, BMP, LFT CT of the cervical and thoracic spine showing metastatic disease to T4 and T6 with possible metastasis and pathological fracture of T5 08/22 Patient pains feels better 1/10 in her upper back which is radiating to the left breast area at the site of her previous mastectomy MRI of the cervical and thoracic spine is pending She remains on dexamethasone She remains on pain medication Family at bedside and all questions answered 08/23/2024 Patient is seen in follow-up underwent multiple images including MRI of the thoracic spine which was indicative of severe stenosis with tumor burden and fractures of the T5. Patient is scheduled to undergo surgical intervention with orthopedics this afternoon. Patient is currently n.p.o. and diet will be resumed once cleared by surgery. Oncology following as well and patient will need PT/OT therapy evaluation. Oncology is following with history of breast cancer with mets to the spine. Cervical MRI ordered and pending as well per oncology for continued weakness and evaluation. Patient is afebrile with no reports of chest pain or shortness of breath. Given patient's age she would be considered low to moderate risk and is willing to proceed with surgical intervention to enhance quality of life. Patient is unable to walk at this time. 08/24/2024 Patient is seen in follow-up today scheduled to undergo cervical MRI sometime today and patient is status post surgical interventions with orthopedics. Large tumor burden noted in the thoracic spine with significant kyphoplasty. Patient is up in the chair continues to have pain and weakness and will be working with physical therapy today. Oncology following as well at this time. Patient is afebrile with no reports of chest pain or shortness of breath. Patient tolerating diet with not much of an appetite, encourage small frequent meals and close monitoring of blood sugars. 08/25/2024 Patient seen in follow-up today with multiple consultations following. Radiation oncology has evaluated the patient recommending outpatient follow-up for possible radiotherapy and will follow-up with Dr. Tarango in the clinic. Patient also being followed by oncology and follows with Dr. Glaser and will continue. Patient reports has been up and walking and had Lamar catheter removed awaiting to void. Patient denies bowel movement but is reporting gas and tolerating diet. Pain is currently controlled although is continuing to use IV Dilaudid. Patient was able to work with physical therapy and recommend rehab as patient lives alone and would benefit. Patient is agreeable and case management is following. Patient will require insurance authorization. 08/26/2024 Patient is evaluated today in follow up on the medical floor. Patient is now considering discharge home vs. subacute rehab and will plan to see physical therapy on wednesday for re-evaluation. Patient was evaluated by radiationoncology with plans to follow up on the office on discharge. Continues on high dose IV dexamethasone. Appetite has been improving. She is urinating without difficulty. She is having bowel movements. States she was able to walk to the nurses station manager front office with a walker and back to her room. Oxygen saturations slightly decreased patient refused chest xray. saturations this afternoon 96% on lungs are clear in all lung lassiter and OK to hold off on chest xray at this time. 08/27/2024 Patient evaluated today in follow up currently resting in bed. No acute complaints today. Still wants to return home on discharge. PT to reevaluate patient tomorrow. Remains on IV dexamethason 4 mg Q6hour. Patient having elevated blood pressures this AM 160s systolic however did improved to 134/88 and will continue to monitor. Review of systems: Constitutional: No reports of fatigue, fever, or chills Cardiovascular: No reports of chest pain or palpitations Respiratory: No reports of shortness of breath or cough GI: No reports of nausea, vomiting, or diarrhea : No reports of dysuria or retention Neurovascular: reports of generalized weakness and continued back pain All medications have been reviewed Physical exam: GENERAL: The patient is alert and oriented x3, not in any acute distress. Well developed, elderly appearing. HEENT: Pupils are round and equally reacting to light. EOMI. No scleral icterus. No conjunctival pallor. Normocephalic, atraumatic. No pharyngeal erythema. No thyromegaly. CARDIOVASCULAR: S1 and S2 present. No murmurs, rubs, or gallops. PULMONARY: Chest is clear to auscultation, no wheezing , no crackles. ABDOMEN: Soft, nontender, nondistended, normoactive bowel sounds. No palpable organomegaly. MUSCULOSKELETAL: No joint swelling or deformity. EXTREMITIES: No cyanosis, clubbing, or pedal edema. NEUROLOGICAL: Gross neurological examination did not reveal any focal deficits. Diffusely weak SKIN: No rashes. no petechiae. Surgical dressing intact. 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 Tumor burden of T4-7 noted on imaging Status post T3-7 stabilization with T4-6 laminectomy and tumor resection on 08/23/2024 History of breast cancer status postmastectomy with metastasis to the spine Bilateral lower extremity weakness and numbness likely secondary to severe spinal canal stenosis, improving GI prophylaxis DVT prophylaxis Full code Plan: Patient is status post tumor resection with laminectomy with orthopedics as MRI of the cervical thoracic spine shows severe stenosis T4-6 with cord compression and myelomalacia with a T5 pathological fracture with kyphosis and tumor burden of T4-7. Continue the patient on dexamethasone 4 mg every 6 hours, continue with achs accuchecks and sliding scale for coverage. Patient is not diabetic Hematology/oncology following as well as radiation oncology recommending radiation. Patient will follow up in the clinic outpatient Home medications reviewed and resumed as appropriate Continue pain management, cautious with narcotic use given patient's age Patient to work with PT/OT therapy today and will await notes to determine if patient will require ECF or home with rehab in the outpatient setting. PT recommends rehab as she lives alone and concerns for falling. Case management following and has placed referrals. Patient will require insurance auth. Patient now wanting to discharge home and feels she won't benefit from allison and wants to return home with [facility]. Discussed with patient and family at the bedside and will plan for re-eval with PT on Wednesday and discharge planning with social work. The impression and plan of care has been dictated by Alyx Álvarez, Nurse Practitioner as directed. Dr. Melanie MD I have performed a history and examination and MDM of this patient, discussed the same with the dictator, and agree with the dictator's assessment and plan as written ,documented as a scribe. Based on total visit time, I have performed more than 50% of the visit. Objective - Vital Signs Vital signs: Vital Signs Temp 97.7 F 08/27/24 12:55 Pulse 64 08/27/24 12:55 Resp 18 08/27/24 12:55 BP 134/88 08/27/24 12:55 Pulse Ox 98 08/27/24 12:55 FiO2 Intake & Output 08/27/24 08/27/24 08/28/24 06:59 18:59 06:59 Other: Voiding Method Toilet # Voids 1 - Labs CBC & Chem 7: 08/26/24 03:37 08/26/24 03:37 Labs: Abnormal Lab Results - Last 24 Hours (Table) 08/26/24 08/27/24 08/27/24 Range/Units 20:33 01:55 06:29 POC Glucose (mg/dL) 120 H 125 H 120 H (70-110) mg/dL 08/27/24 08/27/24 Range/Units 11:12 16:24 POC Glucose (mg/dL) 126 H 123 H (70-110) mg/dL Assessment and Plan Time with Patient: Less than 30
[2024-08-27 20:45] LABS: Glucose,Whole Blood 140 mg/dL (70-110)
[2024-08-28 01:36] LABS: Glucose,Whole Blood 131 mg/dL (70-110)
[2024-08-28 06:21] LABS: Glucose,Whole Blood 133 mg/dL (70-110)
[2024-08-28 08:19] VITALS: BP 120/67; PULSE 67; RESP 15; TEMP 98.3
[2024-08-28 08:38] LABS: Basophils # (A) 0.02 X 10*3/uL (0.00-0.10); Basophils % (A) 0.2 %; Eosinophils # (A) 0 X 10*3/uL (0.04-0.35); Eosinophils % (A) 0 %; HCT 37.9 % (37.2-46.3); HGB 13.1 g/dL (12.0-15.0); Lymphocytes # (A) 0.77 X 10*3/uL (0.90-5.00); Lymphocytes % (A) 6.9 %; MCH 30.4 pg (27.0-32.0); MCHC 34.6 g/dL (32.0-37.0); MCV 87.9 FL (80.0-97.0); Mean Platelet Volume 11.6 FL (9.5-12.2); Monocytes # (A) 0.81 X 10*3/uL (0.20-1.00); Monocytes % (A) 7.2 %; NRBC Per 100 WBC 0 X 10*3/uL (0.00-0.01); Neutrophils # (A) 9.49 X 10*3/uL (1.80-7.70); Neutrophils % (A) 84.9 %; Platelet Count 255 X 10*3/uL (140-440); RBC 4.31 X 10*6/uL (4.10-5.20); RDW 13.8 % (11.5-14.5); WBC 11.18 X 10*3/uL (4.50-10.00)
[2024-08-28 11:53] LABS: Glucose,Whole Blood 99 mg/dL (70-110)
[2024-08-28 15:24] VITALS: BMI 26.2
== END 2024-08-28 15:43 | disposition home health service (06) | DRG 427 ==
LOC: EC 12:10 → 5NMEDONC 14:25 → 2SICU 08-23 16:55 → 4SSUR 08-23 19:32
PROVIDERS: ADMIT Internal Medicine; ATTEND Internal Medicine
PROC: 0RG7071 Fusion of 2 to 7 Thoracic Vertebral Joints with Autologous Tissue Substitute, Posterior Approach, Posterior Column, Open Approach (ICD-10-PCS; 2024-08-23)
PROC: 00NX0ZZ Release Thoracic Spinal Cord, Open Approach (ICD-10-PCS; 2024-08-23)
PROC: 0PB40ZX Excision of Thoracic Vertebra, Open Approach, Diagnostic (ICD-10-PCS; 2024-08-23)
PROC: 8E0WXBZ Computer Assisted Procedure of Trunk Region (ICD-10-PCS; 2024-08-23)
PROC: 0RG70AJ Fusion of 2 to 7 Thoracic Vertebral Joints with Interbody Fusion Device, Posterior Approach, Anterior Column, Open Approach (ICD-10-PCS; principal; 2024-08-23 08:30)
DX: C79.51 Secondary malignant neoplasm of bone (principal); C34.90 Malignant neoplasm of unspecified part of unspecified bronchus or lung; G95.89 Other specified diseases of spinal cord; G99.2 Myelopathy in diseases classified elsewhere; M84.58XA Pathological fracture in neoplastic disease, other specified site, initial encounter for fracture; C50.912 Malignant neoplasm of unspecified site of left female breast; M48.04 Spinal stenosis, thoracic region; R53.1 Weakness; M40.294 Other kyphosis, thoracic region; R26.2 Difficulty in walking, not elsewhere classified; R03.0 Elevated blood-pressure reading, without diagnosis of hypertension; M54.14 Radiculopathy, thoracic region; Z90.12 Acquired absence of left breast and nipple; Z87.891 Personal history of nicotine dependence; Z17.0 Estrogen receptor positive status [ER+]; Z17.21 Progesterone receptor positive status; Z91.198 Patient's noncompliance with other medical treatment and regimen for other reason; Z79.899 Other long term (current) drug therapy; Z80.3 Family history of malignant neoplasm of breast
CPT/HCPCS: 36415; 72100; 72125; 72128; 72156; 72157; 80048; 80053; 83036; 83735; 85025; 88307; 88311; 88341; 96361; 96374; 96375; 96376; 99285

== ENCOUNTER → 2024-10-05 | Outpatient (CLI) | payer MEDICARE, OTHER ==
[2024-10-05 12:08] LABS: African American GFR (CKD) >90 (>60 ml/min/1.73 sqM); Blood Urea Nitrogen 10 mg/dL (7-17); Non-African American GFR(CKD) 82 (>60 ml/min/1.73 sqM)
--- NOTE | 2024-10-05 13:30 | CT ---
CT chest with and without contrast. HISTORY: Lung cancer chest pain rule out pulmonary embolism. COMPARISON: None TECHNIQUE: Multiple axial images are obtained through the thorax before and after the uneventful admi nistration of nonionic IV contrast. FINDINGS: There is no thoracic aortic aneurysm, pulmonary embolism or mediastinal, hilar or axillary adenopathy . There is no suspicious lung mass or nodule. There is no airspace consolidation. There is mild interstitial scarring in the lung bases. There is no pleural effusion or pneumothorax. There are postsurgical changes of posterior metallic fusion from T3 through T7. There is a severe com pression fracture through T5 which is of abnormal intensity consistent with a pathologic fracture due to metastatic disease. There is a cord of methylmethacrylate glue extending from the lumen within the T4 segment into the az ygos vein There are multiple innumerable sclerotic densities throughout the dorsal spine, sternum and multiple ribs consistent with diffuse bone metastasis. There are no new pathological fractures. IMPRESSION: 1. Post surgical changes fusion from T3 through T7 for stabilization of a pathologic compression frac ture of T5 2. Diffuse sclerotic bone metastasis with no new pathologic fractures. 3. Methyl methacrylate glue extending from T4 into the azygos vein. 4. No evidence of pulmonary embolism or thoracic aortic aneurysm. 5. No acute cardiopulmonary disease. Mild chronic interstitial changes in the lung bases. [facility], Workstation: [email or web address] 10/05/2024 1:28 PM
== END | disposition home or self-care (01) ==
LOC: RADCTMAIN 11:24
PROVIDERS: ATTEND Radiology Radiation Oncology
DX: C79.51 Secondary malignant neoplasm of bone (principal); M48.54XA Collapsed vertebra, not elsewhere classified, thoracic region, initial encounter for fracture
CPT/HCPCS: 82565; 84520; 71270; 36415; Q9967

== ENCOUNTER → 2024-12-08 | Outpatient (CLI) | payer MEDICARE, OTHER ==
--- NOTE | 2024-12-10 22:50 | PE ---
EXAMINATION TYPE: PET CT fusion skull to thigh DATE OF EXAM: 12/08/2024 COMPARISON: CT entire spine August 21, 2024 HISTORY: Secondary malignant neoplasm of bone . Breast cancer progress study. TECHNIQUE: Following the intravenous administration of 11.37 mCi of F-18 FDG, whole body images are performed from the skull base to the midthigh. Images are reviewed on the computer in the coronal, a xial, and sagittal planes. Reconstructed rotating images are created on independent workstation and reviewed on the computer. A localization and attenuation correction CT is performed in conjunction with the PET scan. Blood glucose level equals 103 SCAN: Subsequent Scan FINDINGS: SKULL BASE AND NECK: No areas of abnormal hypermetabolic uptake. CHEST, MEDIASTINUM, AND HILAR REGION: Mild/moderate underlying emphysematous change with areas of con solidation in the posterior upper to mid lungs bilaterally. Mild hypermetabolic uptake, max SUV is 4. 57 on axial image 96. ABDOMEN AND PELVIS: Subtle just under 1.0 cm hyperdense focus in the hepatic dome max SUV is 5.27 on axial image 128 No additional areas of abnormal hypermetabolic uptake. OSSEOUS STRUCTURES: Postsurgical change to the thoracic spine is now present. Innumerable sclerotic o sseous metastatic lesions redemonstrated. Some abnormal hypermetabolic uptake. For reference left asp ect L5 level as max SUV 4.96, for reference ratio throughout the abdomen SUV of 4.[address]: Cardiomegaly with moderate to severe coronary artery calcification is present. Sigmoid colo sarah diverticulosis. Left breast is surgically absent. Uterus is surgically absent. Prominent soft tissue lesion anterior inferior to the bladder of uncerta in etiology axial image 249 just posterior to the pubic symphysis without definitive abnormal hyperm etabolic uptake IMPRESSION: Diffuse osseous metastatic disease seen. Some mild hypermetabolic uptake noted. Nonspecif ic near 1.0 cm hypermetabolic liver dome lesion. Metastatic focus cannot be excluded. Due to small si ze of the difficult to distinctly visualize on diagnostic CT or sample. Consider liver protocol CT or MRI without and with contrast further evaluate. [facility], , 12/10/2024 10:48 PM
== END | disposition home or self-care (01) ==
LOC: RADPETMAIN 13:16
PROVIDERS: ATTEND Radiology Radiation Oncology
DX: C50.412 Malignant neoplasm of upper-outer quadrant of left female breast (principal); C79.51 Secondary malignant neoplasm of bone
CPT/HCPCS: 78815; A9552